=== PATIENT | male | born 1955 | race Two or more races ===

== ENCOUNTER 2024-09-08 18:40 | Inpatient (IN) | payer OTHER, MEDICARE, SELFPAY ==
--- NOTE | 2024-09-08 18:54 | EDNOTE_ITS ---
ED SOB =RME/HPI General Chief Complaint: Shortness of Breath/Dyspnea Stated Complaint: SOB Time Seen by Provider: 09/08/24 18:52 Arrival date/time: 09/08/24 18:40 Limitations: no limitations RME / HPI RME / HPI Narrative: DR. GARCIA MAIN ED EVALUATION: 69-year-old male with past medical history significant for CAD presents to the Emergency Department with complaint of wheezing that started today. The patient was seen in the emergency department yesterday for wheezing and shortness of breath diagnosed with influenza and pneumonia. The patient states that he did take his antibiotic today. EMS reports that on arrival O2 sat was 80-90% and after DuoNeb it came up to 93%. Patient states he has decreased p.o. intake has not been able to eat well secondary to the cough. No chest pain but just feels bad. Related Data Previous Rx's ?Medication ?Instructions ?Recorded albuterol sulfate 90 mcg/actuation 2 puff inhalation Q6H PRN cough 5 09/07/24 aerosol inhaler days #8.5 grams azithromycin 250 mg tablet 250 mg PO QDAY 4 days #4 tabs 09/07/24 benzonatate 100 mg capsule 100 mg PO TID PRN cough #7 caps 09/07/24 dextromethorphan 5 mg-guaifenesin 20 ml PO Q4H PRN cough #118 mL 09/07/24 50 mg/5 mL oral liquid Allergies Allergy/AdvReac Type Severity Reaction Status Date / Time codeine Allergy Severe Palpitation Verified 08/11/23 16:53 s Review of Systems Review of Systems Systems Reviewed: All systems reviewed, normal except as documented Narrative Review of Systems: GEN: No fever, no chills, no weight loss EYES: No discharge, no visual changes, no pain HEENT: No ear pain, no congestion, no sore throat PULM: + shortness of breath/ wheezing, + cough CV: No chest pain, no dyspnea on exertion, no palpitations GI: No nausea, no vomiting, no diarrhea, no pain, no constipation : No frequency, no urgency and no dysuria MUSC/SKEL: No joint pain, no back pain SKIN: No rash PSYCH: No hallucinations, no depression HEME/LYMPH: No easy bleeding or bruising tendencies NEURO: No weakness, no headache Past Medical History Past Medical History CARDIAC: Positive Cardiac Disorders and Coronary Artery Disease GASTROINTESTINAL: Positive Gastrointestinal Disorders, Pancreatitis and Gall Bladder Disease PSYCHO/SOCIAL: Positive Anxiety Surgical History SURGICAL: Positive Cardiac Surgery and Open Heart Surgery Social History SMOKING STATUS: Never smoker SUBSTANCE USE: does not use ALCOHOL: Never ED Exam Narrative Physical exam: Patient sitting the bed, slightly tachypneic and having a coughing spell spell General Limitations: Present no limitations General appearance: Present alert and obese; Absent obtunded Head Head exam: Present atraumatic Eye Eye exam: Present normal appearance ENT ENT exam: Present normal exam, normal oropharynx and mucous membranes moist Neck Neck exam: Present normal inspection, full ROM and other (No JVD) Chest Chest inspection: Present normal inspection and symmetric chest wall rise Respiratory Respiratory exam: Present normal lung sounds bilaterally and other (Decreased respiratory rate bilaterally. With no wheezing. No stridor. Tachypnea but no accessory muscle use) Cardiovascular Cardiovascular exam: Present regular rate, normal rhythm and normal heart sounds Abdominal Exam Abdominal exam: Present soft, normal bowel sounds and other (Large abdomen) Extremities Exam Extremities exam: Present normal inspection and pedal edema (Minimal pitting edema at the ankles) Neurological Exam Neurological exam: Present alert, oriented X3 and CN II-XII intact Psychiatric Psychiatric exam: Present normal affect and normal mood Skin Skin exam: Present warm, dry, intact and normal color; Absent cyanosis, diaphoresis or mottled Course Course Course Narrative: 1945: Sepsis alert initiated. Orders made at this time are congruent with ED Adult Sepsis Order List. Re-evaluation is to be completed. 1957: Fluids started. 2030: Sepsis reassessment performed consisting of lab review, vitals, physical exam including auscultation of heart, lungs, and visual evaluation of capillary refills, mucosal membranes and extremities. Quality Measures Current suspected stage: sepsis Possible source: pulmonary Blood cultures o rdered: yes Antibiotic ordered: Yes Pertinent labs: 09/08/24 19:54 Procalcitonin 0.28 ng/ml (0.0-0.49) sepsis Orders Category Date Time Status Patient Condition Routine Admission 09/08/24 22:46 Ordered Activity as Tolerated Routine Care 09/08/24 22:46 Ordered Bedside Blood Glucose ACHS Care 09/08/24 22:[address] Screening NOW Care 09/08/24 19:47 Active EKG (ED ONLY) *Do not use* NOW Care 09/08/24 18:58 Completed Notify provider NEEDED Care 09/08/24 22:46 Active Diet Carbohydrate Consistent Diet 09/08/24 Breakfast Active CA echo doppler complete Routine Exams 09/08/24 22:[address] angio chest Stat Exams 09/08/24 19:47 Completed EKG (ED Only) Stat Exams 09/08/24 18:58 Draft XR chest 1V SEPSIS PROTOCOL Stat Exams 09/08/24 18:59 Completed ABG [Arterial Blood Gas] Stat Lab 09/08/24 22:55 Completed B-Type Natriuretic Peptide Stat Lab 09/08/24 19:54 Completed Basic Metabolic Panel AM DRAW Lab 09/09/24 05:00 Ordered Basic Metabolic Panel AM DRAW Lab 09/10/24 05:00 Ordered Basic Metabolic Panel AM DRAW Lab 09/11/24 05:00 Ordered Blood Culture (Lab) Stat Lab 09/08/24 19:26 Received CBC AM DRAW Lab 09/09/24 05:00 Ordered CBC AM DRAW Lab 09/10/24 05:00 Ordered CBC AM DRAW Lab 09/11/24 05:00 Ordered CBC Stat Lab 09/08/24 19:24 Completed Comprehensive Metabolic Panel Stat Lab 09/08/24 19:54 Completed Drug Screen,Urine Stat Lab 09/09/24 02:41 Completed Magnesium Stat Lab 09/08/24 19:54 Completed Partial Thromboplastin Time Stat Lab 09/08/24 19:24 Completed Procalcitonin Stat Lab 09/08/24 19:54 Completed Prothrombin Time with INR Stat Lab 09/08/24 19:24 Completed Troponin I Stat Lab 09/08/24 19:54 Completed Urinalysis Stat Lab 09/09/24 02:41 Completed Acetaminophen Tab [Tylenol Tab] Med 09/08/24 22:46 Active 650 mg PO Q6H PRN Azithromycin Inj [Zithromax Inj] 500 mg Med 09/08/24 22:45 Pending Sodium Chloride 0.9% 250 ml [Ns] 250 ml IV QDAY Azithromycin Inj [Zithromax Inj] 500 mg Med 09/08/24 23:30 Discontinued Sodium Chloride 0.9% 250 ml [Ns] 250 ml IV X1 Dexamethasone Inj [Decadron Inj] Med 09/08/24 22:45 Discontinued 10 mg IVP X1 ONE Dextrose 50% Syr [D50w Syringe Abboject] Med 09/08/24 22:42 Active 25 ml IV Q15MIN PRN Dextrose 50% Syr [D50w Syringe Abboject] Med 09/08/24 22:42 Active 50 ml IV Q15MIN PRN Enoxaparin [Lovenox] Med 09/09/24 09:00 Active 40 mg SC QDAY Glucagon Inj Med 09/08/24 22:42 Active 1 mg IM Q15MIN PRN Insulin Regular Med 09/09/24 07:30 Active See Protocol SC ACHS Oseltamivir [Tamiflu] Med 09/08/24 22:45 Active 75 mg PO BID Piper/Tazo Inj [Zosyn Inj] 3.375 gm Med 09/08/24 22:36 Discontinued Sodium Chloride 0.9% (P) [Ns 0.9% (P)] 50 ml IV X1 Sodium Chloride 0.9% 1000 ml [Ns] 1,000 ml Med 09/08/24 18:59 Discontinued IV 999 mls/hr cefTRIAXone/D5w 1gm IV premix [Rocephin/D5w 1gm IV Med 09/08/24 22:44 Pending premix] 50 ml IV QDAY cefTRIAXone/D5w 1gm IV premix [Rocephin/D5w 1gm IV Med 09/08/24 23:00 Discontinued premix] 50 ml IV X1 Code Status Routine Oth 09/08/24 22:46 Ordered BiPAP / CPAP NEEDED RT 09/08/24 22:38 Active BiPAP / CPAP NEEDED RT 09/08/24 22:42 Active Oxygen Delivery NOW RT 09/08/24 21:12 Active Vital Signs Vital signs: Vital Signs Temperature 102.1 F H 09/08/24 18:59 Pulse Rate 98 09/08/24 18:59 Respiratory Rate 29 H 09/08/24 18:59 Blood Pressure 135/69 H 09/08/24 18:59 Pulse Oximetry (%) 92 L 09/08/24 18:59 Oxygen Delivery Method Oxy Mask 09/08/24 18:59 Oxygen Flow Rate 10 09/08/24 18:59 Procedures -ED EKG Interpretation #1: Date of EK09/08/24 Time of EK:50 Rate: 93 Interpretation: Interpreted by me Additional EKG comment: sinus rhythm, rate 93, left anterior fascicular block, flattening T wave in lead 3 and AVF, no depressions or elevations, unchanged from EKG done 09/06/2024 Shortness of Breath / Dyspnea MDM Narrative MDM Narrative:: I, Marcela Leon, am scribing for and in the presence of Dr. Garcia. Differential diagnosis includes recurrent pneumonia, failed outpatient pneumonia, pulmonary embolism, electrolyte abnormality, pleural effusion, pericardial disease. While in emergency department the patient was given oxygen, and a sepsis alert,. Patient given DuoNeb, antibiotics, blood cultures and otherwise CT angio shows incidental thoracic aneurysm at 4.8 cm however the patient is not having chest pain and doubt that is etiology of his presentation. Incidentally patient also was hyponatremic which can go with pneumonia. Patient data External records reviewed:: [facility] previous records (Reviewed last ED visit dated 09/07/24 discharged with the following: Influenza.) and EMS form Clinical information provided by:: patient and EMS Social determinants that could affect healthcare access:: none Patient has the following chronic illnesses:: CAD How is presenting disease/condition affected by chronic disease/condition?: exacerbated by Evaluation data The following diagnostics were reviewed and interpreted by me:: lab results, radiology exam(s) and EKG tracing(s) Lab and/or radiology exams considered but not ordered:: none Interpretation Summary: Procedure(s): XR chest 1V SEPSIS PROTOCOL Accession Number(s): [id number] cc: Marques Nolasco MD; Mary Garcia MD; Guanakito Baig MD~ Examination: AP chest single view Technique: AP portable semiupright chest single view Exam date and time: September 08, 2024 1931 hrs. Indications: Wheezing today. Findings: Significant bilateral pneumonia Median sternotomy wires Moderate vascular congestion Impression: Significant bilateral pneumonia Dictated By: Marques Nolasco MD [facility] Report Signed Patient: SAMAAR ALFARO Jr. [facility]. Record#: [id number] Birthdate: 1955 Age/Sex: 69 / M Location: [facility] Attending Dr: Ordering Physician: Mary Garcia MD Date of Service: 09/08/24 Procedure(s): CT angio chest Accession Number(s): [id number] cc: Marques Nolasco MD; Mary Garcia MD; Guanakito Baig MD~ Examination: CTA chest with intravenous contrast 2-D reconstructions 3-D reconstructions, vascular Date and time of exam: September 08, 2024 2133 hrs. Indications: Onset chest pain shortness of breath beginning 4 days ago CTDI: vol (mGy) 46.76 DLP: (mGycm) 664 Technique: Multiple axial sections of the thorax have been obtained. 3 mm slice thickness, from below the hemidiaphragms to above the apices of the lungs. Mediastinal and lung density settings have been obtained. 2-D sagittal and coronal reconstructions. 3-D angiographic renderings, 3-D volume renderings, 3D post processing, vascular maximum intensity projections obtained. Contrast administered is 100 cc Isovue-370. Low dose protocols were performed. One or more of the following dose reduction techniques were used; automated exposure control, adjustment of the mA and/or KV according to patient size, use of iterative reconstruction technique. Findings: AP dimension ascending thoracic aorta 4.8 cm No pulmonary artery emboli Extensive bilateral lung opacity Mild enlargement cardiac contour Gallstones No liver splenic lesion No hydronephrosis Significant osteopenia Impression: Aneurysmal dilatation ascending thoracic aorta, AP dimension 4.8 cm Negative for pulmonary artery emboli Extensive bilateral pneumonia Cholelithiasis Dictated By: Marques Nolasco MD Signed By: <Electronically signed by Marques Nolasco MD in OV> 09/08/24 8018 Medications / Prescriptions Medications or Prescriptions considered but not ordered:: none Medication administrations:: Medication Administration History Acetaminophen (Acetaminophen 325 Mg Tablet) 650 mg PO Q6H PRN PRN Reason: Fever >101.5 Stop: 10/08/24 22:45 Albuterol/Ipratropium (Albuterol/Ipratropium (Duoneb) Rt Sanjana 3 Ml Nebu) 3 ml INH Q2HR PRN PRN Reason: SHORTNESS OF BREATH OR WHEEZE Stop: 10/08/24 23:00 Benzonatate (Benzonatate 100 Mg Capsule) 100 mg PO TID PRN; Protocol PRN Reason: Cough Stop: 10/09/24 00:14 Dextrose (Dextrose 50%-Water Inj 50 Ml Syringe) 25 ml IV Q15MIN PRN PRN Reason: BG 50-70 responsive npo pt Stop: 10/08/24 22:41 Dextrose (Dextrose 50%-Water Inj 50 Ml Syringe) 50 ml IV Q15MIN PRN PRN Reason: BG <50 OR BG <70 & pt unresponsive Stop: 10/08/24 22:41 Enoxaparin Sodium (Enoxaparin Sod Inj 40 Mg/0.4 Ml Syringe) 40 mg SC QDAY EDWIN Stop: 09/23/24 08:59 Glucagon (Glucagon Inj 1 Mg Vial) 1 mg IM Q15MIN PRN PRN Reason: BG <70, and no IV access Azithromycin 500 mg/ Sodium (Chloride) 250 mls @ 250 mls/hr IV QDAY EDWIN Stop: 09/15/24 22:44 Ceftriaxone Sodium/Dextrose (Rocephin/D5w 1gm Iv Premix) 50 mls @ 100 mls/hr IV QDAY EDWIN Stop: 09/15/24 22:43 Insulin Human Regular (Insulin Hum Regular 1 Unit/0.01 Ml (Per Unit)) 0 unit SC ACHS EDWIN; Protocol Stop: 10/09/24 07:29 Oseltamivir Phosphate (Oseltamivir 75 Mg Capsule) 75 mg PO BID EDWIN Stop: 09/15/24 22:44 Last Admin: 09/09/24 02:17 Dose: 75 mg Documented By: BART Sennosides (Senna Tablet) 1 tab PO QDAY PRN; Protocol PRN Reason: CONSTIPATION Stop: 10/09/24 00:05 Discontinued Medications Dexamethasone Sodium Phosphate (Dexamethasone Sod Phos Inj 10 Mg/Ml Vial) 10 mg IVP X1 ONE; Protocol Stop: 09/08/24 22:46 Last Admin: 09/09/24 02:17 Dose: 10 mg Documented By: BART Sodium Chloride (Ns) 1,000 mls @ 999 mls/hr IV .Q1H1M ONE Stop: 12/08/24 19:59 Last Infusion: 09/08/24 22:42 Dose: Infused Documented By: Admin: 09/08/24 19:58 Dose: 999 mls/hr Documented By: BART Piperacillin Sod/Tazobactam (Sod 3.375 gm/ Sodium Chloride) 50 mls @ 100 mls/hr IV X1 ONE Stop: 09/08/24 23:05 Last Infusion: 09/09/24 03:10 Dose: Infused Documented By: Admin: 09/09/24 02:19 Dose: 100 mls/hr Documented By: BART Ceftriaxone Sodium/Dextrose (Rocephin/D5w 1gm Iv Premix) 50 mls @ 100 mls/hr IV X1 ONE Stop: 09/08/24 23:29 Last Infusion: 09/09/24 03:10 Dose: Infused Documented By: Admin: 09/09/24 02:25 Dose: 100 mls/hr Documented By: BART Azithromycin 500 mg/ Sodium (Chloride) 250 mls @ 250 mls/hr IV X1 ONE Stop: 09/09/24 00:29 Last Admin: 09/09/24 02:18 Dose: 250 mls/hr Documented By: BART Sodium Chloride (Ns) 1,638 mls @ 1,638 mls/hr 30 ml/kg infuse over 60 min (1638 ml) IV .Q1H ONE Stop: 09/09/24 00:32 Last Admin: 09/09/24 02:20 Dose: 1,638 mls/hr Documented By: BART Sodium Chloride (Sodium Chloride Rt 10% 15 Ml Nebu) 5 ml INH X1 ONE Stop: 09/09/24 00:00 see above Consultations Consultation(s) initiated? (list below): Yes Consultation #1 (Physician, Specialty, Details): Discussed case with [Dr. Eckert] from Hospitalist service regarding admission. Discussed patients ED course, exam findings, labs, and radiology results. The Hospitalist [agrees] to accept the patient for admission. Diagnosis Shortness of Breath Differential Diagnosis: congestive heart failure, community acquired pneumonia, asthma with exacerbation and pulmonary embolism Most likely diagnosis given after review of the tests above:: see below Admission Indicated Admission indicated?: indicated Admission Request Was there a request for admission?: Yes Admission Attestation Admission request attestation: Discussed case with [] from Hospitalist service regarding admission. Discussed patients ED course, exam findings, labs, and radiology results. The Hospitalist [agrees,declines] to accept the patient for admission. Disposition Plan Disposition Plan: Admit Critical Care Time Critical Care Time Critical Care Time: Yes Total Critical Care Time (min.): 45 Attestation: The high probability of sudden, clinically significant deterioration in the patient?s condition required the highest level of my preparedness to intervene urgently. The services I provided to this patient were to treat and/or prevent clinically significant deterioration. Services included the following: chart data review, reviewing nursing notes and/or old charts, documentation time, functional consultant collaboration regarding findings and treatment options, medication orders and management, direct patient care, vital sign assessments and ordering, interpreting and reviewing diagnostic studies and lab tests. Aggregate critical care time includes only time during which I was engaged in work directly related to the patient?s care, as described above, whether at bedside or elsewhere in the Emergency Department. It did not include time spent performing other reported procedures or the services of residents, students, nurses or physician assistants. Discharge Plan Plan Patient Disposition: Admit Acute Care w/in Hospital Patient condition on transfer: Stable Problem List Clinical Impression: Bilateral pneumonia, Failure of outpatient treatment, Aneurysm of thoracic aorta, Acute hyponatremia, Acute dyspnea, Hypoxia, History of H. influenzae pneumonia, Sepsis
--- NOTE | 2024-09-08 18:58 | EKG_ITS ---
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
[2024-09-08 18:59] VITALS: BP 135/69; PULSE 98; RESP 29; TEMP 38.9; O2SAT 92
--- NOTE | 2024-09-08 18:59 | XR_ITS ---
Examination: AP chest single view Technique: AP portable semiupright chest single view Exam date and time: September 08, 2024 1931 hrs. Indications: Wheezing today. Findings: Significant bilateral pneumonia Median sternotomy wires Moderate vascular congestion Impression: Significant bilateral pneumonia
[2024-09-08 19:36] LABS: Basophils % (Auto) 0 % (0-2.5); Eosinophils % (Auto) 0 % (0-10); Hematocrit 46.1 % (41.0-53.0); Immature Granulocytes % (Auto) 1 % (0-0); Immature Granulocytes Auto 0.02 Thou/mm3 (0.00-0.00); Lymphocytes # (Auto) 0.4 Thou/mm3 (1.0-4.8); Lymphocytes % (Auto) 12 % (10-50); Mean Corpuscular HGB Conc 34.7 g/dl (31.0-37.0); Mean Corpuscular Hemoglobin 31.6 pg (25.0-35.0); Mean Corpuscular Volume 91 fL (80-100); Monocytes # (Auto) 0.2 Thou/mm3 (0.0-0.8); Monocytes % (Auto) 4 % (0-12); Neutrophils # (Auto) 2.9 Thou/mm3 (1.8-7.7); Neutrophils % (Auto) 83 % (37-80); Nucleated Red Blood Cell % 0 /100 WBC (0); Platelet Count 105 Thou/mm3 (140-440); RDW Standard Deviation 45.3 fL (35.1-43.9); Red Blood Count 5.07 Miln/mm3 (4.50-5.90); White Blood Count 3.4 Thou/mm3 (3.8-10.6)
--- NOTE | 2024-09-08 19:47 | XR_ITS ---
Examination: CTA chest with intravenous contrast 2-D reconstructions 3-D reconstructions, vascular Date and time of exam: September 08, 2024 2133 hrs. Indications: Onset chest pain shortness of breath beginning 4 days ago CTDI: vol (mGy) 46.76 DLP: (mGycm) 664 Technique: Multiple axial sections of the thorax have been obtained. 3 mm slice thickness, from below the hemidiaphragms to above the apices of the lungs. Mediastinal and lung density settings have been obtained. 2-D sagittal and coronal reconstructions. 3-D angiographic renderings, 3-D volume renderings, 3D post processing, vascular maximum intensity projections obtained. Contrast administered is 100 cc Isovue-370. Low dose protocols were performed. One or more of the following dose reduction techniques were used; automated exposure control, adjustment of the mA and/or KV according to patient size, use of iterative reconstruction technique. Findings: AP dimension ascending thoracic aorta 4.8 cm No pulmonary artery emboli Extensive bilateral lung opacity Mild enlargement cardiac contour Gallstones No liver splenic lesion No hydronephrosis Significant osteopenia Impression: Aneurysmal dilatation ascending thoracic aorta, AP dimension 4.8 cm Negative for pulmonary artery emboli Extensive bilateral pneumonia Cholelithiasis
[2024-09-08 19:56] LABS: INR 1.3 (0.9-1.3); Partial Thromboplastin Time 32.4 Seconds (22.0-36.0); Prothrombin Time 14.2 Seconds (9.0-12.2)
[2024-09-08] MEDS: SODIUM CHLORIDE 0.9% 1000 ML 1,000 ML 999 ML IV (19:58)
[2024-09-08 20:02] VITALS: BP 135/77; PULSE 98; RESP 24; TEMP 39.1; O2SAT 90; BMI 46.6
[2024-09-08 20:30] LABS: B-Type Natriuretic Peptide 66 pg/mL (0-100)
[2024-09-08 20:32] LABS: Alanine Aminotransferase 93 U/L (10-49); Albumin, Serum 3.7 gm/dL (3.4-4.8); Albumin/Globulin Ratio 1.7 (1.2-2.2); Alkaline Phosphatase 65 U/L (46-116); Anion Gap 6 (7-16); Aspartate Amino Transferase 167 U/L (0-34); BUN/Creatinine Ratio 17 Ratio (12-20); Blood Urea Nitrogen 15 mg/dL (9-23); Calcium 8.4 mg/dL (8.3-10.6); Calcium (Corrected) 8.6 mg/dL (8.5-10.1); Carbon Dioxide 26.3 mMol/L (20.0-31.0); Chloride 94 mMol/L (98-107); Creatinine (Component) 0.9 mg/dL (0.6-1.3); Globulin 2.2 gm/dL (2.3-3.5); Glucose 162 mg/dL (74-106); Magnesium 1.9 mg/dL (1.6-2.6); Osmolality,Calculated 258 (275-295); Potassium 4.9 mMol/L (3.4-5.1); Sodium 126 mMol/L (136-145); Total Protein 5.9 gm/dL (5.7-8.2); Troponin I < 0.020 ng/mL (0.0-0.045); eGFR > 60 See Note
[2024-09-08 21:13] VITALS: PULSE 96; RESP 30; O2SAT 93
--- NOTE | 2024-09-08 21:50 | PC.RT ---
pt back from ct without complications, taken on transport high flow 35L 100% pt sats 92-94%
[2024-09-08 22:30] VITALS: BP 133/78; PULSE 102; RESP 28; TEMP 37.2; O2SAT 92
--- NOTE | 2024-09-08 22:39 | PC.RT ---
pt spo2 79% went to room immediately, pt did not have high flow on nose place high flow immediately at 40aL 100%, spo2 improved to 91%, RR30s, Dr. wray assissing pt at this time.
--- NOTE | 2024-09-08 22:45 | ECHO_ITS ---
Transthoracic Echo Report Ht (in): 62 Wt (lb): 255 Exam Location: Portable Status: Inpatient Director Nicu: Karely Bowling Indications: Procedure Performed: BP: 151 / 86 HR: 91 Rhythm: Sinus Technical Quality: Technically difficult study MEASUREMENTS (Male / Female) Normal Values 2D ECHO LV Diastolic Diameter PLAX 4.2 cm 4.2 - 5.9 / 3.9 - 5.3 cm LV Systolic Diameter PLAX 3.3 cm IVS Diastolic Thickness 1.1 cm 0.6 - 1.0 / 0.6 - 0.9 cm LVPW Diastolic Thickness 1.1 cm 0.6 - 1.0 / 0.6 - 0.9 cm LV Relative Wall Thickness 0.5 LVOT Diameter 2.1 cm LA Volume Index 33.6 cm?/m? 16 - 28 cm?/m? Ascending Aorta Diameter 3.7 cm M-MODE Aortic Root Diameter MM 3.7 cm LA Systolic Diameter MM 4.2 cm LA Ao Ratio MM 1.1 AV Cusp Separation MM 2.7 cm DOPPLER AV Peak Velocity 110.0 cm/s AV Peak Gradient 4.8 mmHg AV Mean Gradient 2.0 mmHg AV Velocity Time Integral 18.8 cm LVOT Peak Velocity 96.8 cm/s LVOT Peak Gradient 3.7 mmHg LVOT Velocity Time Integral 19.0 cm LVOT Cardiac Index 2580.9 cm?/min?m? AV Area Cont Eq vti 3.5 cm? AV Area Cont Eq pk 3.0 cm? MV Peak Velocity 108.0 cm/s MV Peak Gradient 4.7 mmHg MV Mean Velocity 53.1 cm/s MV Mean Gradient 1.0 mmHg MV Area PHT 4.8 cm? Mitral E Point Velocity 57.2 cm/s Mitral A Point Velocity 110.0 cm/s Mitral E to A Ratio 0.5 LV E' Lateral Velocity 9.1 cm/s Mitral E to LV E' Lateral Ratio 6.3 LV E' Septal Velocity 5.3 cm/s Mitral E to LV E' Septal Ratio 10.7 FINDINGS Left Ventricle Normal left ventricular size. Mild LVH. Low normal function. Mild hypokinesis mid anterior septal wa ll. The ejection fraction is visually estimated at 45-50 %. Right Ventricle The right ventricle is normal in size and systolic function. Left Atrium The left atrium is normal by two-dimensional, color flow and Doppler imaging with no structural abnormalities, no thrombus formation present. Right Atrium The right atrium is normal by two-dimensional imaging, color flow and Doppler imaging with no struct ural abnormalities, no thrombus formation present. Atrial Septum The interatrial septum appears normal with no evidence of a shunt. Aorta The ascending aorta is mildly dilated. Mitral Valve The mitral valve is mildly MAC. There is no significant mitral valve regurgitation. Aortic Valve The aortic valve is trileaflet and normal by two-dimensional, color flow and Doppler interrogation. There is no significant aortic valve regurgitation. Tricuspid Valve The tricuspid valve is normal by two-dimensional, color flow and Doppler interrogation. There is no significant tricuspid valve regurgitation. Pulmonic Valve The pulmonic valve is not well visualized. There is no significant pulmonic valve regurgitation. Vessels The pulmonary artery appears normal. The inferior vena cava pulmonary and hepatic veins appear mildl y dilated. Pericardium The pericardium is normal by two-dimensional imaging. There is no significant pericardial effusion. CONCLUSIONS Suboptimal images due to body habitus. Normal LV size. Low normal systolic function. Mild LVH. Mild hypokinesis mid anterior septal wall. Estimated EF 45-50% RV and RA not well visualized. Ascending aorta is milldy dilated. Mild MAC. IVC dilated. Tania Ho (Electronically Signed) Final Date: 10 September 2024 11:05
--- NOTE | 2024-09-08 22:59 | PD.RESHP ---
Documentation for date of: 09/08/24 HPI History of Present Illness Chief complaint: Shortness of breath History of present illness: 69-year-old male with past medical history of coronary artery disease and open heart surgery in 2004 for bypass surgery, gastritis/GERD, [id number] type 2 diabetes is presenting to the ED on 09/08 with worsening shortness of breath and cough. Patient states that about 1 week ago his symptoms started with some mild coughing and shortness of breath which was worse with ambulation. Patient states that he was in close proximity with some sick contacts; however, he does live alone. Patient also states that during this time he started to develop subjective fevers but did not check his temperature as he does not have a thermometer. Patient went to his family care physician who gave him oral antibiotics and some form of injection which she is not familiar with; moreover, he was told that if his symptoms do not improve to present to the ED. Patient has extensive history of cardiac disease and apparently follows with a outdoor adventure [facility] in town; however, he could not name the outdoor adventure guides but simply stated that the office is near the [facility]. Patient last visited the outdoor adventure guides about a year ago and states that at that time everything was fine. 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 Pertinent lab findings include WBC of 3.4, platelet 105 sodium 126, chloride 94, glucose 162, magnesium 1.9, AST 167, ALT 93, troponin within normal limits, BNP 66. Influenza A positive. Chest x-ray showed significant bilateral pneumonia, EKG showed sinus rhythm and left fascicular block with a pattern consistent with pulmonary disease, CTA chest showed aneurysmal dilation of the ascending thoracic aorta (4.8 cm), no pulmonary artery emboli, extensive bilateral pneumonia and possible cholelithiasis. Patient will be admitted to the hospital for failing outpatient treatment for pneumonia, and acute hypoxic respiratory failure secondary to pneumonia requiring supplemental oxygenation. Exam Vital Signs Temp Pulse Resp BP Pulse Ox O2 Del Method O2 Flow Rate 102.4 F H 96 30 H 135/77 H 93 L Oxy Mask 35 09/08/24 20:02 09/08/24 21:13 09/08/24 21:13 09/08/24 20:02 09/08/24 21:13 09/08/24 20:02 09/08/24 21:13 FiO2 100 09/08/24 21:13 Narrative Exam Physical Exam: GENERAL: Obese, appears stated age, answering questions appropriately but appears in mild/mod respiratory distress. HEENT: NC/AT. Moist mucosa. PERRLA/EOMI. CARDIO: III/ systolic ejection murmur noted on L sternal border, regular rate, no rubs/gallops auscultated PULM: Sporadic dry coughing, patient unable to take deep inspirations 2/2 to cough, reduced lung sounds bilaterally, no crackles/wheeze/rhonci GI: Abdomen soft, NT/ND, +BS. SKIN/MSK/EXT: No wounds/discoloration/rashes/edema/amputations noted. +Pedal pulses present B/L. 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 Results: Labs 09/08/24 19:24 09/08/24 19:54 Labs: Short CBC 09/08/24 Range/Units 19:24 WBC 3.4 L (3.8-10.6) Thou/mm3 Hgb 16.0 (13.5-16.0) g/dL Hct 46.1 (41.0-53.0) % Plt Count 105 L (140-440) Thou/mm3 BMP 09/08/24 19:54 Sodium 126 L Potassium 4.9 Chloride 94 L Carbon Dioxide 26.3 BUN 15 Creatinine 0.9 Glucose 162 H Calcium 8.4 Cardiac Enzymes 09/08/24 Range/Units 19:54 Troponin I < 0.020 (0.0-0.045) ng/mL Liver Function 09/08/24 Range/Units 19:54 Total Bilirubin 1.0 (0.3-1.2) mg/dL AST 167 H (0-34) U/L ALT 93 H (10-49) U/L Alkaline Phosphatase 65 (46-116) U/L Albumin 3.7 D (3.4-4.8) gm/dL Quality Measures Quality Measures sepsis Current suspected stage: sepsis Possible source: pulmonary Blood cultures ordered: yes Antibiotic ordered: Yes Advance care planning discussed with:: patient Medications Home Medications and Allergies Allergies Allergy/AdvReac Type Severity Reaction Status Date / Time codeine Allergy Severe Palpitation Verified 08/11/23 16:53 s Visit Medications Acetaminophen (Acetaminophen 325 Mg Tablet) 650 mg PO Q6H PRN PRN Reason: Fever >101.5 Stop: 10/08/24 22:45 Dextrose (Dextrose 50%-Water Inj 50 Ml Syringe) 25 ml IV Q15MIN PRN PRN Reason: BG 50-70 responsive npo pt Stop: 10/08/24 22:41 Dextrose (Dextrose 50%-Water Inj 50 Ml Syringe) 50 ml IV Q15MIN PRN PRN Reason: BG <50 OR BG <70 & pt unresponsive Stop: 10/08/24 22:41 Enoxaparin Sodium (Enoxaparin Sod Inj 40 Mg/0.4 Ml Syringe) 40 mg SC QDAY EDWIN Stop: 09/23/24 08:59 Glucagon (Glucagon Inj 1 Mg Vial) 1 mg IM Q15MIN PRN PRN Reason: BG <70, and no IV access Piperacillin Sod/Tazobactam (Sod 3.375 gm/ Sodium Chloride) 50 mls @ 100 mls/hr IV X1 ONE Stop: 09/08/24 23:05 Azithromycin 500 mg/ Sodium (Chloride) 250 mls @ 250 mls/hr IV QDAY EDWIN Stop: 09/15/24 22:44 Ceftriaxone Sodium/Dextrose (Rocephin/D5w 1gm Iv Premix) 50 mls @ 100 mls/hr IV QDAY EDWIN Stop: 09/15/24 22:43 Ceftriaxone Sodium/Dextrose (Rocephin/D5w 1gm Iv Premix) 50 mls @ 100 mls/hr IV X1 ONE Stop: 09/08/24 23:29 Azithromycin 500 mg/ Sodium (Chloride) 250 mls @ 250 mls/hr IV X1 ONE Stop: 09/09/24 00:29 Insulin Human Regular (Insulin Hum Regular 1 Unit/0.01 Ml (Per Unit)) 0 unit SC ACHS EDWIN; Protocol Stop: 10/09/24 07:29 Oseltamivir Phosphate (Oseltamivir 75 Mg Capsule) 75 mg PO BID EDWIN Stop: 09/15/24 22:44 Discontinued Medications Dexamethasone Sodium Phosphate (Dexamethasone Sod Phos Inj 10 Mg/Ml Vial) 10 mg IVP X1 ONE; Protocol Stop: 09/08/24 22:46 Sodium Chloride (Ns) 1,000 mls @ 999 mls/hr IV .Q1H1M ONE Stop: 09/08/24 19:59 Last Infusion: 09/08/24 22:42 Dose: Infused Assessment & Plan Plan 69-year-old male with past medical history of coronary artery disease and open heart surgery in 2004 for bypass surgery, gastritis/GERD, [id number] type 2 diabetes is presenting to the ED on 09/08 with worsening shortness of breath and cough will be admitted to the hospital for failing outpatient treatment for pneumonia, likely viral pneumonia in the setting of bilateral lung findings, and acute hypoxic respiratory failure secondary to pneumonia requiring supplemental oxygenation. #Acute Hypoxic Respiratory Failure 2/2 to #Extensive bilateral pneumonia #Influenza A positive Patient has symptoms for +1week with SOB and coughing Failed outpatient treatment with oral abx and steroid injection? Presenting with hypoxemia requiring supplemental oxygen (FiO2 40% and 100L) with WBC <4, Febrile (102F), RR>20, mildly Tachy 96 (SIRS + source) Organ failure noted with elevated liver enzymes from baseline CXR shows severe bilateral PNA CTA of chest shows no pulmonary artery emboli and extensive bilateral pneumonia In ED, patient recieved x1 dose of Zosyn Plan: On HFNC, wean as tolerated Started Tamiflu and IV Ceftriaxone and PO Azithromycin Follow-up on blood cultures, RSV, Cocci, urine Legionella, sputum cultures Supplemental oxygen as needed Benzonatate 100mg tid prn for cough #Neutropenia #Thrombocytopenia Likely 2/2 to acutely ill status vs. MDS vs. hematologic malignancy Plan: F/u with morning labs Monitor for need for IVF resuscitation #Electrolyte abnormalities #Hyponatremia Plan: Replete as necessary #Non-insulin dependent, type 2 diabetes mellitus Last A1c of 7.2 on 01/2024 Plan: SSI Regular insulin Bedside glucose checks F/u with morning A1c #Elevated Liver Enzymes #Morbid obesity Secondary to acutely ill status vs. MASLD vs. viral hepatitis, autoimmune hepatitis, primary hepatocellular disease Patient denies drinking alcohol; is obese with BMI of 46.6 Plan: F/u with morning labs and upon improvement in presenting diagnosis #CAD s/p bypass surgery 2004 #Aneurysmal dilatation thoracic aorta (4.8cm) #Hypertension #Hyperlipidemia Patient on aspirin and a blood pressure medication; pending med rec Follows a [facility] in [place]; doesn't know name of outdoor adventure guides Echo from 06/24 shows: Normal LV size and function. Estimated EF 50-55% Normal RV size and function Trace MR, TR, AI EKG shows sinus rhythm with several PVCs and left axis deviation and signs of pulmonary disease Plan: Repeat echo ordered Restart home medications once med rec completed Lipid panel ordered Hospital Management: Lines - PIV Diet - Carb consistent Bowel - Senna prn GI prophylaxis - not needed DVT prophylaxis - Lovenox Dispo - Treating and w/o for atypical PNA and AHRF requiring HFNC Code - Full Patient seen and examined with attending Dr. Eckert and senior resident Dr. Gama Schultz, PGY-1 Attending Provider Attestation/Addendum Pt was evaluated and plan formulated together with the housestaff team. I have reviewed the residents note above and agree with most of its content. Please refer to the residents note for additional details. Worsening pneumonia requires oxygen supplementation. Begin Tamiflu and IV antibiotic treatment promptly.
[2024-09-08 23:17] LABS: Base Excess 1 (-3-3); HCO3 26 mEq/L (20-26); O2 Saturation 95 % (91-98); PCO2 42 mmHg (32.0-48.0); PO2 75 mmHg (83-108)
[2024-09-08 23:18] LABS: Allen Test Performed/OK; Puncture Site Right Radial
[2024-09-08 23:19] LABS: Inspired Oxygen, FIO2 100 %
[2024-09-08 23:48] LABS: Procalcitonin 0.28 ng/ml (0.0-0.49)
[2024-09-09] VITALS (17 sets, daily range): BP systolic 114–139; BP diastolic 73–96; PULSE 74–100; RESP 11–33; TEMP 36.1–36.9; O2SAT 85–100
[2024-09-09] MEDS: OSELTAMIVIR 75 MG CAPSULE PO ×3 (02:17→22:06)
[2024-09-09] MEDS: DEXAMETHASONE SOD PHOS INJ 10 MG/ML VIAL IVP (02:17)
[2024-09-09] MEDS: AZITHROMYCIN INJ 500 MG in SODIUM CHLORIDE 0.9% 250 ML 250 ML 250 MG IV (02:18)
[2024-09-09] MEDS: PIPER/TAZO INJ 3.375 GM in SODIUM CHLORIDE 0.9% (P) 50 ML IV (02:19)
[2024-09-09] MEDS: SODIUM CHLORIDE 0.9% 1000 ML 1,638 ML 1638 ML IV (02:20)
[2024-09-09] MEDS: cefTRIAXone/D5w 1gm IV premix 50 ML IV ×2 (02:25→22:14)
--- NOTE | 2024-09-09 02:34 | XR_ITS ---
Examination: Abdomen sonogram, Limited Date and time of exam: September 09, 2024 0901 hours INDICATIONS: Acute hypoxic respiratory failure with elevated liver enzymes on laboratory examination today Technique: Real-time young scale transabdominal sonographic images of the upper abdomen obtained. Findings: Multiple tiny gallstones Gallbladder wall 0.3 cm no edema Common bile duct incompletely visualized 0.3 cm Pancreas obscured by bowel gas Liver 15.5 cm fatty infiltration Normal hepatopedal portal venous flow IVC obscured by bowel gas IMPRESSION: Cholelithiasis, tiny gallstones Common bile duct incompletely visualized, MRCP follow-up would best assess for tiny common bile duct stones
[2024-09-09 02:47] LABS: Collection Type, Urine Clean Catch; WBC,Urine 0 /hpf (0-5)
[2024-09-09 02:55] LABS: Bilirubin,Urine Negative (Negative); Blood,Urine 2+ (Negative); Clarity,Urine Clear (Clear/Hazy); Color,Urine Yellow (Lt Yel-Yel); Glucose, Urine Negative (Negative); Ketones,Urine 2+ (Negative); Leukocyte Esterase,Urine Negative (Negative); Nitrite,Urine Negative (Negative); Protein,Urine 2+ (Neg - Trace); RBC,Urine 5 /hpf (0-3); Specific Gravity,Urine 1.035 (1.001-1.035); Squamous Epithelial Cell,Urine 1 /hpf (0-5); Urobilinogen,Urine Negative mg/dL (0.0-1.0)
[2024-09-09 03:24] LABS: Amphetamine/Methamp Scrn,U Negative (Negative); Barbiturate Screen,Urine Negative (Negative); Benzodiazepines Screen,Urine Negative (Negative); Benzoylecgonine Screen, Ur Negative (Negative); Fentanyl Screen,Urine Negative (Negative); Opiate Screen,Urine Positive (Negative); THC Screen,Urine Negative (Negative)
--- NOTE | 2024-09-09 04:03 | PC.NURSE ---
Pt sitting on the foot of his bed. feels better and breaths easier. pt states feeling better.
--- NOTE | 2024-09-09 04:15 | PC.NURSE ---
pt Pt up to BSC and had BM
--- NOTE | 2024-09-09 04:25 | PC.NURSE ---
Assisted pt up to BSC.. call light within reach.
[2024-09-09] MEDS: SODIUM CHLORIDE RT 10% 15 ML NEBU 5 ML INH (04:50)
--- NOTE | 2024-09-09 05:06 | PC.NURSE ---
Rt was in to check on pt.
[2024-09-09 06:18] LABS: Basophils % (Auto) 0 % (0-2.5); Eosinophils % (Auto) 0 % (0-10); Hematocrit 46.7 % (41.0-53.0); Hemoglobin 15.9 g/dL (13.5-16.0); Immature Granulocytes % (Auto) 0 % (0-0); Immature Granulocytes Auto 0.02 Thou/mm3 (0.00-0.00); Lymphocytes # (Auto) 0.3 Thou/mm3 (1.0-4.8); Lymphocytes % (Auto) 7 % (10-50); Mean Corpuscular Hemoglobin 31.4 pg (25.0-35.0); Mean Corpuscular Volume 92 fL (80-100); Monocytes # (Auto) 0.1 Thou/mm3 (0.0-0.8); Monocytes % (Auto) 3 % (0-12); Neutrophils # (Auto) 4.3 Thou/mm3 (1.8-7.7); Neutrophils % (Auto) 90 % (37-80); Nucleated Red Blood Cell % 0 /100 WBC (0); Platelet Count 96 Thou/mm3 (140-440); RDW Standard Deviation 46.5 fL (35.1-43.9); Red Blood Count 5.06 Miln/mm3 (4.50-5.90); White Blood Count 4.8 Thou/mm3 (3.8-10.6)
[2024-09-09 06:27] LABS: Glucose Estimated Average 180 mg/dL (80-131); Hemoglobin A1C 7.9 % Hgb (4.8-6.0)
[2024-09-09 06:35] LABS: Anion Gap 6 (7-16); BUN/Creatinine Ratio 14 Ratio (12-20); Blood Urea Nitrogen 14 mg/dL (9-23); Calcium 8.1 mg/dL (8.3-10.6); Carbon Dioxide 25.6 mMol/L (20.0-31.0); Cardiac Risk Estimate 2.7 RATIO (4.0-6.7); Chloride 94 mMol/L (98-107); Cholesterol 128 mg/dL (132-200); Estimated Creatinine Clearance 80.1 mL/min (>60); Glucose 243 mg/dL (74-106); HDL Cholesterol 48 mg/dL (40-60); LDL Cholesterol,Calculated 62 mg/dL (0-130); Osmolality,Calculated 261 (275-295); Sodium 126 mMol/L (136-145); Triglycerides 92 mg/dL (30-150); eGFR > 60 See Note
--- NOTE | 2024-09-09 06:59 | PC.RT ---
pt has cup at bed side not able to produce sputum.
[2024-09-09] MEDS: INSULIN HUM REGULAR 1 UNIT/0.01 ML (PER UNIT) SC ×4 (08:15→22:35)
[2024-09-09 08:50] LABS: Troponin I < 0.020 ng/mL (0.0-0.045)
[2024-09-09] MEDS: ENOXAPARIN SOD INJ 40 MG/0.4 ML SYRINGE SC (09:27)
[2024-09-09] MEDS: ASPIRIN EC 81 MG TABEC PO (09:27)
[2024-09-09 10:03] LABS: B-Type Natriuretic Peptide 54 pg/mL (0-100)
[2024-09-09 11:18] LABS: COVID-19 Antigen (In-House) Negative (Negative)
[2024-09-09] MEDS: FUROSEMIDE INJ 10 MG/ML 4ML VIAL 40 MG IVP ×2 (12:06→18:20)
[2024-09-09 14:50] LABS: Cocci Serology, IgM Negative (Negative)
--- NOTE | 2024-09-09 16:38 | ESPR_ITS ---
<Statement entered by Lashae Yan MD - 09/10/24 18:46> Patient was seen and examined at bedside. Patient continued to deteriorate and his respiratory rate went up to 38 on max high flow nasal cannula for that reason we consulted the ICU team in which they recommended to start the patient on steroid, DuoNebs scheduled, repeat another dose of Lasix, and put the patient on BiPAP and will continue to monitor the patient for need to be intubated. We added for the patient vancomycin to include coverage for possible staph. Pending culture and sensitivity results and MRSA screening test. - Patient's plan and care discussed with my attending, Dr. Shaheen Yan MD Internal Medicine PGY-2 Documentation for date of: 09/09/24 Subjective Subjective Interval history: Patient states that he feels about the same as when he was seen in ED. Denies chest pain. Reports smoking and drinking when he was young in his 20s but stopped. He denies living with anyone that smokes cigarettes. Exam Vital Signs Temp Pulse Resp BP Pulse Ox O2 Del Method O2 Flow Rate 97.9 F 75 26 H 128/82 98 High Flow Nasal Cannula 40 09/09/24 12:00 09/09/24 13:28 09/09/24 13:28 09/09/24 12:06 09/09/24 13:28 09/09/24 12:00 09/09/24 13:28 FiO2 83 09/09/24 13:28 Narrative Exam General: Resting in bed, in no acute distress. HEENT: Normocephalic, atraumatic, conjunctiva clear, sclera non-icteric, EOM intact, PERRL, Heart: Regular rate and rhythm, no murmur or gallop Lungs:Rales in bibasilar posterior lungs, no wheezes Abdomen:non tender to palpation, no organomegaly or masses Extremities:+1 pitting b/l edema, peripheral pulses intact Neurologic:Moves all extremities spontaneously, A&Ox3 Psychiatric: Cooperative, normal mood and affect. Objective Labs 09/10/24 05:41 09/10/24 05:41 Labs: Laboratory Results - last 24 hr 09/08/24 09/08/24 09/08/24 19:24 19:54 22:55 WBC 3.4 L RBC 5.07 Hgb 16.0 Hct 46.1 MCV 91 MCH 31.6 MCHC 34.7 RDW Std Deviation 45.3 H Plt Count 105 L Neut % (Auto) 83 H Lymph % (Auto) 12 Pine % (Auto) 4 Eos % (Auto) 0 Baso % (Auto) 0 Neut # (Auto) 2.9 Lymph # (Auto) 0.4 L Pine # (Auto) 0.2 Eos # (Auto) 0.0 Baso # (Auto) 0.0 Immature Gran # (Auto) 0.02 H Absolute Nucleated RBC 0.00 Immature Gran % 1 H Nucleated RBC % 0 PT 14.2 H INR 1.3 APTT 32.4 Puncture Site Right Radial ABG pH 7.40 ABG pCO2 42 ABG pO2 75 L ABG HCO3 26 ABG O2 Saturation 95 ABG Base Excess 1 FiO2 100 Sodium 126 L Potassium 4.9 Chloride 94 L Carbon Dioxide 26.3 Anion Gap 6 L BUN 15 Creatinine 0.9 Estim Creat Clear Calc 89.0 eGFR > 60 BUN/Creatinine Ratio [address] Glu mg/dL Hemoglobin A1c Calculated Osmolality 258 L Calcium 8.4 Corrected Calcium 8.6 Magnesium 1.9 Total Bilirubin 1.0 AST 167 H ALT 93 H Alkaline Phosphatase 65 Troponin I < 0.020 B-Natriuretic Peptide 66 Total Protein 5.9 Albumin 3.7 D Globulin 2.2 L Albumin/Globulin Ratio 1.7 Triglycerides Cholesterol LDL Cholesterol, Calc HDL Cholesterol Cholesterol/HDL Ratio Procalcitonin 0.28 Ur Collection Type Urine Color Urine Clarity Urine pH Ur Specific [place] Urine Protein Urine Glucose (UA) Urine Ketones Urine Blood Urine Nitrite Urine Bilirubin Urine Urobilinogen (Auto) Ur Leukocyte Esterase Urine RBC Urine WBC Ur Squamous Epith Cells Urine Bacteria Urine Opiates Screen Urine Fentanyl Screen Ur Barbiturates Screen U Amphetamin/Meth Scrn U Benzodiazepines Scrn U Cocaine Metab Screen U Marijuana (THC) Screen Coccidioides IgM Ab SARS-CoV-2 Ag (Rapid) 09/09/24 09/09/24 09/09/24 02:41 04:53 09:26 WBC 4.8 D RBC 5.06 Hgb 15.9 Hct 46.7 MCV 92 MCH 31.4 MCHC 34.0 RDW Std Deviation 46.5 H Plt Count 96 L Neut % (Auto) 90 H Lymph % (Auto) 7 L Pine % (Auto) 3 Eos % (Auto) 0 Baso % (Auto) 0 Neut # (Auto) 4.3 Lymph # (Auto) 0.3 L Pine # (Auto) 0.1 Eos # (Auto) 0.0 Baso # (Auto) 0.0 Immature Gran # (Auto) 0.02 H Absolute Nucleated RBC 0.00 Immature Gran % 0 Nucleated RBC % 0 PT INR APTT Puncture Site ABG pH ABG pCO2 ABG pO2 ABG HCO3 ABG O2 Saturation ABG Base Excess FiO2 Sodium 126 L Potassium 5.0 Chloride 94 L Carbon Dioxide 25.6 Anion Gap 6 L BUN 14 Creatinine 1.0 Estim Creat Clear Calc 80.1 eGFR > 60 BUN/Creatinine Ratio 14 Glucose [address] Glu mg/dL 180 H Hemoglobin A1c 7.9 H Calculated Osmolality 261 L Calcium 8.1 L Corrected Calcium Magnesium Total Bilirubin AST ALT Alkaline Phosphatase Troponin I < 0.020 B-Natriuretic Peptide 54 Total Protein Albumin Globulin Albumin/Globulin Ratio Triglycerides 92 Cholesterol 128 L LDL Cholesterol, Calc 62 HDL Cholesterol 48 Cholesterol/HDL Ratio 2.7 L Procalcitonin Ur Collection Type Clean Catch Urine Color Yellow Urine Clarity Clear Urine pH 6.0 Ur Specific [place] 1.035 Urine Protein 2+ A Urine Glucose (UA) Negative Urine Ketones 2+ A Urine Blood 2+ A Urine Nitrite Negative Urine Bilirubin Negative Urine Urobilinogen (Auto) Negative Ur Leukocyte Esterase Negative Urine RBC 5 H Urine WBC 0 Ur Squamous Epith Cells 1 Urine Bacteria None Urine Opiates Screen Positive A Urine Fentanyl Screen Negative Ur Barbiturates Screen Negative U Amphetamin/Meth Scrn Negative U Benzodiazepines Scrn Negative U Cocaine Metab Screen Negative U Marijuana (THC) Screen Negative Coccidioides IgM Ab Negative SARS-CoV-2 Ag (Rapid) 09/09/24 10:40 WBC RBC Hgb Hct MCV MCH MCHC RDW Std Deviation Plt Count Neut % (Auto) Lymph % (Auto) Pine % (Auto) Eos % (Auto) Baso % (Auto) Neut # (Auto) Lymph # (Auto) Pine # (Auto) Eos # (Auto) Baso # (Auto) Immature Gran # (Auto) Absolute Nucleated RBC Immature Gran % Nucleated RBC % PT INR APTT Puncture Site ABG pH ABG pCO2 ABG pO2 ABG HCO3 ABG O2 Saturation ABG Base Excess FiO2 Sodium Potassium Chloride Carbon Dioxide Anion Gap BUN Creatinine Estim Creat Clear Calc eGFR BUN/Creatinine Ratio Glucose Estimated Ave Glu mg/dL Hemoglobin A1c Calculated Osmolality Calcium Corrected Calcium Magnesium Total Bilirubin AST ALT Alkaline Phosphatase Troponin I B-Natriuretic Peptide Total Protein Albumin Globulin Albumin/Globulin Ratio Triglycerides Cholesterol LDL Cholesterol, Calc HDL Cholesterol Cholesterol/HDL Ratio Procalcitonin Ur Collection Type Urine Color Urine Clarity Urine pH Ur Specific [place] Urine Protein Urine Glucose (UA) Urine Ketones Urine Blood Urine Nitrite Urine Bilirubin Urine Urobilinogen (Auto) Ur Leukocyte Esterase Urine RBC Urine WBC Ur Squamous Epith Cells Urine Bacteria Urine Opiates Screen Urine Fentanyl Screen Ur Barbiturates Screen U Amphetamin/Meth Scrn U Benzodiazepines Scrn U Cocaine Metab Screen U Marijuana (THC) Screen Coccidioides IgM Ab SARS-CoV-2 Ag (Rapid) Negative ABG Interpretation ABG results: 09/08/24 22:55 ABG pH 7.40 ABG pCO2 42 ABG pO2 75 L ABG HCO3 26 ABG O2 Saturation 95 ABG Base Excess 1 Quality Measures Quality Measures sepsis Current suspected stage: ruled out Possible source: pulmonary Blood cultures ordered: yes Antibiotic ordered: Yes Advance care planning discussed with:: patient Assessment & Plan Assessment Current Active Medications: Generic Name Dose Route Start Last Admin Trade Name Freq PRN Reason Stop Dose Admin Acetaminophen 650 mg 09/08/24 22:46 Acetaminophen 325 Mg Tablet PO 10/08/24 22:45 Q6H PRN Fever >101.5 Albuterol/Ipratropium 3 ml 09/08/24 23:01 Albuterol/Ipratropium (Duoneb) Rt Sanjana 3 Ml Nebu INH 10/08/24 23:00 Q2HR PRN SHORTNESS OF BREATH OR WHEEZE Aspirin 81 mg 09/09/24 09:00 09/09/24 09:27 Aspirin Ec 81 Mg Tabec PO 10/09/24 08:59 81 mg QDAY EDWIN Administration Azithromycin 500 mg 09/09/24 21:00 Azithromycin 250 Mg Tablet PO 09/16/24 20:59 QPM EDWIN Benzonatate 100 mg 09/09/24 00:01 Benzonatate 100 Mg Capsule PO 10/09/24 00:14 TID PRN Cough Protocol Dextrose 25 ml 09/08/24 22:42 Dextrose 50%-Water Inj 50 Ml Syringe IV 10/08/24 22:41 Q15MIN PRN BG 50-70 responsive npo pt Dextrose 50 ml 09/08/24 22:42 Dextrose 50%-Water Inj 50 Ml Syringe IV 10/08/24 22:41 Q15MIN PRN BG <50 OR BG <70 & pt unresponsive Enoxaparin Sodium 40 mg 09/09/24 09:00 09/09/24 09:27 Enoxaparin Sod Inj 40 Mg/0.4 Ml Syringe SC 09/23/24 08:59 40 mg QDAY EDWIN Administration Glucagon 1 mg 09/08/24 22:42 Glucagon Inj 1 Mg Vial IM Q15MIN PRN BG <70, and no IV access Ceftriaxone Sodium/Dextrose 50 mls @ 100 mls/hr 09/09/24 21:00 Rocephin/D5w 1gm Iv Premix IV 09/16/24 20:59 QDAY@2100 EDWIN Insulin Human Regular 0 unit 09/09/24 07:30 09/09/24 11:45 Insulin Hum Regular 1 Unit/0.01 Ml (Per Unit) SC 10/09/24 07:29 3 unit ACHS EDWIN Administration Protocol Oseltamivir Phosphate 75 mg 09/08/24 22:45 09/09/24 09:27 Oseltamivir 75 Mg Capsule PO 09/15/24 22:44 75 mg BID EDWIN Administration Sennosides 1 tab 09/09/24 00:06 Senna Tablet PO 10/09/24 00:05 QDAY PRN CONSTIPATION Protocol Plan 69-year-old male with past medical history of coronary artery disease and open heart surgery in 2004 for bypass surgery, gastritis/GERD, [id number]-ynyrcoymz type 2 diabetes is presenting to the ED on 09/08 with worsening shortness of breath and cough will be admitted to the hospital for failing outpatient treatment for pneumonia, likely viral pneumonia in the setting of bilateral lung findings, and acute hypoxic respiratory failure secondary to pneumonia requiring supplemental oxygenation. #Acute Hypoxic Respiratory Failure 2/2 to #Extensive bilateral pneumonia #Influenza A positive #Fluid overload Patient has symptoms for +1week with SOB and coughing Failed outpatient treatment with oral abx and steroid injection? Presenting with hypoxemia requiring supplemental oxygen (FiO2 40% and 100L) with WBC <4, Febrile (102F), RR>20, mildly Tachy 96 (SIRS + source) Organ failure noted with elevated liver enzymes from baseline CXR shows severe bilateral PNA CTA of chest shows no pulmonary artery emboli and extensive bilateral pneumonia In ED, patient recieved x1 dose of Zosyn Plan: On HFNC, wean as tolerated Started Tamiflu and IV Ceftriaxone and PO Azithromycin Follow-up on blood cultures, RSV, Cocci, urine Legionella, sputum cultures Supplemental oxygen as needed Benzonatate 100mg tid prn for cough Furosemide 40mg IV x1 Duoneb PRN q2Hr #Neutropenia-resolved #Thrombocytopenia Likely 2/2 to acutely ill status vs. MDS vs. hematologic malignancy Plan: peripheral smear med rec #Electrolyte abnormalities #Hyponatremia Plan: Replete as necessary #Non-insulin dependent, type 2 diabetes mellitus Last A1c of 7.2 on 01/2024->7.9 Plan: SSI Regular insulin Bedside glucose checks #Elevated Liver Enzymes #Morbid obesity Secondary to acutely ill status vs. MASLD vs. viral hepatitis, autoimmune hepatitis, primary hepatocellular disease Patient denies drinking alcohol; is obese with BMI of 46.6 Plan: Monitor CMP #CAD s/p bypass surgery 2004 #Aneurysmal dilatation thoracic aorta (4.8cm) #Hypertension #Hyperlipidemia Patient on aspirin and a blood pressure medication; pending med rec Follows a maternal child nurse in [place]; doesn't know name of maternal child nurse Echo from 06/24 shows: Normal LV size and function. Estimated EF 50-55% Normal RV size and function Trace MR, TR, AI EKG shows sinus rhythm with several PVCs and left axis deviation and signs of pulmonary disease Plan: Repeat echo ordered Restart home medications once med rec completed Lipid panel ordered Hospital Management: Lines - PIV Diet - Carb consistent Bowel - Senna prn GI prophylaxis - not needed DVT prophylaxis - Lovenox Dispo - Treating and w/o for atypical PNA and AHRF requiring HFNC Code - Full The patient's plan was discussed with attending Dr. Jamison and senior resident Dr. Frarah Sanchez DO PGY1 Internal Medicine Attending Provider Attestation/Addendum I, Sunita Jamison DO, attest that I was physically present for the ivey portions of the service and evaluated the patient with the resident and I reviewed and discussed the case with the resident and agree with the resident's findings and plans of care as documented above Patient seen and evaluated this AM. Patient found to be flu positive and concern for possible superimposed bacterial pneumonia. Patient currently on HFNC. He reports feeling congested, but denies any productive sputum. Patient has had progressively worsening symptoms for the past week despite taking antibiotics outpatient. Extensive b/l pneumonia noted on CT. patient denies any active tobacco use. Patient has diminished breath sounds on exam in b/l lung nix. He denies any chest pain otherwise. Will cotninue with breathing treatments, steroids and abx. Abx coverage broadened to include MRSA, atypical and gram negatives.
--- NOTE | 2024-09-09 18:01 | XR_ITS ---
Examination: AP chest single view Technique: AP portable sitting chest single view Exam date and time: September 09, 2024 1816 hrs. Comparison September 06, 2024 Indications: Onset SOB today. Findings: Extensive bilateral pneumonia The film is rotated LPO Median sternotomy wires Elevation left hemidiaphragm mild to moderate Impression: Severe bilateral pneumonia
[2024-09-09 18:16] LABS: Base Excess 3 (-3-3); HCO3 28 mEq/L (20-26); Inspired Oxygen, FIO2 100 %; O2 Saturation 90 % (91-98); PCO2 44 mmHg (32.0-48.0); pH, Arterial 7.41 (7.35-7.45)
[2024-09-09 18:18] LABS: Allen Test Performed/OK; PO2 59 mmHg (83-108); Puncture Site Left Radial
[2024-09-09] MEDS: ALBUTEROL/IPRATROPIUM (Duoneb) RT SOL 3 ML NEBU 5 ML INH (18:30)
--- NOTE | 2024-09-09 18:52 | PC.CC ---
Pt Conor Joel is a 69 yr old male admitted to hospitalist services for acute hypoxic respiratory failure. [employer] CC met with pt at bedside to complete initial assessment. At time of encounter pt is noted to be alert and oriented to person, place and situation. Pt expressed understanding admission order. Pt able to confirm his demographic information. Pt is from home [address] Per pt he lives alone. Pt identifies his brother Wilfred Joel [phone] as surrogate DM. On the home pt reports being independent with ambulation and in completion of his ADLs. In ED pt on high flow O2. Per pt at home he does not require supplemental O2. Pt reports he is diabetic on oral medication for management. Pt is not on dialysis. Pt is followed by Dr. Baig for [facility]. At time of D/c pt states he will return home with family providing transport. Pt has declined information on Advance Directive. Pt reports feeling safe in his home. Pt has access to all working utilities. Pt has food items in the home.
[2024-09-09] MEDS: MethylPREDNISolone SOD SUCC 62.5 MG/ML 2ML VIAL 125 MG IVP (18:57)
--- NOTE | 2024-09-09 19:46 | PC.NURSE ---
called pharmacist for vancomycin iv- sent and on the way per pharmacist.
[2024-09-09] MEDS: AZITHROMYCIN 250 MG TABLET 500 MG PO (22:07)
--- NOTE | 2024-09-09 22:25 | PC.NURSE ---
urine specimen for legionella sent to lab.
[2024-09-09] MEDS: Vancomycin Inj 2,000 MG in SODIUM CHLORIDE 0.9% 500 ML 500 ML 150 MG IV (22:42)
[2024-09-09 23:45] LABS: Respiratory Syncytial Virus Ag Negative (Negative)
[2024-09-10] VITALS (18 sets, daily range): BP systolic 118–161; BP diastolic 77–97; PULSE 76–95; RESP 14–33; TEMP 36.2–36.5; O2SAT 90–98; BMI 46.6
[2024-09-10] MEDS: ALBUTEROL/IPRATROPIUM (Duoneb) RT SOL 3 ML NEBU INH ×6 (02:20→22:10)
[2024-09-10 04:38] LABS: Base Excess 3 (-3-3); HCO3 29 mEq/L (20-26); Inspired Oxygen, FIO2 100 %; O2 Saturation 93 % (91-98); PCO2 48 mmHg (32.0-48.0); PO2 68 mmHg (83-108); pH, Arterial 7.38 (7.35-7.45)
[2024-09-10 04:42] LABS: Allen Test Performed/OK; Puncture Site Left Radial
[2024-09-10 06:16] LABS: Basophils % (Auto) 0 % (0-2.5); Eosinophils % (Auto) 0 % (0-10); Hematocrit 44.4 % (41.0-53.0); Hemoglobin 15.5 g/dL (13.5-16.0); Immature Granulocytes % (Auto) 1 % (0-0); Immature Granulocytes Auto 0.03 Thou/mm3 (0.00-0.00); Lymphocytes # (Auto) 0.3 Thou/mm3 (1.0-4.8); Lymphocytes % (Auto) 5 % (10-50); Mean Corpuscular HGB Conc 34.9 g/dl (31.0-37.0); Mean Corpuscular Hemoglobin 31.7 pg (25.0-35.0); Mean Corpuscular Volume 91 fL (80-100); Monocytes # (Auto) 0.3 Thou/mm3 (0.0-0.8); Monocytes % (Auto) 4 % (0-12); Neutrophils % (Auto) 91 % (37-80); Nucleated Red Blood Cell % 0 /100 WBC (0); Platelet Count 103 Thou/mm3 (140-440); RDW Standard Deviation 44.5 fL (35.1-43.9); Red Blood Count 4.89 Miln/mm3 (4.50-5.90); White Blood Count 6.6 Thou/mm3 (3.8-10.6)
[2024-09-10 06:51] LABS: Alanine Aminotransferase 111 U/L (10-49); Albumin, Serum 3.5 gm/dL (3.4-4.8); Albumin/Globulin Ratio 1.5 (1.2-2.2); Alkaline Phosphatase 74 U/L (46-116); Anion Gap 7 (7-16); Aspartate Amino Transferase 162 U/L (0-34); BUN/Creatinine Ratio 20 Ratio (12-20); Bilirubin,Total 0.7 mg/dL (0.3-1.2); Blood Urea Nitrogen 20 mg/dL (9-23); Calcium 8.4 mg/dL (8.3-10.6); Calcium (Corrected) 8.8 mg/dL (8.5-10.1); Carbon Dioxide 29.3 mMol/L (20.0-31.0); Chloride 95 mMol/L (98-107); Estimated Creatinine Clearance 80.1 mL/min (>60); Globulin 2.3 gm/dL (2.3-3.5); Glucose 295 mg/dL (74-106); Osmolality,Calculated 276 (275-295); Potassium 4.4 mMol/L (3.4-5.1); Sodium 131 mMol/L (136-145); Total Protein 5.8 gm/dL (5.7-8.2); eGFR > 60 See Note
[2024-09-10] MEDS: INSULIN HUM REGULAR 1 UNIT/0.01 ML (PER UNIT) SC (07:52)
[2024-09-10 08:13] LABS: Path Review Blood Smear Sent to Pathologist
[2024-09-10] MEDS: ENOXAPARIN SOD INJ 40 MG/0.4 ML SYRINGE SC (09:52)
[2024-09-10] MEDS: ASPIRIN EC 81 MG TABEC PO (09:52)
[2024-09-10] MEDS: OSELTAMIVIR 75 MG CAPSULE PO ×2 (09:52→20:52)
--- NOTE | 2024-09-10 10:13 | XR_ITS ---
Examination: AP chest single view Technique one AP portable upright chest single view Exam date and time: September 10, 2024 11:01 AM Comparison September 09, 2024 INDICATIONS: Difficulty breathing this week, significant pneumonia chest imaging this week. FINDINGS: There remains significant bilateral pneumonia Mild prominence left ventricle Mild vascular congestion IMPRESSION: There remains significant bilateral pneumonia
[2024-09-10] MEDS: FUROSEMIDE INJ 10 MG/ML 4ML VIAL 80 MG IVP ×2 (10:20→17:00)
[2024-09-10] MEDS: VANCOMYCIN/WATER 1250 MG IVPB 250 ML 120 MG IV ×2 (10:21→22:50)
[2024-09-10 11:26] LABS: Cocci Serology, IgG Negative (Negative)
[2024-09-10] MEDS: INSULIN LISPRO (AdmeLOG) 1 UNIT/0.01 ML UNIT SC ×3 (12:05→20:52)
[2024-09-10] MEDS: INSULIN GLARGINE (Lantus) 5 UNIT/0.05 ML (PER 5 UNITS) 16 UNIT SC (12:05)
[2024-09-10 12:22] LABS: Base Excess 5 (-3-3); HCO3 30 mEq/L (20-26); Inspired Oxygen, FIO2 100 %; O2 Saturation 84 % (91-98); PCO2 46 mmHg (32.0-48.0); pH, Arterial 7.43 (7.35-7.45)
[2024-09-10 12:25] LABS: PO2 49 mmHg (83-108)
[2024-09-10 12:26] LABS: Allen Test Performed/OK; Puncture Site Right Radial
--- NOTE | 2024-09-10 12:43 | PC.NURSE ---
at 1228 Pt. was removed from bipap and put on hi-flow at 40L 100%. Pt ate one cup of jello and drank one glass of water but then quickly desaturated to 78%. Pt. was then put back on bipap at 1230 and was saturating at 94-96% MD notified.
--- NOTE | 2024-09-10 13:58 | ESPR_ITS ---
<Statement entered by Lashae Yan MD - 09/10/24 18:31> Patient was seen and examined at bedside. Patient at this time reported that his condition mildly worsening. His balance is -1800 for the past 24 hours. His respiratory rate is fluctuated between 27-39 on BiPAP 14/6, FiO2 of 100. We ordered for him ABG which showed mild improvement since the previous 1. However the repeat that showed worsening of his saturation to 85 and pO2 of 49. We consulted the ICU team and was recommended to continue with the same treatment and they will follow-up on him if he will need intubation. They recommended also to continue with the Lasix 80 mg today and DuoNebs treatment scheduled. They also recommended to cover the patient for Pseudomonas infection for that reason we will change ceftriaxone to cefepime. His AST and ALT still elevated and we will continue to monitor. Blood sugar rates 293 most likely worsened by the steroid. WBC still 6.6. - Patient's plan and care discussed with my attending, Dr. Loretta Yan MD Internal Medicine PGY-2 Documentation for date of: 09/10/24 Subjective Subjective Interval history: No acute events overnight. Patient reports feeling better in the morning at first but then worsening slightly. He denies chest pain. He denies appetite. He states that he uses CPAP overnight. Brother was at bedside and states that after his CABG he was placed in a coma/intubated to take fluid off his lungs. He said that he did well afterwards. Patient was placed on HFNC 40L 100% Fi02 to eat and drink water. He desaturated into the high 70s O2. Patient was quickly placed back on BiPap. Exam Vital Signs Temp Pulse Resp BP Pulse Ox O2 Del Method O2 Flow Rate 97.1 F 84 30 H 151/86 H 94 L High Flow Nasal Cannula 40 09/10/24 07:54 09/10/24 10:20 09/10/24 10:12 09/10/24 10:20 09/10/24 10:12 09/10/24 07:54 09/10/24 07:54 FiO2 100 09/10/24 10:12 Narrative Exam General: Resting in bed, in mild respiratory distress. HEENT: Normocephalic, atraumatic, conjunctiva clear, sclera non-icteric, EOM intact, PERRL, Heart: Regular rate and rhythm, no murmur or gallop Lungs:Rales in bibasilar posterior lungs, no wheezes Abdomen:non tender to palpation, no organomegaly or masses Extremities:trace pitting b/l edema, peripheral pulses intact Neurologic:Moves all extremities spontaneously, A&Ox3 Psychiatric: Cooperative, normal mood and affect. Objective Labs 09/13/24 05:02 09/13/24 05:02 Labs: Laboratory Results - last 24 hr 09/09/24 09/09/24 09/09/24 04:53 18:09 22:29 WBC RBC Hgb Hct MCV MCH MCHC RDW Std Deviation Plt Count Neut % (Auto) Lymph % (Auto) [place] % (Auto) Eos % (Auto) Baso % (Auto) Neut # (Auto) Lymph # (Auto) [place] # (Auto) Eos # (Auto) Baso # (Auto) Immature Gran # (Auto) Absolute Nucleated RBC Immature Gran % Nucleated RBC % Smear Path Review Puncture Site Left Radial ABG pH 7.41 ABG pCO2 44 ABG pO2 59 L* ABG HCO3 28 H ABG O2 Saturation 90 L ABG Base Excess 3 FiO2 100 Sodium Potassium Chloride Carbon Dioxide Anion Gap BUN Creatinine Estim Creat Clear Calc eGFR BUN/Creatinine Ratio Glucose Calculated Osmolality Calcium Corrected Calcium Total Bilirubin AST ALT Alkaline Phosphatase Total Protein Albumin Globulin Albumin/Globulin Ratio Coccidioides IgG Ab Negative Coccidioides IgM Ab Negative RSV Rapid Negative 09/10/24 09/10/24 09/10/24 04:18 05:41 12:16 WBC 6.6 RBC 4.89 Hgb 15.5 Hct 44.4 MCV 91 MCH 31.7 MCHC 34.9 RDW Std Deviation 44.5 H Plt Count 103 L Neut % (Auto) 91 H Lymph % (Auto) 5 L [place] % (Auto) 4 Eos % (Auto) 0 Baso % (Auto) 0 Neut # (Auto) 6.0 Lymph # (Auto) 0.3 L [place] # (Auto) 0.3 Eos # (Auto) 0.0 Baso # (Auto) 0.0 Immature Gran # (Auto) 0.03 H Absolute Nucleated RBC 0.00 Immature Gran % 1 H Nucleated RBC % 0 Smear Path Review Sent to Pathologist Puncture Site Left Radial Right Radial ABG pH 7.38 7.43 ABG pCO2 48 46 ABG pO2 68 L 49 L* ABG HCO3 29 H 30 H ABG O2 Saturation 93 84 L ABG Base Excess 3 5 H FiO2 100 100 Sodium 131 L Potassium 4.4 D Chloride 95 L Carbon Dioxide 29.3 Anion Gap 7 BUN 20 Creatinine 1.0 Estim Creat Clear Calc 80.1 eGFR > 60 BUN/Creatinine Ratio 20 Glucose 295 H D Calculated Osmolality 276 Calcium 8.4 Corrected Calcium 8.8 Total Bilirubin 0.7 AST 162 H ALT 111 H Alkaline Phosphatase 74 Total Protein 5.8 Albumin 3.5 Globulin 2.3 Albumin/Globulin Ratio 1.5 Coccidioides IgG Ab Coccidioides IgM Ab RSV Rapid ABG Interpretation ABG results: 09/08/24 09/09/24 09/10/24 22:55 18:09 04:18 ABG pH 7.40 7.41 7.38 ABG pCO2 42 44 48 ABG pO2 75 L 59 L* 68 L ABG HCO3 26 28 H 29 H ABG O2 Saturation 95 90 L 93 ABG Base Excess 1 3 3 09/10/24 12:16 ABG pH 7.43 ABG pCO2 46 ABG pO2 49 L* ABG HCO3 30 H ABG O2 Saturation 84 L ABG Base Excess 5 H Quality Measures Quality Measures sepsis Current suspected stage: ruled out Possible source: pulmonary Blood cultures ordered: yes Antibiotic ordered: Yes Advance care planning discussed with:: patient Assessment & Plan Assessment Current Active Medications: Generic Name Dose Route Start Last Admin Trade Name Freq PRN Reason Stop Dose Admin Acetaminophen 650 mg 09/08/24 22:46 Acetaminophen 325 Mg Tablet PO 10/08/24 22:45 Q6H PRN Fever >101.5 Albuterol/Ipratropium 3 ml 09/08/24 23:01 Albuterol/Ipratropium (Duoneb) Rt Sanjana 3 Ml Nebu INH 10/08/24 23:00 Q2HR PRN SHORTNESS OF BREATH OR WHEEZE Albuterol/Ipratropium 3 ml 09/10/24 03:00 09/10/24 10:12 Albuterol/Ipratropium (Duoneb) Rt Sanjana 3 Ml Nebu INH 10/10/24 02:59 3 ml Q4HRRT EDWIN Administration Aspirin 81 mg 09/09/24 09:00 09/10/24 09:52 Aspirin Ec 81 Mg Tabec PO 10/09/24 08:59 81 mg QDAY EDWIN Administration Azithromycin 500 mg 09/09/24 21:00 09/09/24 22:07 Azithromycin 250 Mg Tablet PO 09/16/24 20:59 500 mg QPM EDWIN Administration Benzonatate 100 mg 09/09/24 00:01 Benzonatate 100 Mg Capsule PO 10/09/24 00:14 TID PRN Cough Protocol Dextrose 25 ml 09/08/24 22:42 Dextrose 50%-Water Inj 50 Ml Syringe IV 10/08/24 22:41 Q15MIN PRN BG 50-70 responsive npo pt Dextrose 50 ml 09/08/24 22:42 Dextrose 50%-Water Inj 50 Ml Syringe IV 10/08/24 22:41 Q15MIN PRN BG <50 OR BG <70 & pt unresponsive Enoxaparin Sodium 40 mg 09/09/24 09:00 09/10/24 09:52 Enoxaparin Sod Inj 40 Mg/0.4 Ml Syringe SC 09/23/24 08:59 40 mg QDAY EDWIN Administration Glucagon 1 mg 09/08/24 22:42 Glucagon Inj 1 Mg Vial IM Q15MIN PRN BG <70, and no IV access Ceftriaxone Sodium/Dextrose 50 mls @ 100 mls/hr 09/09/24 21:00 09/09/24 22:14 Rocephin/D5w 1gm Iv Premix IV 09/16/24 20:59 100 mls/hr QDAY@2100 EDWIN Administration Vancomycin HCl 250 mls @ 120 mls/hr 09/10/24 10:00 09/10/24 10:21 Vancomycin/Water 1250 Mg Ivpb IV 09/17/24 09:59 120 mls/hr Q12H EDWIN Administration Insulin Glargine 16 unit 09/10/24 11:45 09/10/24 12:05 Insulin Glargine (Lantus) 5 Unit/0.05 Ml (Per 5 Units) SC 10/10/24 11:44 16 unit QDAY EDWIN Administration Insulin Human Lispro 0 unit 09/10/24 11:30 09/10/24 12:05 Insulin Lispro (Admelog) 1 Unit/0.01 Ml Unit SC 10/10/24 11:29 8 unit ACHS EDWIN Administration Protocol Methylprednisolone Sodium Succinate 60 mg 09/10/24 14:00 Methylprednisolone Sod Succ 40 Mg Vial IV 09/17/24 13:59 Q8HR [facility] Oseltamivir Phosphate 75 mg 09/08/24 22:45 09/10/24 09:52 Oseltamivir 75 Mg Capsule PO 09/15/24 22:44 75 mg BID EDWIN Administration Pharmacy Consult 1 each 09/09/24 18:30 09/10/24 10:21 Vancomycin Pharmacy To Dose 1 Each Each IV 10/09/24 18:29 Not Given QDAY EDWIN Sennosides 1 tab 09/09/24 00:06 Senna Tablet PO 10/09/24 00:05 QDAY PRN CONSTIPATION Protocol MARYJO index: 2.51-Risk of HFNC failure is high, intubation should be considered(calculated when patient was on HFNC) [place] Criteria: 1.Timing within one week 2.Chest XR shows b/l opacities 3. Respiratory failure not fully explained by cardiac failure/fluid overload Risk Factors: Sepsis and Pneumonia Oxygenation: Severe: PaO2/FiO2 <100mmHg with PEEP >5cm H20(PaO2 59 Fi02 100%= 59 Plan 69-year-old male with past medical history of coronary artery disease and open heart surgery in 2004 for bypass surgery, gastritis/GERD, [id number] type 2 diabetes is presenting to the ED on 09/08 with worsening shortness of breath and cough will be admitted to the hospital for failing outpatient treatment for pneumonia, likely viral pneumonia in the setting of bilateral lung findings, and acute hypoxic respiratory failure secondary to pneumonia requiring supplemental oxygenation. #Acute Hypoxic Respiratory Failure 2/2 to #Extensive bilateral pneumonia #Influenza A positive #Fluid overload #Severe ARDS Patient has symptoms for +1week with SOB and coughing Failed outpatient treatment with oral abx and steroid injection? Presenting with hypoxemia requiring supplemental oxygen (FiO2 40% and 100L) with WBC <4, Febrile (102F), RR>20, mildly Tachy 96 (SIRS + source) CTA of chest shows no pulmonary artery emboli and extensive bilateral pneumonia RSV(-), Cocci IgM(-) ICU consulted: Decreased Fi02 from 100% to 75%, recommended Pseudomonal coverage, continue BiPaP, monitor for now, Duoneb q4hr [facility], no ICU upgrade or intubation Plan: On BiPap, wean as tolerated, consider Intubation Started Tamiflu(09/09- IV Ceftriaxone(09/09-) D/C'd PO Azithromycin(09/09- IV Vancomycin(12/9- Cefepime(12/10- for pseudomonal coverage given hx of DMII Follow-up on blood cultures, urine Legionella, sputum cultures Benzonatate 100mg tid prn for cough Furosemide 80mg IV QD Solumedrol 60mg IV TID Duoneb EDWIN q4Hr ICU consult, appreciate recommendations #Neutropenia-resolved #Thrombocytopenia Likely 2/2 to acutely ill status vs. MDS vs. hematologic malignancy Plan: peripheral smear med rec #Electrolyte abnormalities #Hyponatremia-improving Plan: Replete as necessary #Non-insulin dependent, type 2 diabetes mellitus Last A1c of 7.2 on 01/2024->7.9 Glucose in the 300s, on high dose steroids, will start basal dose Plan: SSI Lispro insulin Bedside glucose checks Glargine 16units daily #Elevated Liver Enzymes #Morbid obesity Secondary to acutely ill status vs. MASLD vs. 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 Estimated EF 50-55% Normal RV size and function Trace MR, TR, AI EKG shows sinus rhythm with several PVCs and left axis deviation and signs of pulmonary disease Plan: Echo:Mild hypokinesis of mid anterior apical wall; EF 45-50% Restart home medications once med rec completed Lipid panel ordered Hospital Management: Lines - PIV Diet - Carb consistent Bowel - Senna prn GI prophylaxis - not needed DVT prophylaxis - Lovenox Dispo - Treating and w/o for atypical PNA and AHRF requiring BiPaP Code - Full The patient's plan was discussed with attending Dr. Burgos and senior resident Dr. Farrah Sanchez, DO PGY1 Internal Medicine Attending Provider Attestation/Addendum 69-year-old male with hypertension, hyperlipidemia, type 2 diabetes mellitus with subsequent coronary artery disease status post bypass in 2004 who presented with worsening shortness of breath on 09/08/2024 found to have acute hypoxic respiratory failure secondary to extensive multifocal pneumonia and influenza A subsequently admitted to [facility]. Plan to continue IV antibiotic therapy and Tamiflu. Currently, patient is on BiPAP with FiO2 of 85% and pressure of 15/10 and continue to monitor closely as patient is high risk for intubation. I reviewed above note and agree with findings and plans. I have also personally examined the patient with medicine team and went over assessment and plan with medical team including landscape maintenance internship and resident physician.
--- NOTE | 2024-09-10 14:29 | PD.RESCONSUL ---
HPI Data of Consult Consult date: 09/10/24 Requesting Physician: Anthony Burgos MD Admitting Provider: Crescencio Eckert MD Attending Provider: Anthony Burgos MD Primary Care Provider: Guanakito Baig MD Consult Narrative Reason for consult: Respiratory distress History of present illness: 69-year-old male with past medical history of coronary artery disease and open heart surgery in 2004 for bypass surgery, gastritis/GERD, [id number] type 2 diabetes is presenting to the ED on 09/08 with worsening shortness of breath and cough. Patient states that about 1 week ago his symptoms started with some mild coughing and shortness of breath which was worse with ambulation. Patient also states that during this time he started to develop subjective fevers but did not check his temperature. Patient went to his family care physician who gave him oral antibiotics and some form of injection, he was told that if his symptoms do not improve to present to the ED. Patient has extensive history of cardiac disease, last visited the engineering agent about a year ago and states that at that time everything was fine. Symptoms continued to progress despite outpatient antibiotics, prompting ED visit. Patient was admitted to the floors, found to be positive for influenza. Chest imaging indicated severe pneumonia. Patient placed on 40 L/min O2 at 100% FiO2 with minimal improvement in saturations. Patient given breathing treatment, placed on BiPAP, and given Lasix with moderate improvement in symptoms. Patient reported using BiPAP at home for sleep apnea. The following day, patient reported mild subjective improvement in symptoms. Patient desaturated when changed to HFNC. ICU was consulted for continued respiratory distress and desaturation when off BiPAP. Patient was examined at bedside. Patient on BiPAP, saturating over 90%, not using accessory muscles. Lung sounds had good air movement with mild wheezing throughout. Trace BLE edema. BiPAP settings adjusted with increased inspiratory pressure. Patient reported more comfortable after settings adjusted. Patient does not require upgrade to ICU at this time. cc:: cc: Anthony Burgos MD Review of Systems Review of Systems Systems Reviewed: All systems reviewed, normal except as documented Exam Vital Signs Temp Pulse Resp BP Pulse Ox O2 Del Method O2 Flow Rate 97.1 F 84 30 H 151/86 H 94 L High Flow Nasal Cannula 40 09/10/24 07:54 09/10/24 10:20 09/10/24 10:12 09/10/24 10:20 09/10/24 10:12 09/10/24 07:54 09/10/24 07:54 FiO2 100 09/10/24 10:12 Narrative Exam PE: Gen: Well-developed and well-nourished. Obese. Ill-apearing. HEENT: NCAT, PERRLA, EOMI, MMM, anicteric conjunctivae. Acanthosis nigricans. CVS: normal S1 and S2. RRR. No M/R/G. Resp: Good lung sounds, slightly diminished due to body habitus. Wheezing throughout. Abd: soft, non-tender, non-distended. MSK: Good ROM in BUE & BLE. No rash. Trace BLE edema. Neuro: CN II-XII grossly intact. Strength 5/5 in BUE & BLE. Alert and oriented x3. Psych: appropriate mood and affect. Results Labs 09/10/24 05:41 09/10/24 05:41 Labs: Short CBC 09/10/24 Range/Units 05:41 WBC 6.6 (3.8-10.6) Thou/mm3 Hgb 15.5 (13.5-16.0) g/dL Hct 44.4 (41.0-53.0) % Plt Count 103 L (140-440) Thou/mm3 BMP 09/10/24 05:41 Sodium 131 L Potassium 4.4 D Chloride 95 L Carbon Dioxide 29.3 BUN 20 Creatinine 1.0 Glucose 295 H D Calcium 8.4 Liver Function 09/10/24 Range/Units 05:41 Total Bilirubin 0.7 (0.3-1.2) mg/dL AST 162 H (0-34) U/L ALT 111 H (10-49) U/L Alkaline Phosphatase 74 (46-116) U/L Albumin 3.5 (3.4-4.8) gm/dL ABG Interpretation ABG results: 09/08/24 09/09/24 09/10/24 22:55 18:09 04:18 ABG pH 7.40 7.41 7.38 ABG pCO2 42 44 48 ABG pO2 75 L 59 L* 68 L ABG HCO3 26 28 H 29 H ABG O2 Saturation 95 90 L 93 ABG Base Excess 1 3 3 09/10/24 12:16 ABG pH 7.43 ABG pCO2 46 ABG pO2 49 L* ABG HCO3 30 H ABG O2 Saturation 84 L ABG Base Excess 5 H Quality Measures Quality Measures sepsis Current suspected stage: sepsis Possible source: pulmonary Blood cultures ordered: yes Antibiotic ordered: Yes Advance care planning discussed with:: patient and sibling Medications Home Medications and Allergies Home Medications ?Medication ?Instructions ?Recorded ?Confirmed ?Type diclofenac sodium 1 % topical gel 2 g topical QID PRN pain 09/10/24 09/10/24 History enalapril maleate 2.5 mg tablet 2.5 mg PO QDAY 09/10/24 09/10/24 History hydrocodone 7.5 mg-acetaminophen 1 tab PO Q8H PRN Breakthrough Pain 09/10/24 09/10/24 History 325 mg tablet levofloxacin 500 mg tablet 500 mg PO QDAY 09/10/24 09/10/24 History metformin 500 mg tablet 500 mg PO QDAY 09/10/24 09/10/24 History Allergies Allergy/AdvReac Type Severity Reaction Status Date / Time codeine Allergy Severe Palpitation Verified 08/11/23 16:53 s Visit Medications Acetaminophen (Acetaminophen 325 Mg Tablet) 650 mg PO Q6H PRN PRN Reason: Fever >101.5 Stop: 10/08/24 22:45 Albuterol/Ipratropium (Albuterol/Ipratropium (Duoneb) Rt Sanjana 3 Ml Nebu) 3 ml INH Q2HR PRN PRN Reason: SHORTNESS OF BREATH OR WHEEZE Stop: 10/08/24 23:00 Albuterol/Ipratropium (Albuterol/Ipratropium (Duoneb) Rt Sanjana 3 Ml Nebu) 3 ml INH Q4HRRT [facility] Stop: 10/10/24 02:59 Last Admin: 09/10/24 10:12 Dose: 3 ml Aspirin (Aspirin Ec 81 Mg Tabec) 81 mg PO QDAY [facility] Stop: 10/09/24 08:59 Last Admin: 09/10/24 09:52 Dose: 81 mg Azithromycin (Azithromycin 250 Mg Tablet) 500 mg PO QPM [facility] Stop: 09/16/24 20:59 Last Admin: 09/09/24 22:07 Dose: 500 mg Benzonatate (Benzonatate 100 Mg Capsule) 100 mg PO TID PRN; Protocol PRN Reason: Cough Stop: 10/09/24 00:14 Dextrose (Dextrose 50%-Water Inj 50 Ml Syringe) 25 ml IV Q15MIN PRN PRN Reason: BG 50-70 responsive npo pt Stop: 10/08/24 22:41 Dextrose (Dextrose 50%-Water Inj 50 Ml Syringe) 50 ml IV Q15MIN PRN PRN Reason: BG <50 OR BG <70 & pt unresponsive Stop: 10/08/24 22:41 Enoxaparin Sodium (Enoxaparin Sod Inj 40 Mg/0.4 Ml Syringe) 40 mg SC QDAY [facility] Stop: 09/23/24 08:59 Last Admin: 09/10/24 09:52 Dose: 40 mg Glucagon (Glucagon Inj 1 Mg Vial) 1 mg IM Q15MIN PRN PRN Reason: BG <70, and no IV access Ceftriaxone Sodium/Dextrose (Rocephin/D5w 1gm Iv Premix) 50 mls @ 100 mls/hr IV QDAY@2100 [facility] Stop: 09/16/24 20:59 Last Admin: 09/09/24 22:14 Dose: 100 mls/hr Vancomycin HCl (Vancomycin/Water 1250 Mg Ivpb) 250 mls @ 120 mls/hr IV Q12H [facility] Stop: 09/17/24 09:59 Last Admin: 09/10/24 10:21 Dose: 120 mls/hr Insulin Glargine (Insulin Glargine (Lantus) 5 Unit/0.05 Ml (Per 5 Units)) 16 unit SC QDAY [facility] Stop: 10/10/24 11:44 Last Admin: 09/10/24 12:05 Dose: 16 unit Insulin Human Lispro (Insulin Lispro (Admelog) 1 Unit/0.01 Ml Unit) 0 unit SC [facility]; Protocol Stop: 10/10/24 11:29 Last Admin: 09/10/24 12:05 Dose: 8 unit Methylprednisolone Sodium Succinate (Methylprednisolone Sod Succ 40 Mg Vial) 60 mg IV Q8HR [facility] Stop: 09/17/24 13:59 Last Admin: 09/10/24 14:16 Dose: 60 mg Oseltamivir Phosphate (Oseltamivir 75 Mg Capsule) 75 mg PO BID [facility] Stop: 09/15/24 22:44 Last Admin: 09/10/24 09:52 Dose: 75 mg Pharmacy Consult (Vancomycin Pharmacy To Dose 1 Each Each) 1 each IV QDAY [facility] Stop: 10/09/24 18:29 Last Admin: 09/10/24 10:21 Dose: Not Given Sennosides (Senna Tablet) 1 tab PO QDAY PRN; Protocol PRN Reason: CONSTIPATION Stop: 10/09/24 00:05 Discontinued Medications Albuterol/Ipratropium (Albuterol/Ipratropium (Duoneb) Rt Sanjana 3 Ml Nebu) 3 ml INH Q4HRRT [facility] Stop: 10/09/24 20:59 Albuterol/Ipratropium (Albuterol/Ipratropium (Duoneb) Rt Sanjana 3 Ml Nebu) 5 ml INH X1 ONE Stop: 09/09/24 18:02 Last Admin: 09/09/24 18:30 Dose: 5 ml Dexamethasone Sodium Phosphate (Dexamethasone Sod Phos Inj 10 Mg/Ml Vial) 10 mg IVP X1 ONE; Protocol Stop: 09/08/24 22:46 Last Admin: 09/09/24 02:17 Dose: 10 mg Furosemide (Furosemide Inj 10 Mg/Ml 4ml Vial) 40 mg IVP X1 ONE Stop: 09/09/24 11:40 Last Admin: 09/09/24 12:06 Dose: 40 mg Furosemide (Furosemide Inj 10 Mg/Ml 4ml Vial) 40 mg IVP X1 ONE Stop: 09/09/24 18:15 Last Admin: 09/09/24 18:20 Dose: 40 mg Furosemide (Furosemide Inj 10 Mg/Ml 4ml Vial) 80 mg IVP QDAY [facility] Stop: 10/10/24 10:14 Last Admin: 09/10/24 10:20 Dose: 80 mg Furosemide (Furosemide Inj 10 Mg/Ml 4ml Vial) 80 mg IVP X1 ONE Stop: 09/10/24 12:00 Sodium Chloride (Ns) 1,000 mls @ 999 mls/hr IV .Q1H1M ONE Stop: 09/08/24 19:59 Last Infusion: 09/08/24 22:42 Dose: Infused Piperacillin Sod/Tazobactam (Sod 3.375 gm/ Sodium Chloride) 50 mls @ 100 mls/hr IV X1 ONE Stop: 09/08/24 23:05 Last Infusion: 09/09/24 03:10 Dose: Infused Azithromycin 500 mg/ Sodium (Chloride) 250 mls @ 250 mls/hr IV QDAY@2100 [facility] Stop: 09/16/24 20:59 Ceftriaxone Sodium/Dextrose (Rocephin/D5w 1gm Iv Premix) 50 mls @ 100 mls/hr IV X1 ONE Stop: 09/08/24 23:29 Last Infusion: 09/09/24 03:10 Dose: Infused Azithromycin 500 mg/ Sodium (Chloride) 250 mls @ 250 mls/hr IV X1 ONE Stop: 09/09/24 00:29 Last Infusion: 09/09/24 04:54 Dose: Infused Sodium Chloride (Ns) 1,638 mls @ 1,638 mls/hr 30 ml/kg infuse over 60 min (1638 ml) IV .Q1H ONE Stop: 09/09/24 00:32 Last Infusion: 09/09/24 04:54 Dose: Infused Vancomycin HCl 2,000 mg/ (Sodium Chloride) 500 mls @ 150 mls/hr IV X1 ONE Stop: 09/09/24 22:19 Last Admin: 09/09/24 22:42 Dose: 10 mg/min, 150 mls/hr Insulin Human Regular (Insulin Hum Regular 1 Unit/0.01 Ml (Per Unit)) 0 unit SC [facility]; Protocol Stop: 10/09/24 07:29 Last Admin: 09/10/24 07:52 Dose: 4 unit Methylprednisolone Sodium Succinate (Methylprednisolone Sod Succ 62.5 Mg/Ml 2ml Vial) 125 mg IVP X1 ONE Stop: 09/09/24 18:36 Last Admin: 09/09/24 18:57 Dose: 125 mg Sodium Chloride (Sodium Chloride Rt 10% 15 Ml Nebu) 5 ml INH X1 ONE Stop: 09/09/24 00:00 Last Admin: 09/09/24 04:50 Dose: 5 ml Assessment & Plan Plan 69-year-old male with past medical history of coronary artery disease and open heart surgery in 2004 for bypass surgery, gastritis/GERD, [id number] type 2 diabetes is presenting to the ED on 09/08 with worsening shortness of breath and cough, ICU consulted for respiratory distress. Neuro: #No active issues Cardio: #CAD s/p CABG #Aneurysmal dilatation thoracic aorta (4.8cm) Patient has history of CAD with CABG and thoracic aorta aneurysm. Med recs pending. -Resume home meds following med rec Pulm: #AHRF Multifactorial: Influenza pneumonia plus pulmonary edema Patient presented with shortness of breath and nonproductive cough for one week, influenza positive. Patient saturating well on BiPAP. Producing good urinary output. CTA ruled out pulmonary emboli. Patient not in acute respiratory distress at time of exam. -On BiPap, wean as tolerated, consider Intubation -Started Tamiflu(09/09-) -PO Azithromycin(09/09-) -IV Vancomycin(09/09-) -Cefepime(09/10-) for pseudomonal coverage given hx of DMII -Follow-up on blood cultures, urine Legionella, sputum cultures -Benzonatate 100mg tid prn for cough -Furosemide 80mg IV QD -Solumedrol 60mg IV TID -Duoneb EDWIN q4Hr GI: #Transaminitis DDx: Acute illness vs. MASH Patient has acutely elevated liver enzymes. No RUQ tenderness. Obesity. -Monitor Renal: #Hyponatremia Mild hyponatremia, asymptomatic. Monitor Endo: #T2DM -ISS -Lantus 16 daily Heme: #Thrombocytopenia Platelets >100K, does not require transfusions. -Monitor ID: #Severe bilateral viral pneumonia -Treatment as in Pulm. Skin/MSK: #No active issues Plan of care discussed with attending Dr. Cornejo. Anthony Griffin MD PGY-1
[2024-09-10] MEDS: CEFEPIME INJ 2 GM in SODIUM CHLORIDE 0.9% (P) 50 ML IV ×2 (16:04→21:59)
[2024-09-10] MEDS: LIDOCAINE 5% 1 PATCH TOP (17:00)
[2024-09-10] MEDS: HYDROmorphone INJ 2 MG/ML VIAL 0.25 MG IVP (17:00)
[2024-09-10] MEDS: AZITHROMYCIN 250 MG TABLET 500 MG PO (20:52)
[2024-09-11] VITALS (11 sets, daily range): BP systolic 128–143; BP diastolic 78–85; PULSE 70–96; RESP 14–43; TEMP 36.1–36.6; O2SAT 93–100; BMI 46.6
[2024-09-11] MEDS: ALBUTEROL/IPRATROPIUM (Duoneb) RT SOL 3 ML NEBU INH ×5 (02:13→21:34)
[2024-09-11 04:51] LABS: Base Excess 7 (-3-3); HCO3 32 mEq/L (20-26); Inspired Oxygen, FIO2 100 %; O2 Saturation 83 % (91-98); PCO2 48 mmHg (32.0-48.0); pH, Arterial 7.43 (7.35-7.45)
[2024-09-11 04:54] LABS: Allen Test Performed/OK; PO2 48 mmHg (83-108); Puncture Site Site Not Noted
[2024-09-11 05:43] LABS: Basophils % (Auto) 0 % (0-2.5); Eosinophils % (Auto) 0 % (0-10); Hematocrit 45.6 % (41.0-53.0); Hemoglobin 15.6 g/dL (13.5-16.0); Immature Granulocytes % (Auto) 1 % (0-0); Immature Granulocytes Auto 0.05 Thou/mm3 (0.00-0.00); Lymphocytes # (Auto) 0.3 Thou/mm3 (1.0-4.8); Lymphocytes % (Auto) 3 % (10-50); Mean Corpuscular HGB Conc 34.2 g/dl (31.0-37.0); Mean Corpuscular Hemoglobin 31.1 pg (25.0-35.0); Mean Corpuscular Volume 91 fL (80-100); Monocytes # (Auto) 0.4 Thou/mm3 (0.0-0.8); Monocytes % (Auto) 5 % (0-12); Neutrophils % (Auto) 91 % (37-80); Nucleated Red Blood Cell % 0 /100 WBC (0); Platelet Count 139 Thou/mm3 (140-440); RDW Standard Deviation 44.8 fL (35.1-43.9); Red Blood Count 5.02 Miln/mm3 (4.50-5.90); White Blood Count 8.8 Thou/mm3 (3.8-10.6)
[2024-09-11] MEDS: HYDROmorphone INJ 2 MG/ML VIAL 0.25 MG IVP ×2 (05:49→11:45)
[2024-09-11] MEDS: CEFEPIME INJ 2 GM in SODIUM CHLORIDE 0.9% (P) 50 ML IV ×3 (05:50→22:10)
[2024-09-11 06:21] LABS: Alanine Aminotransferase 113 U/L (10-49); Albumin, Serum 3.5 gm/dL (3.4-4.8); Albumin/Globulin Ratio 1.4 (1.2-2.2); Alkaline Phosphatase 78 U/L (46-116); Anion Gap 6 (7-16); Aspartate Amino Transferase 102 U/L (0-34); BUN/Creatinine Ratio 27 Ratio (12-20); Bilirubin,Total 0.9 mg/dL (0.3-1.2); Blood Urea Nitrogen 27 mg/dL (9-23); Calcium 8.8 mg/dL (8.3-10.6); Calcium (Corrected) 9.2 mg/dL (8.5-10.1); Chloride 95 mMol/L (98-107); Estimated Creatinine Clearance 80.1 mL/min (>60); Globulin 2.5 gm/dL (2.3-3.5); Glucose 301 mg/dL (74-106); Osmolality,Calculated 282 (275-295); Sodium 133 mMol/L (136-145); eGFR > 60 See Note
[2024-09-11] MEDS: INSULIN LISPRO (AdmeLOG) 1 UNIT/0.01 ML UNIT SC ×4 (07:52→20:30)
--- NOTE | 2024-09-11 08:55 | PC.SS ---
Follow up note: Pt is on Bipap. On IV diuresus. Pt does not utilizes O2 at home.
[2024-09-11] MEDS: ENOXAPARIN SOD INJ 40 MG/0.4 ML SYRINGE SC (09:12)
[2024-09-11] MEDS: OSELTAMIVIR 75 MG CAPSULE PO ×2 (09:12→20:29)
[2024-09-11] MEDS: INSULIN GLARGINE (Lantus) 5 UNIT/0.05 ML (PER 5 UNITS) 25 UNIT SC (09:12)
[2024-09-11] MEDS: ASPIRIN EC 81 MG TABEC PO (09:12)
[2024-09-11 10:05] LABS: Vancomycin,Trough 12.8 mcg/mL (5.0-10.0)
[2024-09-11] MEDS: DOXYCYCLINE INJ 100 MG in SODIUM CHLORIDE 0.9% (P) 100 ML IV ×2 (11:45→20:30)
[2024-09-11] MEDS: INSULIN LISPRO (AdmeLOG) 1 UNIT/0.01 ML UNIT 4 UNIT SC ×3 (11:46→20:31)
--- NOTE | 2024-09-11 13:39 | ESPR_ITS ---
Documentation for date of: 09/11/24 Subjective Subjective Interval history: Patient was reporting back pain and received .25mg dilaudid overnight. Patient reports chapped lips, sore throat, and feeling very thirsty. He denies chest pain. He states that he feels about the same as yesterday. 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 He has yet to be treated for it. Exam Vital Signs Temp Pulse Resp BP Pulse Ox O2 Del Method O2 Flow Rate 97.6 F 92 19 133/85 H 99 BiPAP 40 09/11/24 12:00 09/11/24 12:00 09/11/24 12:00 09/11/24 12:00 09/11/24 12:00 09/11/24 12:00 09/11/24 12:00 FiO2 100 09/11/24 12:00 Narrative Exam General: Resting in bed, in mild respiratory distress. HEENT: Normocephalic, atraumatic, conjunctiva clear, sclera non-icteric, EOM intact, PERRL, Heart: Regular rate and rhythm, no murmur or gallop Lungs:Clear lung sounds, no wheezing, no accessory muscle use Abdomen:non tender to palpation, no organomegaly or masses Extremities:trace pitting b/l edema, peripheral pulses intact Neurologic:Moves all extremities spontaneously, A&Ox3 Back:pressure ulcer stage 2 of L posterior thigh Psychiatric: Cooperative, normal mood and affect. Objective Labs 09/13/24 05:02 09/13/24 05:02 Labs: Laboratory Results - last 24 hr 09/11/24 09/11/24 09/11/24 04:34 04:53 09:19 WBC 8.8 RBC 5.02 Hgb 15.6 Hct 45.6 MCV 91 MCH 31.1 MCHC 34.2 RDW Std Deviation 44.8 H Plt Count 139 L D Neut % (Auto) 91 H Lymph % (Auto) 3 L [place] % (Auto) 5 Eos % (Auto) 0 Baso % (Auto) 0 Neut # (Auto) 8.0 H Lymph # (Auto) 0.3 L [place] # (Auto) 0.4 Eos # (Auto) 0.0 Baso # (Auto) 0.0 Immature Gran # (Auto) 0.05 H Absolute Nucleated RBC 0.00 Immature Gran % 1 H Nucleated RBC % 0 Puncture Site Site Not Noted ABG pH 7.43 ABG pCO2 48 ABG pO2 48 L* ABG HCO3 32 H ABG O2 Saturation 83 L ABG Base Excess 7 H FiO2 100 Sodium 133 L Potassium 4.0 Chloride 95 L Carbon Dioxide 32.0 H Anion Gap 6 L BUN 27 H Creatinine 1.0 Estim Creat Clear Calc 80.1 eGFR > 60 BUN/Creatinine Ratio 27 H Glucose 301 H Calculated Osmolality 282 Calcium 8.8 Corrected Calcium 9.2 Total Bilirubin 0.9 AST 102 H ALT 113 H Alkaline Phosphatase 78 Total Protein 6.0 Albumin 3.5 Globulin 2.5 Albumin/Globulin Ratio 1.4 Vancomycin Trough 12.8 H ABG Interpretation ABG results: 09/08/24 09/09/24 09/10/24 22:55 18:09 04:18 ABG pH 7.40 7.41 7.38 ABG pCO2 42 44 48 ABG pO2 75 L 59 L* 68 L ABG HCO3 26 28 H 29 H ABG O2 Saturation 95 90 L 93 ABG Base Excess 1 3 3 09/10/24 09/11/24 12:16 04:34 ABG pH 7.43 7.43 ABG pCO2 46 48 ABG pO2 49 L* 48 L* ABG HCO3 30 H 32 H ABG O2 Saturation 84 L 83 L ABG Base Excess 5 H 7 H Quality Measures Quality Measures sepsis Current suspected stage: ruled out Possible source: pulmonary Blood cultures ordered: yes Antibiotic ordered: Yes Advance care planning discussed with:: patient Assessment & Plan Assessment Current Active Medications: Generic Name Dose Route Start Last Admin Trade Name Freq PRN Reason Stop Dose Admin Acetaminophen 650 mg 09/08/24 22:46 Acetaminophen 325 Mg Tablet PO 10/08/24 22:45 Q6H PRN Fever >101.5 Albuterol/Ipratropium 3 ml 09/08/24 23:01 Albuterol/Ipratropium (Duoneb) Rt Sanjana 3 Ml Nebu INH 10/08/24 23:00 Q2HR PRN SHORTNESS OF BREATH OR WHEEZE Albuterol/Ipratropium 3 ml 09/10/24 03:00 09/11/24 11:07 Albuterol/Ipratropium (Duoneb) Rt Sanjana 3 Ml Nebu INH 10/10/24 02:59 3 ml Q4HRRT EDWIN Administration Aspirin 81 mg 09/09/24 09:00 09/11/24 09:12 Aspirin Ec 81 Mg Tabec PO 10/09/24 08:59 81 mg QDAY EDWIN Administration Azithromycin 500 mg 09/09/24 21:00 09/10/24 20:52 Azithromycin 250 Mg Tablet PO 09/16/24 20:59 500 mg QPM EDWIN Administration Benzonatate 100 mg 09/09/24 00:01 Benzonatate 100 Mg Capsule PO 10/09/24 00:14 TID PRN Cough Protocol Dextrose 25 ml 09/08/24 22:42 Dextrose 50%-Water Inj 50 Ml Syringe IV 10/08/24 22:41 Q15MIN PRN BG 50-70 responsive npo pt Dextrose 50 ml 09/08/24 22:42 Dextrose 50%-Water Inj 50 Ml Syringe IV 10/08/24 22:41 Q15MIN PRN BG <50 OR BG <70 & pt unresponsive Enoxaparin Sodium 40 mg 09/09/24 09:00 09/11/24 09:12 Enoxaparin Sod Inj 40 Mg/0.4 Ml Syringe SC 09/23/24 08:59 40 mg QDAY EDWIN Administration Glucagon 1 mg 09/08/24 22:42 Glucagon Inj 1 Mg Vial IM Q15MIN PRN BG <70, and no IV access Cefepime HCl 2 gm/ Sodium 50 mls @ 100 mls/hr 09/10/24 15:10 09/11/24 05:50 Chloride IV 09/17/24 15:09 100 mls/hr Q8HR EDWIN Administration Doxycycline Hyclate 100 mg/ 100 mls @ 100 mls/hr 09/11/24 10:45 09/11/24 11:45 Sodium Chloride IV 09/18/24 10:44 100 mls/hr BID EDWIN Administration Insulin Glargine 25 unit 09/11/24 09:00 09/11/24 09:12 Insulin Glargine (Lantus) 5 Unit/0.05 Ml (Per 5 Units) SC 10/11/24 08:59 25 unit QDAY EDWIN Administration Insulin Human Lispro 0 unit 09/10/24 11:30 09/11/24 11:46 Insulin Lispro (Admelog) 1 Unit/0.01 Ml Unit SC 10/10/24 11:29 8 unit ACHS EDWIN Administration Protocol Insulin Human Lispro 4 unit 09/11/24 11:30 09/11/24 11:46 Insulin Lispro (Admelog) 1 Unit/0.01 Ml Unit SC 10/11/24 11:29 4 unit ACHS EDWIN Administration Methylprednisolone Sodium Succinate 60 mg 09/10/24 14:00 09/11/24 05:48 Methylprednisolone Sod Succ 40 Mg Vial IV 09/17/24 13:59 60 mg Q8HR EDWIN Administration Oseltamivir Phosphate 75 mg 09/08/24 22:45 09/11/24 09:12 Oseltamivir 75 Mg Capsule PO 09/13/24 09:01 75 mg BID EDWIN Administration Sennosides 1 tab 09/09/24 00:06 Senna Tablet PO 10/09/24 00:05 QDAY PRN CONSTIPATION Protocol Plan 69-year-old male with past medical history of coronary artery disease and open heart surgery in 2004 for bypass surgery, gastritis/GERD, [id number] type 2 diabetes is presenting to the ED on 09/08 with worsening shortness of breath and cough will be admitted to the hospital for failing outpatient treatment for pneumonia, likely viral pneumonia in the setting of bilateral lung findings, and acute hypoxic respiratory failure secondary to pneumonia requiring supplemental oxygenation. #Acute Hypoxic Respiratory Failure 2/2 to #Extensive bilateral pneumonia #Influenza A positive #Fluid overload #Severe ARDS Patient has symptoms for +1week with SOB and coughing Failed outpatient treatment with oral abx and steroid injection? Presenting with hypoxemia requiring supplemental oxygen (FiO2 40% and 100L) with WBC <4, Febrile (102F), RR>20, mildly Tachy 96 (SIRS + source) CTA of chest shows no pulmonary artery emboli and extensive bilateral pneumonia RSV(-), Cocci IgM(-) ICU consulted: Decreased Fi02 from 100% to 75%, recommended Pseudomonal coverage, continue BiPaP, monitor for now, Duoneb q4hr EDWIN, no ICU upgrade or intubation Plan: On BiPap, wean as tolerated, consider Intubation Started Tamiflu(09/09- IV Ceftriaxone() D/C'd PO Azithromycin(09/09- to cover atypicals pend legionella IV Vancomycin() concern for LEWIS and MRSA nares neg. IV Doxycycline 100mg BID(09/11- will continue for MRSA coverage even though MRSA Nares has NPV of 95% Cefepime(09/10- for pseudomonal coverage given hx of DMII Benzonatate 100mg tid prn for cough Will hold off on Lasix today, dry on exam Solumedrol 60mg IV TID Duoneb EDWIN q4Hr ICU consult, appreciate recommendations #Neutropenia-resolved #Thrombocytopenia Likely 2/2 to acutely ill status vs. MDS vs. hematologic malignancy peripheral smear nl -Monitor #Electrolyte abnormalities #Hyponatremia-improving Plan: Replete as necessary #Non-insulin dependent, type 2 diabetes mellitus Last A1c of 7.2 on 01/2024->7.9 Glucose in the 300s, on high dose steroids, will start basal dose Plan: SSI Lispro insulin Bedside glucose checks Glargine 25 units daily Lispro 4 units ACHS #Elevated Liver Enzymes #Morbid obesity Secondary to acutely ill status vs. MASLD vs. viral hepatitis, autoimmune hepatitis, primary hepatocellular disease Patient denies drinking alcohol; is obese with BMI of 46.6 Plan: Monitor CMP #CAD s/p bypass surgery 2004 #Aneurysmal dilatation thoracic aorta (4.8cm) #Hypertension #Hyperlipidemia Follows a farm specialist in [place]; doesn't know name of farm specialist Echo from 06/24 shows: Normal LV size and function. Estimated EF 50-55% Normal RV size and function Trace MR, TR, AI EKG shows sinus rhythm with several PVCs and left axis deviation and signs of pulmonary disease Echo:Mild hypokinesis of mid anterior apical wall; EF 45-50% Enalapril 2.5mg PO daily home med-> will hold for concern for acute clinical deterioration, BPs below 150s Hospital Management: Lines - PIV Diet - Carb consistent Bowel - Senna prn GI prophylaxis - not needed DVT prophylaxis - Lovenox Dispo - Treating and w/o for atypical PNA and AHRF requiring BiPaP Code - Full The patient's plan was discussed with attending Dr. Burgos and senior resident Dr. Farrah Sanhcez, PGY1 Internal Medicine Attending Provider Attestation/Addendum 69-year-old male with hypertension, hyperlipidemia, type 2 diabetes mellitus with subsequent coronary artery disease status post bypass in 2004 who presented with worsening shortness of breath on 09/08/2024 found to have acute hypoxic respiratory failure secondary to extensive multifocal pneumonia and influenza A subsequently admitted to [facility]. Plan to continue IV antibiotic therapy and Tamiflu. Currently, patient is on BiPAP with FiO2 of 85% and pressure of 15/10 and continue to monitor closely as patient is high risk for intubation. I reviewed above note and agree with findings and plans. I have also personally examined the patient with medicine team and went over assessment and plan with medical team including social media intern and resident physician.
[2024-09-11] MEDS: PANTOPRAZOLE INJ 40 MG VIAL IV (13:52)
[2024-09-11] MEDS: LIDOCAINE 5% 1 PATCH TOP (16:08)
[2024-09-11] MEDS: AZITHROMYCIN 250 MG TABLET 500 MG PO (20:29)
[2024-09-11] MEDS: DICLOFENAC 1% TOP GEL 100 GM TUBE TOP (23:06)
[2024-09-12] VITALS (13 sets, daily range): BP systolic 107–147; BP diastolic 67–85; PULSE 76–107; RESP 14–35; TEMP 36–36.4; O2SAT 91–100; BMI 46.3; BMI 46.6
[2024-09-12] MEDS: ALBUTEROL/IPRATROPIUM (Duoneb) RT SOL 3 ML NEBU INH ×7 (00:14→22:58)
[2024-09-12 04:21] LABS: Allen Test Performed/OK; Base Excess 6 (-3-3); HCO3 31 mEq/L (20-26); Inspired Oxygen, FIO2 100 %; O2 Saturation 88 % (91-98); PCO2 45 mmHg (32.0-48.0); Puncture Site Right Radial; pH, Arterial 7.45 (7.35-7.45)
[2024-09-12 04:23] LABS: PO2 55 mmHg (83-108)
--- NOTE | 2024-09-12 04:26 | PC.RT ---
DR. Gonzalez made aware of abg results no changes at this time per DR. she will be comming to assess pt.
[2024-09-12 05:30] LABS: Basophils % (Auto) 0 % (0-2.5); Eosinophils % (Auto) 0 % (0-10); Hematocrit 46.8 % (41.0-53.0); Hemoglobin 16.3 g/dL (13.5-16.0); Immature Granulocytes % (Auto) 1 % (0-0); Immature Granulocytes Auto 0.09 Thou/mm3 (0.00-0.00); Lymphocytes # (Auto) 0.4 Thou/mm3 (1.0-4.8); Lymphocytes % (Auto) 3 % (10-50); Mean Corpuscular HGB Conc 34.8 g/dl (31.0-37.0); Mean Corpuscular Hemoglobin 31.3 pg (25.0-35.0); Mean Corpuscular Volume 90 fL (80-100); Monocytes # (Auto) 0.9 Thou/mm3 (0.0-0.8); Monocytes % (Auto) 6 % (0-12); Neutrophils # (Auto) 12.4 Thou/mm3 (1.8-7.7); Neutrophils % (Auto) 90 % (37-80); Nucleated Red Blood Cell % 0 /100 WBC (0); Platelet Count 115 Thou/mm3 (140-440); RDW Standard Deviation 43.8 fL (35.1-43.9); Red Blood Count 5.21 Miln/mm3 (4.50-5.90); White Blood Count 13.8 Thou/mm3 (3.8-10.6)
[2024-09-12] MEDS: CEFEPIME INJ 2 GM in SODIUM CHLORIDE 0.9% (P) 50 ML IV ×3 (05:36→22:59)
[2024-09-12 06:35] LABS: Alanine Aminotransferase 114 U/L (10-49); Albumin, Serum 3.8 gm/dL (3.4-4.8); Albumin/Globulin Ratio 1.5 (1.2-2.2); Alkaline Phosphatase 83 U/L (46-116); Anion Gap 9 (7-16); Aspartate Amino Transferase 85 U/L (0-34); BUN/Creatinine Ratio 31 Ratio (12-20); Blood Urea Nitrogen 37 mg/dL (9-23); Calcium 8.9 mg/dL (8.3-10.6); Calcium (Corrected) 9.1 mg/dL (8.5-10.1); Chloride 97 mMol/L (98-107); Creatinine (Component) 1.2 mg/dL (0.6-1.3); Estimated Creatinine Clearance 66.5 mL/min (>60); Globulin 2.5 gm/dL (2.3-3.5); Glucose 255 mg/dL (74-106); Osmolality,Calculated 284 (275-295); Potassium 4.2 mMol/L (3.4-5.1); Sodium 133 mMol/L (136-145); Total Protein 6.3 gm/dL (5.7-8.2); eGFR > 60 See Note
--- NOTE | 2024-09-12 08:03 | XR_ITS ---
Examination: AP chest single view Technique one AP portable upright chest single view Exam date and time: September 12, 2024 0821 hours Comparison September 10, 2024 INDICATIONS: SOB today. FINDINGS: Extensive bilateral lung opacity Mild enlargement cardiac contour Median sternotomy wires Moderate osteopenia IMPRESSION: Bilateral pneumonia again noted Suspicious for mild associated heart failure
[2024-09-12] MEDS: INSULIN LISPRO (AdmeLOG) 1 UNIT/0.01 ML UNIT 4 UNIT SC ×4 (08:37→21:46)
[2024-09-12] MEDS: DOXYCYCLINE INJ 100 MG in SODIUM CHLORIDE 0.9% (P) 100 ML IV ×2 (08:38→21:44)
[2024-09-12] MEDS: ASPIRIN EC 81 MG TABEC PO (08:38)
[2024-09-12] MEDS: OSELTAMIVIR 75 MG CAPSULE PO ×2 (08:38→21:45)
[2024-09-12] MEDS: INSULIN LISPRO (AdmeLOG) 1 UNIT/0.01 ML UNIT SC ×4 (08:38→21:45)
[2024-09-12] MEDS: INSULIN GLARGINE (Lantus) 5 UNIT/0.05 ML (PER 5 UNITS) 40 UNIT SC (08:39)
[2024-09-12] MEDS: PANTOPRAZOLE INJ 40 MG VIAL IV (08:39)
[2024-09-12] MEDS: ENOXAPARIN SOD INJ 40 MG/0.4 ML SYRINGE SC (08:53)
--- NOTE | 2024-09-12 11:42 | PC.SS ---
[employer] notified by wound nurse that patient has wound on buttocks region. Wound nurse informed that d/c plan is home.
[2024-09-12 12:58] LABS: Magnesium 2.8 mg/dL (1.6-2.6); Phosphorous 3.1 mg/dL (2.4-5.1)
--- NOTE | 2024-09-12 13:38 | ESPR_ITS ---
Documentation for date of: 09/12/24 Subjective Subjective Interval history: No acute events overnight. Patient reported feeling better today. He reports some back pain otherwise still tolerating BiPAP well. He states that he got better sleep tonight and previous nights. He reports feeling very thirsty and hungry. Exam Vital Signs Temp Pulse Resp BP Pulse Ox O2 Del Method O2 Flow Rate 96.9 F 90 21 H 144/72 H 93 L BiPAP 40 09/12/24 12:00 09/12/24 12:00 09/12/24 12:00 09/12/24 12:00 09/12/24 12:00 09/12/24 12:00 09/12/24 12:00 FiO2 100 09/12/24 12:00 Narrative Exam General: Resting in bed on BiPAP, no acute distress HEENT: Normocephalic, atraumatic, conjunctiva clear, sclera non-icteric, EOM intact, PERRL, Heart: Regular rate and rhythm, no murmur or gallop Lungs:Clear lung sounds, no wheezing, no accessory muscle use Abdomen:non tender to palpation, no organomegaly or masses Extremities:trace pitting b/l edema, peripheral pulses intact Neurologic:Moves all extremities spontaneously, A&Ox3 Back:pressure ulcer stage 2 of L posterior thigh Psychiatric: Cooperative, normal mood and affect. Objective Labs 09/13/24 05:02 09/13/24 05:02 Labs: Laboratory Results - last 24 hr 09/12/24 09/12/24 09/12/24 04:00 04:05 12:18 WBC 13.8 H D RBC 5.21 Hgb 16.3 H Hct 46.8 MCV 90 MCH 31.3 MCHC 34.8 RDW Std Deviation 43.8 Plt Count 115 L Neut % (Auto) 90 H Lymph % (Auto) 3 L [place] % (Auto) 6 Eos % (Auto) 0 Baso % (Auto) 0 Neut # (Auto) 12.4 H Lymph # (Auto) 0.4 L [place] # (Auto) 0.9 H Eos # (Auto) 0.0 Baso # (Auto) 0.0 Immature Gran # (Auto) 0.09 H Absolute Nucleated RBC 0.00 Immature Gran % 1 H Nucleated RBC % 0 Puncture Site Right Radial ABG pH 7.45 ABG pCO2 45 ABG pO2 55 L* ABG HCO3 31 H ABG O2 Saturation 88 L ABG Base Excess 6 H FiO2 100 Sodium 133 L Potassium 4.2 Chloride 97 L Carbon Dioxide 27.0 Anion Gap 9 BUN 37 H Creatinine 1.2 Estim Creat Clear Calc 66.5 eGFR > 60 BUN/Creatinine Ratio 31 H Glucose 255 H Calculated Osmolality 284 Calcium 8.9 Corrected Calcium 9.1 Phosphorus 3.1 Magnesium 2.8 H Total Bilirubin 1.0 AST 85 H ALT 114 H Alkaline Phosphatase 83 Total Protein 6.3 Albumin 3.8 Globulin 2.5 Albumin/Globulin Ratio 1.5 ABG Interpretation ABG results: 09/08/24 09/09/24 09/10/24 22:55 18:09 04:18 ABG pH 7.40 7.41 7.38 ABG pCO2 42 44 48 ABG pO2 75 L 59 L* 68 L ABG HCO3 26 28 H 29 H ABG O2 Saturation 95 90 L 93 ABG Base Excess 1 3 3 09/10/24 09/11/24 09/12/24 12:16 04:34 04:00 ABG pH 7.43 7.43 7.45 ABG pCO2 46 48 45 ABG pO2 49 L* 48 L* 55 L* ABG HCO3 30 H 32 H 31 H ABG O2 Saturation 84 L 83 L 88 L ABG Base Excess 5 H 7 H 6 H Quality Measures Quality Measures sepsis Current suspected stage: ruled out Possible source: pulmonary Blood cultures ordered: yes Antibiotic ordered: Yes Advance care planning discussed with:: patient Assessment & Plan Assessment Current Active Medications: Generic Name Dose Route Start Last Admin Trade Name Freq PRN Reason Stop Dose Admin Acetaminophen 650 mg 09/08/24 22:46 Acetaminophen 325 Mg Tablet PO 10/08/24 22:45 Q6H PRN Fever >101.5 Albuterol/Ipratropium 3 ml 09/08/24 23:01 Albuterol/Ipratropium (Duoneb) Rt Sanjana 3 Ml Nebu INH 10/08/24 23:00 Q2HR PRN SHORTNESS OF BREATH OR WHEEZE Albuterol/Ipratropium 3 ml 09/10/24 03:00 09/12/24 11:14 Albuterol/Ipratropium (Duoneb) Rt Sanjana 3 Ml Nebu INH 10/10/24 02:59 3 ml Q4HRRT EDWIN Administration Aspirin 81 mg 09/09/24 09:00 09/12/24 08:38 Aspirin Ec 81 Mg Tabec PO 10/09/24 08:59 81 mg QDAY EDWIN Administration Azithromycin 500 mg 09/09/24 21:00 09/11/24 20:29 Azithromycin 250 Mg Tablet PO 09/16/24 20:59 500 mg QPM EDWIN Administration Benzonatate 100 mg 09/09/24 00:01 Benzonatate 100 Mg Capsule PO 10/09/24 00:14 TID PRN Cough Protocol Dextrose 25 ml 09/08/24 22:42 Dextrose 50%-Water Inj 50 Ml Syringe IV 10/08/24 22:41 Q15MIN PRN BG 50-70 responsive npo pt Dextrose 50 ml 09/08/24 22:42 Dextrose 50%-Water Inj 50 Ml Syringe IV 10/08/24 22:41 Q15MIN PRN BG <50 OR BG <70 & pt unresponsive Diclofenac Sodium 2 gm 09/11/24 15:05 09/11/24 23:06 Diclofenac 1% Top Gel 100 Gm Tube TOP 10/11/24 17:59 2 gm Q6HR PRN Administration LOCALIZED PAIN Enoxaparin Sodium 40 mg 09/09/24 09:00 09/12/24 08:53 Enoxaparin Sod Inj 40 Mg/0.4 Ml Syringe SC 09/23/24 08:59 40 mg QDAY EDWIN Administration Glucagon 1 mg 09/08/24 22:42 Glucagon Inj 1 Mg Vial IM Q15MIN PRN BG <70, and no IV access Hydromorphone HCl 0.25 mg 09/11/24 15:56 Hydromorphone Inj 2 Mg/Ml Vial IVP 09/16/24 15:55 Q4HR PRN PAIN Cefepime HCl 2 gm/ Sodium 50 mls @ 100 mls/hr 09/10/24 15:10 09/12/24 05:36 Chloride IV 09/17/24 15:09 100 mls/hr Q8HR EDWIN Administration Doxycycline Hyclate 100 mg/ 100 mls @ 100 mls/hr 09/11/24 10:45 09/12/24 08:38 Sodium Chloride IV 09/18/24 10:44 100 mls/hr BID EDWIN Administration Insulin Glargine 40 unit 09/12/24 09:00 09/12/24 08:39 Insulin Glargine (Lantus) 5 Unit/0.05 Ml (Per 5 Units) SC 10/12/24 08:59 40 unit QDAY EDWIN Administration Insulin Human Lispro 0 unit 09/10/24 11:30 09/12/24 11:50 Insulin Lispro (Admelog) 1 Unit/0.01 Ml Unit SC 10/10/24 11:29 6 unit ACHS EDWIN Administration Protocol Insulin Human Lispro 4 unit 09/11/24 11:30 09/12/24 11:49 Insulin Lispro (Admelog) 1 Unit/0.01 Ml Unit SC 10/11/24 11:29 4 unit ACHS EDWIN Administration Methylprednisolone Sodium Succinate 60 mg 09/12/24 21:00 Methylprednisolone Sod Succ 40 Mg Vial IV 09/19/24 20:59 BID EDWIN Oseltamivir Phosphate 75 mg 09/08/24 22:45 09/12/24 08:38 Oseltamivir 75 Mg Capsule PO 09/13/24 09:01 75 mg BID EDWIN Administration Pantoprazole Sodium 40 mg 09/11/24 13:45 09/12/24 08:39 Pantoprazole Inj 40 Mg Vial IV 10/11/24 13:44 40 mg QDAY EDWIN Administration Sennosides 1 tab 09/09/24 00:06 Senna Tablet PO 10/09/24 00:05 QDAY PRN CONSTIPATION Protocol Plan 69-year-old male with past medical history of coronary artery disease and open heart surgery in 2004 for bypass surgery, gastritis/GERD, [id number] type 2 diabetes is presenting to the ED on 09/08 with worsening shortness of breath and cough will be admitted to the hospital for failing outpatient treatment for pneumonia, likely viral pneumonia in the setting of bilateral lung findings, and acute hypoxic respiratory failure secondary to pneumonia requiring supplemental oxygenation. #Acute Hypoxic Respiratory Failure 2/2 to #Extensive bilateral pneumonia #Influenza A positive #Fluid overload #Severe ARDS Patient has symptoms for +1week with SOB and coughing Failed outpatient treatment with oral abx and steroid injection? Presenting with hypoxemia requiring supplemental oxygen (FiO2 40% and 100L) with WBC <4, Febrile (102F), RR>20, mildly Tachy 96 (SIRS + source) CTA of chest shows no pulmonary artery emboli and extensive bilateral pneumonia RSV(-), Cocci IgM(-) ICU consulted: Decreased Fi02 from 100% to 75%, recommended Pseudomonal coverage, continue BiPaP, monitor for now, Duoneb q4hr EDWIN, no ICU upgrade or intubation Plan: On BiPap, wean as tolerated, consider Intubation Started Tamiflu(09/09- IV Ceftriaxone() D/C'd PO Azithromycin(09/09- to cover atypicals pend legionella IV Vancomycin() concern for LEWIS and MRSA nares neg. IV Doxycycline 100mg BID(09/11- will continue for MRSA coverage even though MRSA Nares has NPV of 95% Cefepime(09/10- for pseudomonal coverage given hx of DMII Benzonatate 100mg tid prn for cough Will hold off on Lasix today, dry on exam Solumedrol 60mg IV BID Duoneb EDWIN q4Hr ICU consult, appreciate recommendations #LEWIS #Prerenal Azotemia Cr 0.9->1.2, aggressive diuresis with low PO intake Held Lasix since 09/10. Plan: Encourage PO intake on HFNC Judicious diuresis Hold IVF due to concern for acute clinical deterioration, high O2 needs on BiPAP Avoid nephrotoxic drugs #Neutropenia-resolved #Thrombocytopenia Likely 2/2 to acutely ill status vs. MDS vs. hematologic malignancy peripheral smear nl -Monitor #Electrolyte abnormalities #Hyponatremia-improving Plan: Replete as necessary #Non-insulin dependent, type 2 diabetes mellitus Last A1c of 7.2 on 01/2024->7.9 Glucose in the 300s, on high dose steroids, will start basal dose Plan: SSI Lispro insulin Bedside glucose checks Glargine 40 units daily Lispro 4 units ACHS Will slowly taper off steroids as lungs improve #Elevated Liver Enzymes #Morbid obesity Secondary to acutely ill status vs. MASLD vs. viral hepatitis, autoimmune hepatitis, primary hepatocellular disease Patient denies drinking alcohol; is obese with BMI of 46.6 Plan: Monitor CMP #CAD s/p bypass surgery 2004 #Aneurysmal dilatation thoracic aorta (4.8cm) #Hypertension #Hyperlipidemia Follows a hand or machine paster in [place]; doesn't know name of hand or machine paster Echo from 06/24 shows: Normal LV size and function. Estimated EF 50-55% Normal RV size and function Trace MR, TR, AI EKG shows sinus rhythm with several PVCs and left axis deviation and signs of pulmonary disease Echo:Mild hypokinesis of mid anterior apical wall; EF 45-50% Enalapril 2.5mg PO daily home med-> will hold for concern for acute clinical deterioration, BPs below 150s Hospital Management: Lines - PIV Diet - Carb consistent Bowel - Senna prn GI prophylaxis - not needed DVT prophylaxis - Lovenox Dispo - Treating and w/o for atypical PNA and AHRF requiring BiPaP Code - Full The patient's plan was discussed with attending Dr. Burgos and senior resident Dr. Farrah Sanchez, DO PGY1 Internal Medicine Attending Provider Attestation/Addendum 69-year-old male with hypertension, hyperlipidemia, type 2 diabetes mellitus with subsequent coronary artery disease status post bypass in 2004 who presented with worsening shortness of breath on 09/08/2024 found to have acute hypoxic respiratory failure secondary to extensive multifocal pneumonia and influenza A subsequently admitted to [facility]. Plan to continue IV antibiotic therapy and Tamiflu. Currently, patient is on BiPAP with FiO2 of 85% and pressure of 15/10 and continue to monitor closely as patient is high risk for intubation. I reviewed above note and agree with findings and plans. I have also personally examined the patient with medicine team and went over assessment and plan with medical team including r d internship and resident physician.
[2024-09-12] MEDS: AZITHROMYCIN 250 MG TABLET 500 MG PO (21:45)
[2024-09-12] MEDS: BALSAM PERU/CASTOR OIL (Venelex) 60 GM TUBE TOP (22:09)
[2024-09-13] VITALS (26 sets, daily range): BP systolic 72–178; BP diastolic 54–136; PULSE 71–115; RESP 14–38; TEMP 36–36.5; O2SAT 67–100; BMI 46.7
[2024-09-13] MEDS: ALBUTEROL/IPRATROPIUM (Duoneb) RT SOL 3 ML NEBU INH ×6 (02:48→22:38)
--- NOTE | 2024-09-13 04:19 | PC.RT ---
RT in room to perform AM ABG, pt refused at this time 0415 09/13/24
[2024-09-13] MEDS: ALPRazoLAM 0.25 MG TABLET 0.5 MG PO (04:46)
[2024-09-13] MEDS: CEFEPIME INJ 2 GM in SODIUM CHLORIDE 0.9% (P) 50 ML IV ×3 (05:45→22:33)
[2024-09-13 05:57] LABS: Basophils % (Auto) 0 % (0-2.5); Eosinophils % (Auto) 0 % (0-10); Hematocrit 44.2 % (41.0-53.0); Hemoglobin 15.4 g/dL (13.5-16.0); Immature Granulocytes % (Auto) 1 % (0-0); Lymphocytes # (Auto) 0.3 Thou/mm3 (1.0-4.8); Lymphocytes % (Auto) 2 % (10-50); Mean Corpuscular HGB Conc 34.8 g/dl (31.0-37.0); Mean Corpuscular Hemoglobin 31.8 pg (25.0-35.0); Mean Corpuscular Volume 91 fL (80-100); Monocytes # (Auto) 0.7 Thou/mm3 (0.0-0.8); Monocytes % (Auto) 4 % (0-12); Neutrophils % (Auto) 93 % (37-80); Nucleated Red Blood Cell % 0 /100 WBC (0); Platelet Count 131 Thou/mm3 (140-440); Red Blood Count 4.84 Miln/mm3 (4.50-5.90); White Blood Count 16.1 Thou/mm3 (3.8-10.6)
[2024-09-13 06:16] LABS: Anion Gap 3 (7-16); BUN/Creatinine Ratio 30 Ratio (12-20); Blood Urea Nitrogen 33 mg/dL (9-23); Calcium 8.9 mg/dL (8.3-10.6); Carbon Dioxide 30.6 mMol/L (20.0-31.0); Chloride 98 mMol/L (98-107); Creatinine (Component) 1.1 mg/dL (0.6-1.3); Estimated Creatinine Clearance 71.4 mL/min (>60); Glucose 204 mg/dL (74-106); Osmolality,Calculated 277 (275-295); Potassium 4.6 mMol/L (3.4-5.1); Sodium 132 mMol/L (136-145); eGFR > 60 See Note
[2024-09-13] MEDS: INSULIN LISPRO (AdmeLOG) 1 UNIT/0.01 ML UNIT 4 UNIT SC ×2 (08:31→11:58)
[2024-09-13] MEDS: INSULIN LISPRO (AdmeLOG) 1 UNIT/0.01 ML UNIT SC ×2 (08:31→11:59)
[2024-09-13] MEDS: INSULIN GLARGINE (Lantus) 5 UNIT/0.05 ML (PER 5 UNITS) 40 UNIT SC (08:32)
[2024-09-13] MEDS: ASPIRIN EC 81 MG TABEC PO (08:32)
[2024-09-13] MEDS: OSELTAMIVIR 75 MG CAPSULE PO (08:32)
[2024-09-13] MEDS: ENOXAPARIN SOD INJ 40 MG/0.4 ML SYRINGE SC (08:33)
[2024-09-13] MEDS: BALSAM PERU/CASTOR OIL (Venelex) 60 GM TUBE TOP ×2 (08:33→20:41)
[2024-09-13] MEDS: DOXYCYCLINE INJ 100 MG in SODIUM CHLORIDE 0.9% (P) 100 ML IV ×2 (08:33→20:41)
[2024-09-13] MEDS: PANTOPRAZOLE INJ 40 MG VIAL IV (08:34)
--- NOTE | 2024-09-13 09:06 | PD.HHPROG ---
Documentation for date of: 09/13/24 Subjective - Hospitalist Subjective Interval history: Patient complains of dry mouth however states that his shortness of breath is improving. Continues to be on BiPAP with FiO2 100% and pressure of 15/10. Review of Systems Constitutional Comments: Unable to obtain in detail given that patient is on BiPAP however denies any fevers, chest pain, weakness or abdominal pain. Exam Vital Signs Temp Pulse Resp BP Pulse Ox O2 Del Method O2 Flow Rate 97.0 F 80 19 116/59 L 94 L BiPAP 40 09/13/24 08:00 09/13/24 08:00 09/13/24 08:00 09/13/24 08:00 09/13/24 08:00 09/13/24 08:00 09/13/24 00:00 FiO2 85 09/13/24 06:32 Narrative Physical Exam: General: Alert and oriented to name, date of and place HEENT: Normocephalic, atraumatic Cardiac: Regular rate and rhythm, no murmurs Lungs: Diminished breath sounds with no crackles or wheezing. Abdomen: Nondistended, nontender positive bowel sounds. No guarding or rebound tenderness. Neurology: Cranial nerves II to XII intact and patient able to move all 4 extremities. Skin: No rash or edema. Objective - Hospitalist Labs Diagram: 09/13/24 05:02 09/13/24 05:02 Labs: Laboratory Results - last 24 hr 09/12/24 09/13/24 12:18 05:02 WBC 16.1 H RBC 4.84 Hgb 15.4 Hct 44.2 MCV 91 MCH 31.8 MCHC 34.8 RDW Std Deviation 45.0 H Plt Count 131 L Neut % (Auto) 93 H Lymph % (Auto) 2 L [place] % (Auto) 4 Eos % (Auto) 0 Baso % (Auto) 0 Neut # (Auto) 15.0 H Lymph # (Auto) 0.3 L [place] # (Auto) 0.7 Eos # (Auto) 0.0 Baso # (Auto) 0.0 Immature Gran # (Auto) 0.10 H Absolute Nucleated RBC 0.00 Immature Gran % 1 H Nucleated RBC % 0 Sodium 132 L Potassium 4.6 Chloride 98 Carbon Dioxide 30.6 Anion Gap 3 L BUN 33 H Creatinine 1.1 Estim Creat Clear Calc 71.4 eGFR > 60 BUN/Creatinine Ratio 30 H Glucose 204 H D Calculated Osmolality 277 Calcium 8.9 Phosphorus 3.1 Magnesium 2.8 H ABG Interpretation ABG results: 09/08/24 09/09/24 09/10/24 22:55 18:09 04:18 ABG pH 7.40 7.41 7.38 ABG pCO2 42 44 48 ABG pO2 75 L 59 L* 68 L ABG HCO3 26 28 H 29 H ABG O2 Saturation 95 90 L 93 ABG Base Excess 1 3 3 09/10/24 09/11/24 09/12/24 12:16 04:34 04:00 ABG pH 7.43 7.43 7.45 ABG pCO2 46 48 45 ABG pO2 49 L* 48 L* 55 L* ABG HCO3 30 H 32 H 31 H ABG O2 Saturation 84 L 83 L 88 L ABG Base Excess 5 H 7 H 6 H Assessment & Plan Patient Synopsis 69-year-old male with hypertension, hyperlipidemia, type 2 diabetes mellitus with subsequent coronary artery disease status post bypass in 2004 who presented with worsening shortness of breath on 09/08/2024 found to have acute hypoxic respiratory failure secondary to extensive multifocal pneumonia and influenza A subsequently admitted to [facility]. Plan to continue IV antibiotic therapy and Tamiflu. 1. Acute hypoxic respiratory failure 2. Extensive bilateral multifocal pneumonia 3. Influenza A ? Patient underwent CTA with findings of extensive bilateral pneumonia however no PE ? Currently, patient is on BiPAP with FiO2 of 85% and pressure of 15/10 ? Continue IV antibiotic therapy and Tamiflu. Also plan to continue steroid therapy ? Continue to monitor closely as patient is at risk for respiratory compromise and possible intubation ? Continue to monitor closely on telemetry and appreciate critical care input 4. Type 2 diabetes mellitus ? Hemoglobin A1c of 7.9 ? Continue sliding scale insulin and lispro 4 units at bedtime 5. CAD s/p CABG ? Continue aspirin and continue holding off on Lipitor given transaminitis 6. Transaminitis ? Slightly improving ? Will continue to monitor 7. Hyperlipidemia ? Lipitor held because of transaminitis 8. Hypertension ? Held hypertensive agents as patient blood pressure is borderline 9. Thoracic aortic aneurysm ? CT noted aneurysmal dilatation of thoracic aorta 4.8 cm ? Outpatient workup Healthcare Maintenance: DVT prophylaxis: Lovenox 40 mg daily GI prophylaxis: Protonix 40 mg daily Diet: Cardiac diet Lines: PIV CODE STATUS: Full code Reason for hospitalization: Hypoxic respiratory failure secondary to extensive bilateral multifocal pneumonia and influenza A on BiPAP Time Spent with Patient Time: Total time spent is greater than 50% in coordination of care (as documented) at patient's floor/unit and/or counseling patient: Time with patient: Greater than 35 minutes Reason for Continued Stay Reason for continued stay: acute resp. failure Quality Measures Quality Measures sepsis Current suspected stage: ruled out Possible source: pulmonary Blood cultures ordered: yes Antibiotic ordered: Yes Advance care planning discussed with:: patient
--- NOTE | 2024-09-13 10:28 | PC.SS ---
Follow up note: Pt is on Bipap, unable to tolerate high flow O2.
[2024-09-13 13:13] LABS: Base Excess 6 (-3-3); HCO3 31 mEq/L (20-26); O2 Saturation 87 % (91-98); PCO2 45 mmHg (32.0-48.0); pH, Arterial 7.45 (7.35-7.45)
[2024-09-13 13:17] LABS: Inspired Oxygen, FIO2 100 %; PO2 53 mmHg (83-108)
[2024-09-13 13:18] LABS: Allen Test Performed/OK; Puncture Site Left Radial
--- NOTE | 2024-09-13 15:11 | PC.NURSE ---
Received patient from Tele after a RR at 1406. Took over care at that time
[2024-09-13] MEDS: DEXMEDETOMIDINE 200 MCG IVPB 200 MCG/50 ML BOTTLE 5.756 MCG IV (15:25)
[2024-09-13] MEDS: ETOMIDATE INJ 2 MG/ML VIAL 10 ML 40 MG IVP (16:43)
[2024-09-13] MEDS: SUCCINYLCHOLINE INJ 20 MG/ML VIAL 10 ML 200 MG IV (16:44)
--- NOTE | 2024-09-13 16:45 | XR_ITS ---
Examination: AP chest single view Technique: AP portable semiupright chest single view Exam date and time: September 13, 2024 1723 hrs. Indications: Hypoxic respiratory failure postintubation Findings: Bilateral pneumonia again noted Probable associated heart failure with enlarged cardiac contour and prominent vascular congestion Tracheal tube tip 4 cm above katalina The orogastric tube is in the stomach tip below the level of the film Impression: Significant bilateral pneumonia Mild associated heart failure Endotracheal tube tip 4 cm above katalina
--- NOTE | 2024-09-13 16:49 | ESCONSULT_ITS ---
Addendum Consultation Addendum Date of report being addended: 09/13/24 Narrative: Patient was admitted on 09/08/2024 for acute hypoxic respiratory failure secondary to extensive pneumonia and influenza A, admitted to [facility]. Today was transferred to ICU and on BiPAP with no improvement in symptoms. Subsequently I was called to ICU room 255 to intubate. ED Procedures Intubation Time out performed: Yes sedative: Etomidate Mg Given: 40 paralytic: Succinylcholine Mg Given: 200 Laryngoscope: Clara ET Tube Size: 8 ET Tube Uncuffed: No Tube Secured Depth (cm): 25 Tube Secured Location: other (gum) Tube Placement Confirmation: visualized tube passing through cords, equal breath sounds bilaterally, no breath sounds over epigastrium and confirmation by ca pnometry Patient Tolerated Procedure: well and no complications Intubation Complications: none
[2024-09-13] MEDS: PROPOFOL 1,000 MG IVPB 1,000 MG/100 ML VIAL 3.454 MG IV (17:00)
[2024-09-13] MEDS: fentaNYL 2,500 MCG/250 ML BAG 2,500 MCG/250 ML BAG IV (17:00)
[2024-09-13] MEDS: MIDAZOLAM INJ 1 MG/ML VIAL 2 ML 4 MG IV (17:08)
[2024-09-13] MEDS: ROCURONIUM INJ 10 MG/ML VIAL 10 ML 100 MG IVP (17:09)
[2024-09-13] MEDS: MIDAZOLAM/NS 100 MG IVPB 100 MG/100 ML BAG IV (17:12)
[2024-09-13 17:58] LABS: Allen Test Performed/OK; Base Excess 4 (-3-3); HCO3 34 mEq/L (20-26); Inspired Oxygen, FIO2 21 %; O2 Saturation 96 % (91-98); PCO2 76 mmHg (32.0-48.0); PO2 100 mmHg (83-108); Puncture Site Right Radial; pH, Arterial 7.26 (7.35-7.45)
--- NOTE | 2024-09-13 19:03 | XR_ITS ---
Examination: AP chest single view Technique one AP portable semiupright chest single view Exam date and time: 04/13/2024 1912 hrs. Comparison September 13, 2024 1723 hrs. Indications: Post central line placement Findings: Interval right internal jugular central line tip right atrium No pneumothorax Bilateral pneumonia again noted with probable associated heart failure Mild osteopenia The orogastric tube is in the stomach, the tip is below the level film Impression: Interval right internal jugular central line, tip right atrium, no pneumothorax
--- NOTE | 2024-09-13 19:31 | ESCONSULT_ITS ---
Documented by User: Marcela Vega 09/13/24 19:35 Addendum Consultation Addendum Date of report being addended: 09/13/24 Narrative: Patient was admitted on 09/08/2024 for acute hypoxic respiratory failure secondary to extensive pneumonia and influenza A, admitted to [facility]. Today was transferred to ICU and on BiPAP with no improvement in symptoms. Subsequently I was called to ICU room 255 to do a central line procedure. ED Procedures Central Line Placement Right IJ: Time Out Performed: Yes Patient Placed on Monitor/Pulse Ox: Yes Prep: mask, gown and gloves Central Line Prep: Povidone-Iodine 1%, Chlorhexidine scrub and sterile drapes applied Local Anesthetic: lidocaine 2% Amount of anesthesia used (mL): 5 Ultrasound Used for Placement: Yes Central Line Lumen Inserted: triple Post Procedure: sutured in place, good blood return, all ports aspirated, flushed, capped and sterile dressing applied Post Procedure X-Ray: tip of catheter in good position and no pneumothorax seen Patient Tolerated Procedure: well and no complications Complications: none Documented by User: Merly Montalvo MD 09/13/24 20:52 Addendum Consultation Addendum Narrative: Called to ICU to do a central line procedure. Indication for procedure patient hypotensive requiring pressors and central blood pressure monitoring. Patient was admitted on 09/08/2024 for acute hypoxic respiratory failure secondary to extensive pneumonia and influenza A, admitted to [facility]. Today was transferred to ICU placed on BiPAP then subsequently intubated. Currently on Levophed via peripheral line.
[2024-09-13] MEDS: PROPOFOL 1,000 MG IVPB 1,000 MG/100 ML VIAL 27.629 MG IV (20:22)
[2024-09-13] MEDS: Norepinephrine/D5W 8mg/250ml 8 MG/250 ML BAG 10.793 MG IV (21:00)
[2024-09-13] MEDS: CISATRACURIUM INJ 200 MG in SODIUM CHLORIDE 0.9% 500 ML 500 ML 17.959 MG IV (22:17)
[2024-09-13 22:24] LABS: Base Excess 4 (-3-3); HCO3 31 mEq/L (20-26); O2 Saturation 96 % (91-98); PCO2 57 mmHg (32.0-48.0); PO2 84 mmHg (83-108); pH, Arterial 7.35 (7.35-7.45)
[2024-09-13 22:28] LABS: Allen Test Performed/OK; Puncture Site Right Radial
[2024-09-13 22:29] LABS: Inspired Oxygen, FIO2 100 %
[2024-09-14] VITALS (31 sets, daily range): BP systolic 95–130; BP diastolic 61–77; PULSE 82–113; RESP 30–36; TEMP 36.2–37.2; O2SAT 91–98
[2024-09-14] MEDS: INSULIN LISPRO (AdmeLOG) 1 UNIT/0.01 ML UNIT SC ×4 (00:45→17:23)
[2024-09-14] MEDS: PROPOFOL 1,000 MG IVPB 1,000 MG/100 ML VIAL 20.722 MG IV ×2 (01:47→07:00)
[2024-09-14] MEDS: ALBUTEROL/IPRATROPIUM (Duoneb) RT SOL 3 ML NEBU INH ×5 (02:52→18:13)
[2024-09-14 04:25] LABS: Base Excess 0 (-3-3); HCO3 34 mEq/L (20-26); Inspired Oxygen, FIO2 100 %; O2 Saturation 98 % (91-98); PCO2 106 mmHg (32.0-48.0); PO2 122 mmHg (83-108)
[2024-09-14 04:27] LABS: Allen Test Performed/OK; Puncture Site Right Radial
[2024-09-14 04:28] LABS: pH, Arterial 7.11 (7.35-7.45)
--- NOTE | 2024-09-14 04:42 | PC.RT ---
ABG results reported to Dr. Cornejo. RR increased to 34 per MD.
[2024-09-14] MEDS: CEFEPIME INJ 2 GM in SODIUM CHLORIDE 0.9% (P) 50 ML IV ×3 (06:07→21:30)
[2024-09-14 06:09] LABS: Base Excess 0 (-3-3); HCO3 35 mEq/L (20-26); Inspired Oxygen, FIO2 100 %; O2 Saturation 94 % (91-98); PCO2 115 mmHg (32.0-48.0); PO2 90 mmHg (83-108)
[2024-09-14] MEDS: INSULIN LISPRO (AdmeLOG) 1 UNIT/0.01 ML UNIT 4 UNIT SC (06:09)
[2024-09-14 06:10] LABS: Allen Test Performed/OK; Puncture Site Right Radial
[2024-09-14 06:13] LABS: pH, Arterial 7.09 (7.35-7.45)
--- NOTE | 2024-09-14 06:19 | XR_ITS ---
Examination: AP chest single view Technique one AP portable semiupright chest single view Exam date and time: September 14, 2024 0631 hrs. Comparison September 12, 2024 Indications: Hypoxic respiratory failure Findings: Mild prominence left ventricle Bilateral perihilar basilar pneumonia again noted Endotracheal tube tip 3.1 cm above katalina The orogastric tube is in the stomach, the tip is below the level of the film Moderate vascular congestion Right internal jugular central line tip SVC satisfactory position Impression: Significant bilateral pneumonia again noted Mild associated heart failure
[2024-09-14 06:42] LABS: Basophils % (Auto) 0 % (0-2.5); Eosinophils # (Auto) 0.1 Thou/mm3 (0.0-0.5); Eosinophils % (Auto) 0 % (0-10); Hematocrit 48.9 % (41.0-53.0); Hemoglobin 15.6 g/dL (13.5-16.0); Immature Granulocytes % (Auto) 1 % (0-0); Lymphocytes # (Auto) 0.3 Thou/mm3 (1.0-4.8); Lymphocytes % (Auto) 1 % (10-50); Mean Corpuscular HGB Conc 31.9 g/dl (31.0-37.0); Mean Corpuscular Hemoglobin 31.8 pg (25.0-35.0); Mean Corpuscular Volume 100 fL (80-100); Monocytes # (Auto) 0.8 Thou/mm3 (0.0-0.8); Monocytes % (Auto) 4 % (0-12); Neutrophils # (Auto) 20.1 Thou/mm3 (1.8-7.7); Neutrophils % (Auto) 93 % (37-80); Nucleated Red Blood Cell % 0 /100 WBC (0); Platelet Count 142 Thou/mm3 (140-440); RDW Standard Deviation 51.4 fL (35.1-43.9); Red Blood Count 4.91 Miln/mm3 (4.50-5.90); White Blood Count 21.5 Thou/mm3 (3.8-10.6)
[2024-09-14 07:16] LABS: Anion Gap 4 (7-16); BUN/Creatinine Ratio 25 Ratio (12-20); Blood Urea Nitrogen 42 mg/dL (9-23); Calcium 8.7 mg/dL (8.3-10.6); Carbon Dioxide 31.6 mMol/L (20.0-31.0); Chloride 98 mMol/L (98-107); Creatinine (Component) 1.7 mg/dL (0.6-1.3); Estimated Creatinine Clearance 45.2 mL/min (>60); Glucose 287 mg/dL (74-106); Osmolality,Calculated 288 (275-295); Sodium 134 mMol/L (136-145); eGFR 44 See Note
[2024-09-14 08:30] LABS: Allen Test Performed/OK; Base Excess 0 (-3-3); HCO3 32 mEq/L (20-26); Inspired Oxygen, FIO2 65 %; O2 Saturation 97 % (91-98); PCO2 91 mmHg (32.0-48.0); PO2 100 mmHg (83-108); Puncture Site Left Radial
[2024-09-14 08:32] LABS: pH, Arterial 7.15 (7.35-7.45)
[2024-09-14] MEDS: PANTOPRAZOLE INJ 40 MG VIAL IV (08:49)
[2024-09-14] MEDS: CALCIUM GLUCONATE 10% INJ 1 GM/10 ML VIAL IV (08:49)
[2024-09-14] MEDS: INSULIN HUM REGULAR 1 UNIT/0.01 ML (PER UNIT) 10 UNIT IV (08:50)
[2024-09-14] MEDS: INSULIN GLARGINE (Lantus) 5 UNIT/0.05 ML (PER 5 UNITS) 40 UNIT SC (08:54)
[2024-09-14] MEDS: DEXTROSE 50%-WATER INJ 50 ML SYRINGE IV (08:54)
[2024-09-14] MEDS: ENOXAPARIN SOD INJ 40 MG/0.4 ML SYRINGE SC ×2 (08:54→21:29)
[2024-09-14] MEDS: BALSAM PERU/CASTOR OIL (Venelex) 60 GM TUBE TOP ×2 (09:02→21:27)
[2024-09-14] MEDS: DOXYCYCLINE INJ 100 MG in SODIUM CHLORIDE 0.9% (P) 100 ML IV ×2 (09:52→21:27)
[2024-09-14] MEDS: ASPIRIN 81 MG CHEW GT (09:52)
--- NOTE | 2024-09-14 10:27 | ESPR_ITS ---
Documentation for date of: 09/14/24 Subjective Subjective Interval history: This is a 69yo M who has been in the hospital for several days with severe influenza pneumonia. Yesterday evening he began to tire out and was taken to the ICU and intubated. He required manually bagging after intubation for sats in the 70s. Vent changes were made and he was given a paralytic. He was started on deep sedation and then started on NMB. On the vent PEEP was increased to 15 and FiO2 was 100% with sats >90%. He was unable to be proned overnight and therefore his problems first thing this morning. After proning was able to go down on his FiO2 from 100% to 60%. Overnight he was afebrile with a good urinary output. Critical Care Note Critical care time (min.): 95 Exam Vital Signs Temp Pulse Resp BP Pulse Ox O2 Del Method O2 Flow Rate 97.1 F 89 34 H 98/63 93 L Mechanical Ventilation 40 09/14/24 08:00 09/14/24 09:00 09/14/24 06:16 09/14/24 09:00 09/14/24 09:00 09/13/24 17:33 09/13/24 00:00 FiO2 50 09/14/24 08:35 Narrative Exam Gen- intubated, sedated, obese HEENT- NC/AT, mucosa hydrated, sclera anicteric, ETT/OGT in place, Chest- LCTAB ant and post, HRRR, Abd- obese, s/nt/bs+ Ext- min edema LE, pulses palp, no clubbing, no mottling, on NMB Vent AC VC Drips fent prop versed Physical Exam Completion Physical Exam Complete?: Yes Objective - [employer] Labs 09/14/24 05:33 09/14/24 12:20 Labs: Laboratory Results - last 24 hr 09/13/24 09/13/24 09/13/24 13:06 17:37 22:17 WBC RBC Hgb Hct MCV MCH MCHC RDW Std Deviation Plt Count Neut % (Auto) Lymph % (Auto) [place] % (Auto) Eos % (Auto) Baso % (Auto) Neut # (Auto) Lymph # (Auto) [place] # (Auto) Eos # (Auto) Baso # (Auto) Immature Gran # (Auto) Absolute Nucleated RBC Immature Gran % Nucleated RBC % Puncture Site Left Radial Right Radial Right Radial ABG pH 7.45 7.26 L D 7.35 ABG pCO2 45 76 H* D 57 H D ABG pO2 53 L* 100 D 84 ABG HCO3 31 H 34 H 31 H ABG O2 Saturation 87 L 96 96 ABG Base Excess 6 H 4 H 4 H FiO2 100 21 100 Sodium Potassium Chloride Carbon Dioxide Anion Gap BUN Creatinine Estim Creat Clear Calc eGFR BUN/Creatinine Ratio Glucose Calculated Osmolality Calcium 09/14/24 09/14/24 09/14/24 04:10 05:33 06:03 WBC 21.5 H D RBC 4.91 Hgb 15.6 Hct 48.9 MCV 100 MCH 31.8 MCHC 31.9 RDW Std Deviation 51.4 H Plt Count 142 Neut % (Auto) 93 H Lymph % (Auto) 1 L [place] % (Auto) 4 Eos % (Auto) 0 Baso % (Auto) 0 Neut # (Auto) 20.1 H Lymph # (Auto) 0.3 L [place] # (Auto) 0.8 Eos # (Auto) 0.1 Baso # (Auto) 0.0 Immature Gran # (Auto) 0.30 H Absolute Nucleated RBC 0.00 Immature Gran % 1 H Nucleated RBC % 0 Puncture Site Right Radial Right Radial ABG pH 7.11 L* D 7.09 L* ABG pCO2 106 H* D 115 H* ABG pO2 122 H D 90 D ABG HCO3 34 H 35 H ABG O2 Saturation 98 94 ABG Base Excess 0 0 FiO2 100 100 Sodium 134 L Potassium 6.0 H D Chloride 98 Carbon Dioxide 31.6 H Anion Gap 4 L BUN 42 H Creatinine 1.7 H D Estim Creat Clear Calc 45.2 L eGFR 44 L BUN/Creatinine Ratio 25 H Glucose 287 H D Calculated Osmolality 288 Calcium 8.7 09/14/24 06:23 WBC RBC Hgb Hct MCV MCH MCHC RDW Std Deviation Plt Count Neut % (Auto) Lymph % (Auto) [place] % (Auto) Eos % (Auto) Baso % (Auto) Neut # (Auto) Lymph # (Auto) [place] # (Auto) Eos # (Auto) Baso # (Auto) Immature Gran # (Auto) Absolute Nucleated RBC Immature Gran % Nucleated RBC % Puncture Site Left Radial ABG pH 7.15 L* ABG pCO2 91 H* D ABG pO2 100 ABG HCO3 32 H ABG O2 Saturation 97 ABG Base Excess 0 FiO2 65 Sodium Potassium Chloride Carbon Dioxide Anion Gap BUN Creatinine Estim Creat Clear Calc eGFR BUN/Creatinine Ratio Glucose Calculated Osmolality Calcium Assessment & Plan Additional Assessment Additional Assessment: In summary this is a 9-year-old male admitted to the ICU with acute hypoxic respiratory failure a/p [employer] Sedated CV HFrEF-echo on the eighth shows an EF of 45 to 50% -This is apparently new diagnosis and require further workup once she is more stable -Will add beta-minal and DIANA inhibitor as able Resp Acute hypoxic respiratory failure-currently intubated and on mechanical ventilation, follow-up on chest x-ray and ABG, will wean as able Influenza pneumonia-has received Tamiflu and is on supportive therapy. Cultures did not show any superimposed bacterial pneumonia at this point in time -Currently on steroids -On antibiotics for total of 7 days ARDS-low tidal volume ventilation -Maintain plateau pressures less than 30 -Permissive hypercapnia -Maintain sats above 88% -High peep low FiO2 table for oxygen titration Renal Acute kidney injury-likely due to hypotension episode overnight, monitor I's and O's and avoid nephrotoxins Hyponatremia-mild monitor Hyperkalemia-given GI cocktail and will recheck potassium this afternoon GI GI prophylaxis- PPI Nutrition- NPO for now Endo DM-glucose uncontrolled therefore will increase insulin Heme Leukocytosis- reactive v related to steroids DVT proph- lovenox 40mg q12 ID Influenza on Tamiflu Case discussed with ICU team Labs, imaging and records reviewed Approximately 95 critical care minutes required for evaluation, exam, review, intervention, discussion formulation of plan of care for this critically ill patient who is examined and discussed multiple times throughout the day and night both in person and on the phone with acute hypoxic respiratory failure and severe respiratory acidosis at high risk for further and ongoing decompensation Provider Notation Provider Notation: Although this document has been carefully reviewed, there may still be some phonetic and other typographical errors. These errors are purely grammatical due to imperfections in the software program and should not be construed in any way to compromise the substance of the patient's medical care during this visit. Thank you for the opportunity and privilege in assisting you with this patient's care and management.
--- NOTE | 2024-09-14 10:56 | ESPR_ITS ---
Documentation for date of: 09/14/24 Subjective Subjective Interval history: 69-year-old male with past medical history of coronary artery disease and open heart surgery in 2004 for bypass surgery, gastritis/GERD, [id number]-[id number] type 2 diabetes is presenting to the ED on 09/08 with worsening shortness of breath and cough. Patient states that about 1 week ago his symptoms started with some mild coughing and shortness of breath which was worse with ambulation. Patient also states that during this time he started to develop subjective fevers but did not check his temperature. Patient went to his family care physician who gave him oral antibiotics and some form of injection, he was told that if his symptoms do not improve to present to the ED. Patient has extensive history of cardiac disease, last visited the director of cath lab about a year ago and states that at that time everything was fine. Symptoms continued to progress despite outpatient antibiotics, prompting ED visit. Patient was admitted to the floors, found to be positive for influenza. Chest imaging indicated severe pneumonia. Patient placed on 40 L/min O2 at 100% FiO2 with minimal improvement in saturations. Patient given breathing treatment, placed on BiPAP, and given Lasix with moderate improvement in symptoms. Patient reported using BiPAP at home for sleep apnea. The following day, patient reported mild subjective improvement in symptoms. Patient desaturated when changed to HFNC. ICU was consulted for continued respiratory distress and desaturation when off BiPAP. Patient continued to be treated on the floors using BiPAP, Duonebs, and steroids, however developed worsening hypoxia in setting of ARDS. Patient eventually was brought to ICU and proned without significant improvement, required paralytics and intubation. After sedation, patient developed hypotension requiring pressors, which was quickly weaned off. 09/14/2024: Patient seen and examined at bedside. Patient remains sedated, intubated, paralyzed due to severe ARDS. Afebrile overnight. Patient proned, will remain for 16 hours. Blood pressure stable without pressors. ABG after proning showed improvement. Patient remains notably hyperglycemic, adjusted daily insulin. Exam Vital Signs Temp Pulse Resp BP Pulse Ox O2 Del Method O2 Flow Rate 97.1 F 82 36 H 104/75 94 L Mechanical Ventilation 40 09/14/24 08:00 09/14/24 10:25 09/14/24 10:25 09/14/24 10:25 09/14/24 10:25 09/13/24 17:33 09/13/24 00:00 FiO2 45 09/14/24 10:25 Narrative Exam PE: Gen: Well-developed and well-nourished. Obese. Sedated, paralyzed, and intubated. HEENT: NCAT, PERRLA, EOMI, MMM, anicteric conjunctivae. Acanthosis nigricans. CVS: normal S1 and S2. RRR. No M/R/G. Resp: Good lung sounds, slightly diminished due to body habitus. No wheezing or crackles auscultated. Abd: soft, non-tender, non-distended. MSK: Good ROM in BUE & BLE. No rash. Trace BLE edema. Stage II pressure ulcer sacrum and just below left buttock. Neuro: Unable to obtain. Objective Labs 09/14/24 05:33 09/14/24 05:33 Labs: Laboratory Results - last 24 hr 09/13/24 09/13/24 09/13/24 13:06 17:37 22:17 WBC RBC Hgb Hct MCV MCH MCHC RDW Std Deviation Plt Count Neut % (Auto) Lymph % (Auto) [place] % (Auto) Eos % (Auto) Baso % (Auto) Neut # (Auto) Lymph # (Auto) [place] # (Auto) Eos # (Auto) Baso # (Auto) Immature Gran # (Auto) Absolute Nucleated RBC Immature Gran % Nucleated RBC % Puncture Site Left Radial Right Radial Right Radial ABG pH 7.45 7.26 L D 7.35 ABG pCO2 45 76 H* D 57 H D ABG pO2 53 L* 100 D 84 ABG HCO3 31 H 34 H 31 H ABG O2 Saturation 87 L 96 96 ABG Base Excess 6 H 4 H 4 H FiO2 100 21 100 Sodium Potassium Chloride Carbon Dioxide Anion Gap BUN Creatinine Estim Creat Clear Calc eGFR BUN/Creatinine Ratio Glucose Calculated Osmolality Calcium 09/14/24 09/14/24 09/14/24 04:10 05:33 06:03 WBC 21.5 H D RBC 4.91 Hgb 15.6 Hct 48.9 MCV 100 MCH 31.8 MCHC 31.9 RDW Std Deviation 51.4 H Plt Count 142 Neut % (Auto) 93 H Lymph % (Auto) 1 L [place] % (Auto) 4 Eos % (Auto) 0 Baso % (Auto) 0 Neut # (Auto) 20.1 H Lymph # (Auto) 0.3 L [place] # (Auto) 0.8 Eos # (Auto) 0.1 Baso # (Auto) 0.0 Immature Gran # (Auto) 0.30 H Absolute Nucleated RBC 0.00 Immature Gran % 1 H Nucleated RBC % 0 Puncture Site Right Radial Right Radial ABG pH 7.11 L* D 7.09 L* ABG pCO2 106 H* D 115 H* ABG pO2 122 H D 90 D ABG HCO3 34 H 35 H ABG O2 Saturation 98 94 ABG Base Excess 0 0 FiO2 100 100 Sodium 134 L Potassium 6.0 H D Chloride 98 Carbon Dioxide 31.6 H Anion Gap 4 L BUN 42 H Creatinine 1.7 H D Estim Creat Clear Calc 45.2 L eGFR 44 L BUN/Creatinine Ratio 25 H Glucose 287 H D Calculated Osmolality 288 Calcium 8.7 09/14/24 06:23 WBC RBC Hgb Hct MCV MCH MCHC RDW Std Deviation Plt Count Neut % (Auto) Lymph % (Auto) [place] % (Auto) Eos % (Auto) Baso % (Auto) Neut # (Auto) Lymph # (Auto) [place] # (Auto) Eos # (Auto) Baso # (Auto) Immature Gran # (Auto) Absolute Nucleated RBC Immature Gran % Nucleated RBC % Puncture Site Left Radial ABG pH 7.15 L* ABG pCO2 91 H* D ABG pO2 100 ABG HCO3 32 H ABG O2 Saturation 97 ABG Base Excess 0 FiO2 65 Sodium Potassium Chloride Carbon Dioxide Anion Gap BUN Creatinine Estim Creat Clear Calc eGFR BUN/Creatinine Ratio Glucose Calculated Osmolality Calcium ABG Interpretation ABG results: 09/08/24 09/09/24 09/10/24 22:55 18:09 04:18 ABG pH 7.40 7.41 7.38 ABG pCO2 42 44 48 ABG pO2 75 L 59 L* 68 L ABG HCO3 26 28 H 29 H ABG O2 Saturation 95 90 L 93 ABG Base Excess 1 3 3 09/10/24 09/11/24 09/12/24 12:16 04:34 04:00 ABG pH 7.43 7.43 7.45 ABG pCO2 46 48 45 ABG pO2 49 L* 48 L* 55 L* ABG HCO3 30 H 32 H 31 H ABG O2 Saturation 84 L 83 L 88 L ABG Base Excess 5 H 7 H 6 H 09/13/24 09/13/24 09/13/24 13:06 17:37 22:17 ABG pH 7.45 7.26 L D 7.35 ABG pCO2 45 76 H* D 57 H D ABG pO2 53 L* 100 D 84 ABG HCO3 31 H 34 H 31 H ABG O2 Saturation 87 L 96 96 ABG Base Excess 6 H 4 H 4 H 09/14/24 09/14/24 09/14/24 04:10 06:03 06:23 ABG pH 7.11 L* D 7.09 L* 7.15 L* ABG pCO2 106 H* D 115 H* 91 H* D ABG pO2 122 H D 90 D 100 ABG HCO3 34 H 35 H 32 H ABG O2 Saturation 98 94 97 ABG Base Excess 0 0 0 Quality Measures Quality Measures sepsis Current suspected stage: sepsis Possible source: pulmonary Blood cultures ordered: yes Antibiotic ordered: Yes Advance care planning discussed with:: sibling Assessment & Plan Assessment Current Active Medications: Generic Name Dose Route Start Last Admin Trade Name Freq PRN Reason Stop Dose Admin Acetaminophen 650 mg 09/08/24 22:46 Acetaminophen 325 Mg Tablet PO 10/08/24 22:45 Q6H PRN Fever >101.5 Albuterol/Ipratropium 3 ml 09/08/24 23:01 Albuterol/Ipratropium (Duoneb) Rt Sanjana 3 Ml Nebu INH 10/08/24 23:00 Q2HR PRN SHORTNESS OF BREATH OR WHEEZE Albuterol/Ipratropium 3 ml 09/10/24 03:00 09/14/24 10:24 Albuterol/Ipratropium (Duoneb) Rt Sanjana 3 Ml Nebu INH 10/10/24 02:59 3 ml Q4HRRT EDWIN Administration Aspirin 81 mg 09/14/24 09:15 09/14/24 09:52 Aspirin 81 Mg Chew GT 10/14/24 09:14 81 mg QDAY EDWIN Administration Azithromycin 500 mg 09/09/24 21:00 09/13/24 20:37 Azithromycin 250 Mg Tablet PO 09/16/24 20:59 Not Given QPM EDWIN Balsam [place] Oil 0 gm 09/12/24 21:00 09/14/24 09:02 Balsam [place] Oil (Venelex) 60 Gm Tube TOP 10/12/24 20:59 1 applicatio BID EDWIN Administration Benzonatate 100 mg 09/09/24 00:01 Benzonatate 100 Mg Capsule PO 10/09/24 00:14 TID PRN Cough Protocol Dextrose 25 ml 09/08/24 22:42 Dextrose 50%-Water Inj 50 Ml Syringe IV 10/08/24 22:41 Q15MIN PRN BG 50-70 responsive npo pt Dextrose 50 ml 09/08/24 22:42 Dextrose 50%-Water Inj 50 Ml Syringe IV 10/08/24 22:41 Q15MIN PRN BG <50 OR BG <70 & pt unresponsive Diclofenac Sodium 2 gm 09/11/24 15:05 09/11/24 23:06 Diclofenac 1% Top Gel 100 Gm Tube TOP 10/11/24 17:59 2 gm Q6HR PRN Administration LOCALIZED PAIN Enoxaparin Sodium 40 mg 09/14/24 21:00 Enoxaparin Sod Inj 40 Mg/0.4 Ml Syringe SC 09/28/24 20:59 Q12HR EDWIN Glucagon 1 mg 09/08/24 22:42 Glucagon Inj 1 Mg Vial IM Q15MIN PRN BG <70, and no IV access Cefepime HCl 2 gm/ Sodium 50 mls @ 100 mls/hr 09/10/24 15:10 09/14/24 06:07 Chloride IV 09/17/24 15:09 100 mls/hr Q8HR EDWIN Administration Doxycycline Hyclate 100 mg/ 100 mls @ 100 mls/hr 09/11/24 10:45 09/14/24 09:52 Sodium Chloride IV 09/18/24 10:44 100 mls/hr BID EDWIN Administration Dexmedetomidine/Sodium Chloride 200 mcg in 50 mls @ 5.756 mls/hr 09/13/24 14:54 09/13/24 16:45 Precedex Ivpb IV 10/13/24 14:53 0 mcg/kg/hr .Q8H42M PRN 0 mls/hr Per PROTOCOL Titration Protocol 0.2 MCG/KG/HR Cisatracurium Besylate 200 mg/ 520 mls @ 17.959 mls/hr 09/13/24 19:05 09/14/24 09:30 Sodium Chloride IV 10/13/24 19:04 1.25 mcg/kg/min .Q24H PRN 22.449 mls/hr Per Protocol Titration Protocol 1 MCG/KG/MIN Norepinephrine/Dextrose 8 mg in 250 mls @ 10.793 mls/hr 09/13/24 19:12 09/13/24 22:00 Levophed In D5w 8mg/250ml IV 10/13/24 19:11 0 mcg/kg/min .[id number] PRN 0 mls/hr PER PROTOCOL Titration Protocol 0.05 MCG/KG/MIN Propofol 1,000 mg in 100 mls @ 3.454 mls/hr 09/13/24 22:11 09/14/24 07:00 Diprivan Ivpb IV 10/13/24 16:46 30 mcg/kg/min .Q24H PRN 20.722 mls/hr PER PROTOCOL Administration Protocol 5 MCG/KG/MIN Fentanyl Citrate 2,500 mcg in 250 mls @ 2.5 mls/hr 09/13/24 22:12 Sublimaze Inj 2,500 Mcg/250 Ml Bag IV 09/18/24 16:45 .Q24H PRN PER PROTOCOL Protocol 25 MCG/HR Midazolam HCl 100 mg in 100 mls @ 1 mls/hr 09/13/24 22:12 Versed Pf Inj In Ns Premix IV 09/18/24 17:06 .Q24H PRN PER PROTOCOL Protocol 1 MG/HR Insulin Glargine 46 unit 09/15/24 09:00 Insulin Glargine (Lantus) 5 Unit/0.05 Ml (Per 5 Units) SC 10/15/24 08:59 QDAY [facility] Insulin Human Lispro 0 unit 09/14/24 00:00 09/14/24 06:09 Insulin Lispro (Admelog) 1 Unit/0.01 Ml Unit SC 10/14/24 00:00 6 unit Q6HR EDWIN Administration Protocol Insulin Human Lispro 6 unit 09/14/24 12:00 Insulin Lispro (Admelog) 1 Unit/0.01 Ml Unit SC 10/14/24 11:59 Q6HR [facility] Methylprednisolone Sodium Succinate 60 mg 09/12/24 21:00 09/14/24 08:49 Methylprednisolone Sod Succ 40 Mg Vial IV 09/19/24 20:59 60 mg BID EDWIN Administration Pantoprazole Sodium 40 mg 09/11/24 13:45 09/14/24 08:49 Pantoprazole Inj 40 Mg Vial IV 10/11/24 13:44 40 mg QDAY EDWIN Administration Sennosides 1 tab 09/09/24 00:06 Senna Tablet PO 10/09/24 00:05 QDAY PRN CONSTIPATION Protocol Plan 69-year-old male with past medical history of coronary artery disease and open heart surgery in 2004 for bypass surgery, gastritis/GERD, [id number] type 2 diabetes is presenting to the ED on 09/08 with worsening shortness of breath and cough, admitted to ICU for acute hypoxic respiratory failure with ARDS. Neuro: #Sedated/intubated/paralyzed -Maintain sedation and paralytics, treat underlying ARDS Cardio: #CHF Patient does not have formally diagnosed history of CHF, but echo shows decreased systolic function with LVH, ejection fraction 45-50%. Patient has vascular congestion on chest x-rays. Patient was receiving Lasix, has net fluid loss 1.8 L during course of hospital admission. Currently appears euvolemic on exam, trace pedal edema, no crackles on lung auscultation. -Strict I's and O's -Maintain euvolemia -Lasix if needed #HTN Patient history hypertension. Patient BP has been low to normal in ICU. -Hold antihypertensive medication, may resume when BP normalized #CAD s/p CABG #Aneurysmal dilatation thoracic aorta (4.8cm) Patient has history of CAD with CABG and thoracic aorta aneurysm. Med recs pending. -Resume home aspirin -Home statin held in setting of transaminitis Pulm: #AHRF #ARDS Multifactorial: Influenza pneumonia plus pulmonary edema, possible bacterial superinfection Patient presented with shortness of breath and nonproductive cough for one week, influenza positive. Patient saturating well on BiPAP. Producing good urinary output. CTA ruled out pulmonary emboli. Patient not in acute respiratory distress at time of exam. Patient developed worsening hypoxic respiratory failure, requiring intubation, sedation, paralysis for ARDS Blood culture and MRSA screen negative ABG improved after proning: pH 7.15, pCO2 91, pO2 100 Chest x-ray shows bilateral pneumonia and vascular congestion -Ventilated titrate FiO2 to maintain sats greater than 88% -Tamiflu(09/09-09/19) -PO Azithromycin(09/09-) -Doxycycline (09/11-) -Cefepime(09/10-) for pseudomonal coverage given hx of DMII -Antibiotics for 7 days -Solumedrol 60mg IV BID -Duoneb EDWIN q4Hr GI: #Transaminitis DDx: Acute illness vs. MASH Patient has acutely elevated liver enzymes. No RUQ tenderness. Obesity. -Hold statins -Monitor Renal: #Hyponatremia Mild hyponatremia, asymptomatic. Monitor Endo: #T2DM -ISS -Lantus 46 units -Lispro 6 units every 6 hours Heme: #Leukocytosis Multifactorial: Infection plus steroids -Monitor #Thrombocytopenia Platelets >100K, does not require transfusions. -Monitor ID: #Severe bilateral viral pneumonia -Treatment as in Pulm. Skin/MSK: #Pressure ulcers Patient has stage II pressure ulcer to sacrum, and just below the left buttock -Bandages ICU Health maintenance: Mechanical ventilation: Yes Sedation: Yes Diet: None DVT ppx: Lovenox GI ppx: Protonix [place]: Yes IV lines: Yes Central line: Right IJ Arterial line: No Code status: Full code Plan of care discussed with attending Dr. Cornejo. Anthony Griffin MD PGY-1
[2024-09-14] MEDS: PROPOFOL 1,000 MG IVPB 1,000 MG/100 ML VIAL 31.083 MG IV ×4 (11:30→22:40)
[2024-09-14] MEDS: fentaNYL 2,500 MCG/250 ML BAG 2,500 MCG/250 ML BAG 12.5 MCG IV (11:30)
[2024-09-14] MEDS: INSULIN LISPRO (AdmeLOG) 1 UNIT/0.01 ML UNIT 6 UNIT SC ×2 (12:47→17:24)
[2024-09-14 12:58] LABS: Albumin, Serum 3.1 gm/dL (3.4-4.8); Anion Gap 6 (7-16); BUN/Creatinine Ratio 22 Ratio (12-20); Blood Urea Nitrogen 42 mg/dL (9-23); Calcium 8.5 mg/dL (8.3-10.6); Calcium (Corrected) 9.2 mg/dL (8.5-10.1); Carbon Dioxide 27.7 mMol/L (20.0-31.0); Chloride 100 mMol/L (98-107); Creatinine (Component) 1.9 mg/dL (0.6-1.3); Estimated Creatinine Clearance 40.4 mL/min (>60); Glucose 287 mg/dL (74-106); Osmolality,Calculated 288 (275-295); Phosphorous 7.5 mg/dL (2.4-5.1); Potassium 5.7 mMol/L (3.4-5.1); Sodium 134 mMol/L (136-145); eGFR 38 See Note
--- NOTE | 2024-09-14 14:36 | PC.DIETICIAN ---
Vital 1.2 at 20 ml/hr via OG/NG tube by pump. Advance 10 ml every 8 hrs to goal rate of 55 ml/hr x 24 hrs. If no IV fluids, water flushes of 25 ml/hr (or per MD). Provides: 1584 kcal, 99 g prot, 1070 ml free water, 1320 ml total volume.
[2024-09-14] MEDS: FUROSEMIDE INJ 10 MG/ML 4ML VIAL 80 MG IVP (16:27)
[2024-09-14] MEDS: SOD POLYSTYRENE SULFON SUSP 15 GM/60 ML BTL 30 GM NG (16:31)
[2024-09-14] MEDS: SEVELAMER CARBONATE 800 MG TABLET NG (16:31)
[2024-09-14 18:05] LABS: Albumin, Serum 3.1 gm/dL (3.4-4.8); Anion Gap 6 (7-16); BUN/Creatinine Ratio 20 Ratio (12-20); Blood Urea Nitrogen 47 mg/dL (9-23); Calcium 8.4 mg/dL (8.3-10.6); Calcium (Corrected) 9.1 mg/dL (8.5-10.1); Carbon Dioxide 28.1 mMol/L (20.0-31.0); Chloride 101 mMol/L (98-107); Creatinine (Component) 2.3 mg/dL (0.6-1.3); Estimated Creatinine Clearance 33.4 mL/min (>60); Glucose 271 mg/dL (74-106); Osmolality,Calculated 292 (275-295); Phosphorous 7.5 mg/dL (2.4-5.1); Potassium 5.8 mMol/L (3.4-5.1); Sodium 135 mMol/L (136-145); eGFR 30 See Note
[2024-09-14] MEDS: MIDAZOLAM/NS 100 MG IVPB 100 MG/100 ML BAG IV (19:30)
[2024-09-14] MEDS: AZITHROMYCIN 250 MG TABLET 500 MG PO (21:26)
[2024-09-15] VITALS (48 sets, daily range): BP systolic 73–129; BP diastolic 39–79; PULSE 74–103; RESP 36; TEMP 36.2–37.1; O2SAT 87–96
[2024-09-15] MEDS: ALBUTEROL/IPRATROPIUM (Duoneb) RT SOL 3 ML NEBU INH ×6 (00:13→22:03)
[2024-09-15] MEDS: INSULIN LISPRO (AdmeLOG) 1 UNIT/0.01 ML UNIT SC ×5 (00:44→23:20)
[2024-09-15] MEDS: INSULIN LISPRO (AdmeLOG) 1 UNIT/0.01 ML UNIT 6 UNIT SC ×5 (00:45→23:21)
[2024-09-15] MEDS: PROPOFOL 1,000 MG IVPB 1,000 MG/100 ML VIAL 31.083 MG IV ×7 (01:45→22:02)
[2024-09-15] MEDS: Norepinephrine/D5W 8mg/250ml 8 MG/250 ML BAG 10.793 MG IV (04:00)
[2024-09-15 04:55] LABS: Base Excess -1 (-3-3); HCO3 29 mEq/L (20-26); O2 Saturation 92 % (91-98); PCO2 69 mmHg (32.0-48.0); PO2 67 mmHg (83-108); pH, Arterial 7.22 (7.35-7.45)
[2024-09-15 04:56] LABS: Allen Test Performed/OK; Inspired Oxygen, FIO2 100 %; Puncture Site Right Radial
[2024-09-15] MEDS: CEFEPIME INJ 2 GM in SODIUM CHLORIDE 0.9% (P) 50 ML IV ×2 (05:29→14:07)
[2024-09-15 06:12] LABS: Basophils % (Auto) 0 % (0-2.5); Eosinophils % (Auto) 0 % (0-10); Hematocrit 47.1 % (41.0-53.0); Hemoglobin 15.2 g/dL (13.5-16.0); Immature Granulocytes % (Auto) 3 % (0-0); Immature Granulocytes Auto 0.51 Thou/mm3 (0.00-0.00); Lymphocytes # (Auto) 0.2 Thou/mm3 (1.0-4.8); Lymphocytes % (Auto) 1 % (10-50); Mean Corpuscular HGB Conc 32.3 g/dl (31.0-37.0); Mean Corpuscular Hemoglobin 31.5 pg (25.0-35.0); Mean Corpuscular Volume 98 fL (80-100); Monocytes # (Auto) 0.6 Thou/mm3 (0.0-0.8); Monocytes % (Auto) 4 % (0-12); Neutrophils # (Auto) 15.9 Thou/mm3 (1.8-7.7); Neutrophils % (Auto) 92 % (37-80); Nucleated Red Blood Cell % 0 /100 WBC (0); Platelet Count 112 Thou/mm3 (140-440); RDW Standard Deviation 50.2 fL (35.1-43.9); Red Blood Count 4.83 Miln/mm3 (4.50-5.90); White Blood Count 17.3 Thou/mm3 (3.8-10.6)
[2024-09-15 06:34] LABS: Alanine Aminotransferase 84 U/L (10-49); Albumin/Globulin Ratio 1.2 (1.2-2.2); Alkaline Phosphatase 71 U/L (46-116); Anion Gap 10 (7-16); Aspartate Amino Transferase 60 U/L (0-34); BUN/Creatinine Ratio 17 Ratio (12-20); Bilirubin,Total 0.7 mg/dL (0.3-1.2); Blood Urea Nitrogen 55 mg/dL (9-23); Calcium 8.4 mg/dL (8.3-10.6); Calcium (Corrected) 9.2 mg/dL (8.5-10.1); Carbon Dioxide 27.1 mMol/L (20.0-31.0); Chloride 100 mMol/L (98-107); Creatinine (Component) 3.2 mg/dL (0.6-1.3); Estimated Creatinine Clearance 24.5 mL/min (>60); Globulin 2.5 gm/dL (2.3-3.5); Glucose 222 mg/dL (74-106); Magnesium 3.2 mg/dL (1.6-2.6); Osmolality,Calculated 295 (275-295); Phosphorous 7.2 mg/dL (2.4-5.1); Potassium 5.6 mMol/L (3.4-5.1); Sodium 137 mMol/L (136-145); Total Protein 5.5 gm/dL (5.7-8.2); eGFR 20 See Note
[2024-09-15] MEDS: CISATRACURIUM INJ 200 MG in SODIUM CHLORIDE 0.9% 500 ML 500 ML 22.449 MG IV (08:00)
[2024-09-15] MEDS: fentaNYL 2,500 MCG/250 ML BAG 2,500 MCG/250 ML BAG 12.5 MCG IV (08:04)
[2024-09-15] MEDS: PANTOPRAZOLE INJ 40 MG VIAL IV (08:10)
[2024-09-15] MEDS: DOXYCYCLINE INJ 100 MG in SODIUM CHLORIDE 0.9% (P) 100 ML IV ×2 (08:10→20:29)
[2024-09-15] MEDS: INSULIN GLARGINE (Lantus) 5 UNIT/0.05 ML (PER 5 UNITS) 46 UNIT SC (08:11)
[2024-09-15] MEDS: ENOXAPARIN SOD INJ 40 MG/0.4 ML SYRINGE SC (08:11)
[2024-09-15] MEDS: ASPIRIN 81 MG CHEW GT (08:11)
[2024-09-15] MEDS: BALSAM PERU/CASTOR OIL (Venelex) 60 GM TUBE TOP ×2 (08:12→20:27)
[2024-09-15 09:12] LABS: Base Excess -3 (-3-3); HCO3 27 mEq/L (20-26); O2 Saturation 89 % (91-98); PCO2 72 mmHg (32.0-48.0); PO2 62 mmHg (83-108)
[2024-09-15 09:17] LABS: Allen Test Performed/OK; Inspired Oxygen, FIO2 70 %; Puncture Site Right Radial; pH, Arterial 7.19 (7.35-7.45)
[2024-09-15] MEDS: BUMETANIDE INJ 0.25 MG/ML VIAL 4 ML 1 MG IVP (11:56)
[2024-09-15] MEDS: SOD POLYSTYRENE SULFON SUSP 15 GM/60 ML BTL 30 GM NG (11:56)
--- NOTE | 2024-09-15 12:13 | PD.NEPHCONS ---
History of Present Illness Data of Consult Consult date: 09/15/24 Requesting Physician: Anthony Burgos MD Primary Care Provider: Guanakito Baig MD Consult Narrative Reason for consult: LEWIS History of present illness: Patient currently seen in ICU. On ventilator. Chart review done. Per resident note-Mr. Joel is a 69-year-old morbidly obese gentleman with past medical history significant for coronary artery disease s/p CABG in 2004, diabetes type 2, GERD, hypertension, dyslipidemia presented to the emergency department shortness of breath and coughing along with fevers and noted to have flu/bilateral extensive pneumonia. Initially was admitted to floor and subsequently due to hypoxic respiratory failure was transferred to ICU and intubated. In ICU- developed worsening hypoxia in setting of ARDS. Patient currently in prone ventilation, requiring paralytics and sedation. 09/15/2024: Patient currently seen in ICU. In prone ventilation. Labs reviewed. Urine output very poor despite diuretics. Creatinine getting worse. Spoke to Dr. Cornejo-if no improvement in renal function he might need renal replacement therapy in the next 1 to 2 days. cc:: cc: Anthony Burgos MD Review of Systems Review of Systems ROS Unobtainable: unobtainable due to medical condition and due to endotracheal tube Past Medical History Past Medical History NEUROLOGIC: Negative Seizures CARDIAC: Positive Cardiac Disorders and Coronary Artery Disease; Negative Congestive Heart Failure RESPIRATORY: Negative Chronic Obstructive Pulmonary Disease (COPD) or Asthma GASTROINTESTINAL: Positive Gastrointestinal Disorders, Pancreatitis and Gall Bladder Disease GENITOURINARY: Negative Renal Disease ENDOCRINE: Negative Diabetes Mellitus Type 1 or Diabetes Mellitus Type 2 HEMATOLOGIC: Negative Sickle Cell Disease PSYCHO/SOCIAL: Positive Anxiety OTHER HISTORY: Negative Blood Transfusions, Blood Transfusion Reaction or Anesthesia Reactions Surgical History SURGICAL: Positive Cardiac Surgery and Open Heart Surgery Social History SMOKING STATUS: Former smoker SUBSTANCE USE: does not use Meds Home Medications and Allergies Home Medications ?Medication ?Instructions ?Recorded ?Confirmed ?Type diclofenac sodium 1 % topical gel 2 g topical QID PRN pain 09/10/24 09/10/24 History enalapril maleate 2.5 mg tablet 2.5 mg PO QDAY 09/10/24 09/10/24 History hydrocodone 7.5 mg-acetaminophen 1 tab PO Q8H PRN Breakthrough Pain 09/10/24 09/10/24 History 325 mg tablet levofloxacin 500 mg tablet 500 mg PO QDAY 09/10/24 09/10/24 History metformin 500 mg tablet 500 mg PO QDAY 09/10/24 09/10/24 History Allergies Allergy/AdvReac Type Severity Reaction Status Date / Time codeine Allergy Severe Palpitation Verified 08/11/23 16:53 s Exam Vital Signs Temp Pulse Resp BP Pulse Ox O2 Del Method O2 Flow Rate 36.6 C 101 H 36 H 112/73 94 L Mechanical Ventilation 40 09/15/24 12:00 09/15/24 15:00 09/15/24 14:53 09/15/24 15:00 09/15/24 15:00 09/15/24 12:00 09/13/24 00:00 FiO2 100 09/15/24 14:53 Narrative Exam GENERAL APPEARANCE: Patient currently seen in ICU. On prone ventilation. CARDIOVASCULAR: Heart regular, no murmurs LUNGS/CHEST: Bilateral rhonchi ABDOMEN: Soft, nontender, nondistended. No masses. Normal bowel sounds. EXTREMITIES: 1+ edema in the lower extremities SKIN: Skin exam normal without any rashes MUSCULOSKELETAL: in bed NEUROLOGICAL : Intubated, sedated, paralyzed Results Labs 09/16/24 05:00 09/16/24 05:00 Labs: Short CBC 09/15/24 Range/Units 05:26 WBC 17.3 H (3.8-10.6) Thou/mm3 Hgb 15.2 (13.5-16.0) g/dL Hct 47.1 (41.0-53.0) % Plt Count 112 L D (140-440) Thou/mm3 BMP 09/14/24 09/15/24 17:19 05:26 Sodium 135 L 137 Potassium 5.8 H 5.6 H Chloride 101 100 Carbon Dioxide 28.1 27.1 BUN 47 H 55 H Creatinine 2.3 H 3.2 H D Glucose 271 H 222 H Calcium 8.4 8.4 Liver Function 09/14/24 09/15/24 Range/Units 17:19 05:26 Total Bilirubin 0.7 (0.3-1.2) mg/dL AST 60 H (0-34) U/L ALT 84 H (10-49) U/L Alkaline Phosphatase 71 (46-116) U/L Albumin 3.1 L 3.0 L (3.4-4.8) gm/dL ABG Interpretation ABG results: 09/08/24 09/09/24 09/10/24 22:55 18:09 04:18 ABG pH 7.40 7.41 7.38 ABG pCO2 42 44 48 ABG pO2 75 L 59 L* 68 L ABG HCO3 26 28 H 29 H ABG O2 Saturation 95 90 L 93 ABG Base Excess 1 3 3 09/10/24 09/11/24 09/12/24 12:16 04:34 04:00 ABG pH 7.43 7.43 7.45 ABG pCO2 46 48 45 ABG pO2 49 L* 48 L* 55 L* ABG HCO3 30 H 32 H 31 H ABG O2 Saturation 84 L 83 L 88 L ABG Base Excess 5 H 7 H 6 H 09/13/24 09/13/24 09/13/24 13:06 17:37 22:17 ABG pH 7.45 7.26 L D 7.35 ABG pCO2 45 76 H* D 57 H D ABG pO2 53 L* 100 D 84 ABG HCO3 31 H 34 H 31 H ABG O2 Saturation 87 L 96 96 ABG Base Excess 6 H 4 H 4 H 09/14/24 09/14/24 09/14/24 04:10 06:03 06:23 ABG pH 7.11 L* D 7.09 L* 7.15 L* ABG pCO2 106 H* D 115 H* 91 H* D ABG pO2 122 H D 90 D 100 ABG HCO3 34 H 35 H 32 H ABG O2 Saturation 98 94 97 ABG Base Excess 0 0 0 09/15/24 09/15/24 09/15/24 04:44 08:45 15:00 ABG pH 7.22 L 7.19 L* 7.18 L* ABG pCO2 69 H D 72 H* 72 H* ABG pO2 67 L D 62 L 102 D ABG HCO3 29 H 27 H 27 H ABG O2 Saturation 92 89 L 98 ABG Base Excess -1 -3 -3 Assessment & Plan Assessment and plan (1) LEWIS (acute kidney injury): Status: Acute (2) Sepsis: Status: Acute (3) Acute hypoxic respiratory failure: Status: Acute (4) Bilateral pneumonia: Status: Acute (5) Electrolyte imbalance: Status: Acute Additional Assessment & Plan Additional Plan: #LEWIS #Hyperkalemia Most likely ATN in the setting of of shock and prolonged hypotension. 09/15/24: Patient was put in the prone position due to acute hypoxic respiratory failure and ARDS. Daily urine output 0.4 L. Bumex 1 mg once and Bumex 2 mg once was given, patient continues to have poor urine output. Patient received kayexalate 30 g once. If no improvement in renal function we will plan for dialysis in the next 12 to 24 hours ?Monitor daily CMP ? Avoid nephrotoxic agents ? Maintain MAP above 65 ? Renally dose medications #Congestive heart failure//hypoxic respiratory failure-on ventilator. #CAD s/p CABG #ARDS-on ventilator #Transaminitis #[id number], sliding scale #Leukocytosis Plan of care discussed with ICU team. Thank you Dr. Cornejo for allowing me to participate in the care of Mr. Joel
--- NOTE | 2024-09-15 14:04 | PD.INTPROG ---
Documentation for date of: 09/15/24 Subjective Subjective Interval history: This is a 69yo M who has been in the hospital for several days with severe influenza pneumonia. Yesterday evening he began to tire out and was taken to the ICU and intubated. He required manually bagging after intubation for sats in the 70s. Vent changes were made and he was given a paralytic. He was started on deep sedation and then started on NMB. On the vent PEEP was increased to 15 and FiO2 was 100% with sats >90%. He was unable to be proned overnight and therefore his problems first thing this morning. After proning was able to go down on his FiO2 from 100% to 60%. Overnight he was afebrile with a good urinary output. 09/15-patient was un proned overnight and at that time his FiO2 requirements have been 45%. Once he was in the supine position his FiO2 needs went back up to 100%. He has had a decrease in his urinary output and is currently at approximately 10 cc an hour. He is afebrile. He continues on deep sedation and neuromuscular blockade Critical Care Note Critical care time (min.): 60 Exam Vital Signs Temp Pulse Resp BP Pulse Ox O2 Del Method O2 Flow Rate 98.7 F 95 36 H 113/64 94 L Mechanical Ventilation 40 09/15/24 08:00 09/15/24 11:56 09/15/24 10:00 09/15/24 11:56 09/15/24 11:15 09/15/24 08:00 09/13/24 00:00 FiO2 100 09/15/24 10:00 Narrative Exam General-intubated, sedated, on neuromuscular blockade, obese HEENT-normocephalic, atraumatic, sclera icteric, pupils reactive, oral mucosa is hydrated, ET tube and OG tube in place, some tissue injury to the bridge of his nose Chest-lungs clear to auscultation without any crackles or wheezing, heart rate regular rhythmic, no bruits murmurs, no increased work of breathing Abdomen-soft, nontender, bowel sounds present, obese Extremities-trace edema of the lower extremities, pulses palpable, no clubbing, no cyanosis, no mottling Vent AC/VC Drips Versed Fentanyl Propofol Nimbex Levophed Physical Exam Completion Physical Exam Complete?: Yes 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 Labs 09/15/24 05:26 09/15/24 05:26 Labs: Laboratory Results - last 24 hr 09/14/24 09/15/24 09/15/24 17:19 04:44 05:26 WBC 17.3 H RBC 4.83 Hgb 15.2 Hct 47.1 MCV 98 MCH 31.5 MCHC 32.3 RDW Std Deviation 50.2 H Plt Count 112 L D Neut % (Auto) 92 H Lymph % (Auto) 1 L [place] % (Auto) 4 Eos % (Auto) 0 Baso % (Auto) 0 Neut # (Auto) 15.9 H Lymph # (Auto) 0.2 L [place] # (Auto) 0.6 Eos # (Auto) 0.0 Baso # (Auto) 0.0 Immature Gran # (Auto) 0.51 H Absolute Nucleated RBC 0.00 Immature Gran % 3 H Nucleated RBC % 0 Puncture Site Right Radial ABG pH 7.22 L ABG pCO2 69 H D ABG pO2 67 L D ABG HCO3 29 H ABG O2 Saturation 92 ABG Base Excess -1 FiO2 100 Sodium 135 L 137 Potassium 5.8 H 5.6 H Chloride 101 100 Carbon Dioxide 28.1 27.1 Anion Gap 6 L 10 BUN 47 H 55 H Creatinine 2.3 H 3.2 H D Estim Creat Clear Calc 33.4 L 24.5 L eGFR 30 L 20 L BUN/Creatinine Ratio 20 17 Glucose 271 H 222 H Calculated Osmolality 292 295 Calcium 8.4 8.4 Corrected Calcium 9.1 9.2 Phosphorus 7.5 H 7.2 H Magnesium 3.2 H Total Bilirubin 0.7 AST 60 H ALT 84 H Alkaline Phosphatase 71 Total Protein 5.5 L Albumin 3.1 L 3.0 L Globulin 2.5 Albumin/Globulin Ratio 1.2 09/15/24 08:45 WBC RBC Hgb Hct MCV MCH MCHC RDW Std Deviation Plt Count Neut % (Auto) Lymph % (Auto) [place] % (Auto) Eos % (Auto) Baso % (Auto) Neut # (Auto) Lymph # (Auto) [place] # (Auto) Eos # (Auto) Baso # (Auto) Immature Gran # (Auto) Absolute Nucleated RBC Immature Gran % Nucleated RBC % Puncture Site Right Radial ABG pH 7.19 L* ABG pCO2 72 H* ABG pO2 62 L ABG HCO3 27 H ABG O2 Saturation 89 L ABG Base Excess -3 FiO2 70 Sodium Potassium Chloride Carbon Dioxide Anion Gap BUN Creatinine Estim Creat Clear Calc eGFR BUN/Creatinine Ratio Glucose Calculated Osmolality Calcium Corrected Calcium Phosphorus Magnesium Total Bilirubin AST ALT Alkaline Phosphatase Total Protein Albumin Globulin Albumin/Globulin Ratio Assessment & Plan Additional Assessment Additional Assessment: In summary this is a 9-year-old male admitted to the ICU with acute hypoxic respiratory failure a/p [employer] Sedated CV HFrEF-echo on the eighth shows an EF of 45 to 50% -This is apparently new diagnosis and require further workup once he is more stable -Will add beta-minal and DIANA inhibitor as able -Given a dose of Bumex today Resp Acute hypoxic respiratory failure-currently intubated and on mechanical ventilation, follow-up on chest x-ray and ABG, will wean as able -Respiratory acidosis noted on ABG and vent adjusted -Patient with poor respiratory mechanics and very low compliance Influenza pneumonia-has received Tamiflu and is on supportive therapy. Cultures did not show any superimposed bacterial pneumonia at this point in time -Currently on steroids -On antibiotics for total of 7 days ARDS-low tidal volume ventilation -Maintain plateau pressures less than 30 -Permissive hypercapnia -Maintain sats above 88% -High peep low FiO2 table for oxygen titration - pf ratio of 88 today Renal Acute kidney injury-likely due to hypotension episode overnight, monitor I's and O's and avoid nephrotoxins -Minimal urine today and severely oliguric -Will consult nephrology as patient may require dialysis in the near future Hyponatremia-mild monitor Hyperkalemia-given GI cocktail and will recheck potassium this afternoon -Improved from yesterday however still elevated -Give additional dose of Kayexalate today GI GI prophylaxis- PPI Nutrition- NPO for now Endo DM-glucose uncontrolled therefore will increase insulin Heme Leukocytosis- reactive v related to steroids DVT proph- lovenox 40mg q12 ID Influenza on Tamiflu Case discussed with ICU team d/w nephrology Labs, imaging and records reviewed Approximately 60 critical care minutes required for evaluation, exam, review, intervention, discussion formulation of plan of care for this critically ill patient who is examined and discussed multiple times throughout the day and night both in person and on the phone with acute hypoxic respiratory failure and severe respiratory acidosis at high risk for further and ongoing decompensation Provider Notation Provider Notation: Although this document has been carefully reviewed, there may still be some phonetic and other typographical errors. These errors are purely grammatical due to imperfections in the software program and should not be construed in any way to compromise the substance of the patient's medical care during this visit. Thank you for the opportunity and privilege in assisting you with this patient's care and management.
--- NOTE | 2024-09-15 14:33 | ESPR_ITS ---
Documentation for date of: 09/15/24 Subjective Subjective Interval history: 69-year-old male with past medical history of coronary artery disease and open heart surgery in 2004 for bypass surgery, gastritis/GERD, kjp-[id number]-avidywvyn type 2 diabetes is presenting to the ED on 09/08 with worsening shortness of breath and cough. Patient states that about 1 week ago his symptoms started with some mild coughing and shortness of breath which was worse with ambulation. Patient also states that during this time he started to develop subjective fevers but did not check his temperature. Patient went to his family care physician who gave him oral antibiotics and some form of injection, he was told that if his symptoms do not improve to present to the ED. Patient has extensive history of cardiac disease, last visited the foundry operator about a year ago and states that at that time everything was fine. Symptoms continued to progress despite outpatient antibiotics, prompting ED visit. Patient was admitted to the floors, found to be positive for influenza. Chest imaging indicated severe pneumonia. Patient placed on 40 L/min O2 at 100% FiO2 with minimal improvement in saturations. Patient given breathing treatment, placed on BiPAP, and given Lasix with moderate improvement in symptoms. Patient reported using BiPAP at home for sleep apnea. The following day, patient reported mild subjective improvement in symptoms. Patient desaturated when changed to HFNC. ICU was consulted for continued respiratory distress and desaturation when off BiPAP. Patient continued to be treated on the floors using BiPAP, Duonebs, and steroids, however developed worsening hypoxia in setting of ARDS. Patient eventually was brought to ICU and proned without significant improvement, required paralytics and intubation. After sedation, patient developed hypotension requiring pressors, which was quickly weaned off. 09/14/2024: Patient seen and examined at bedside. Patient remains sedated, intubated, paralyzed due to severe ARDS. Afebrile overnight. Patient proned, will remain for 16 hours. Blood pressure stable without pressors. ABG after proning showed improvement. Patient remains notably hyperglycemic, adjusted daily insulin. 09/15/2024: Patient seen and examined at bedside. Patient sedated, intubated paralyzed. Afebrile overnight. Patient proned 16 hours overnight, supine for over 8 hours. Patient developed slight hypotension after supination, pressors initiated, titrated off. Patient FiO2 requirements increased after supination. Patient proned again for 16 hours, with improvement in FiO2 requirements. Patient urine output remains poor despite Lasix, will try Bumex. LEWIS worsening. Nephrology consulted. Exam Vital Signs Temp Pulse Resp BP Pulse Ox O2 Del Method O2 Flow Rate 98.7 F 95 36 H 113/64 94 L Mechanical Ventilation 40 09/15/24 08:00 09/15/24 11:56 09/15/24 10:00 09/15/24 11:56 09/15/24 11:15 09/15/24 08:00 09/13/24 00:00 FiO2 65 09/15/24 12:00 Narrative Exam PE: Gen: Well-developed and well-nourished. Obese. Sedated, paralyzed, and intubated. HEENT: NCAT, PERRLA, EOMI, MMM, anicteric conjunctivae. Acanthosis nigricans. CVS: normal S1 and S2. RRR. No M/R/G. Resp: Good lung sounds, slightly diminished due to body habitus. No wheezing or crackles auscultated. Abd: soft, non-tender, non-distended. MSK: Good ROM in BUE & BLE. No rash. Trace BLE edema. Stage II pressure ulcer sacrum and just below left buttock. Neuro: Unable to obtain. Objective Labs 09/15/24 05:26 09/15/24 05:26 Labs: Laboratory Results - last 24 hr 09/14/24 09/15/24 09/15/24 17:19 04:44 05:26 WBC 17.3 H RBC 4.83 Hgb 15.2 Hct 47.1 MCV 98 MCH 31.5 MCHC 32.3 RDW Std Deviation 50.2 H Plt Count 112 L D Neut % (Auto) 92 H Lymph % (Auto) 1 L [place] % (Auto) 4 Eos % (Auto) 0 Baso % (Auto) 0 Neut # (Auto) 15.9 H Lymph # (Auto) 0.2 L [place] # (Auto) 0.6 Eos # (Auto) 0.0 Baso # (Auto) 0.0 Immature Gran # (Auto) 0.51 H Absolute Nucleated RBC 0.00 Immature Gran % 3 H Nucleated RBC % 0 Puncture Site Right Radial ABG pH 7.22 L ABG pCO2 69 H D ABG pO2 67 L D ABG HCO3 29 H ABG O2 Saturation 92 ABG Base Excess -1 FiO2 100 Sodium 135 L 137 Potassium 5.8 H 5.6 H Chloride 101 100 Carbon Dioxide 28.1 27.1 Anion Gap 6 L 10 BUN 47 H 55 H Creatinine 2.3 H 3.2 H D Estim Creat Clear Calc 33.4 L 24.5 L eGFR 30 L 20 L BUN/Creatinine Ratio 20 17 Glucose 271 H 222 H Calculated Osmolality 292 295 Calcium 8.4 8.4 Corrected Calcium 9.1 9.2 Phosphorus 7.5 H 7.2 H Magnesium 3.2 H Total Bilirubin 0.7 AST 60 H ALT 84 H Alkaline Phosphatase 71 Total Protein 5.5 L Albumin 3.1 L 3.0 L Globulin 2.5 Albumin/Globulin Ratio 1.2 09/15/24 08:45 WBC RBC Hgb Hct MCV MCH MCHC RDW Std Deviation Plt Count Neut % (Auto) Lymph % (Auto) [place] % (Auto) Eos % (Auto) Baso % (Auto) Neut # (Auto) Lymph # (Auto) [place] # (Auto) Eos # (Auto) Baso # (Auto) Immature Gran # (Auto) Absolute Nucleated RBC Immature Gran % Nucleated RBC % Puncture Site Right Radial ABG pH 7.19 L* ABG pCO2 72 H* ABG pO2 62 L ABG HCO3 27 H ABG O2 Saturation 89 L ABG Base Excess -3 FiO2 70 Sodium Potassium Chloride Carbon Dioxide Anion Gap BUN Creatinine Estim Creat Clear Calc eGFR BUN/Creatinine Ratio Glucose Calculated Osmolality Calcium Corrected Calcium Phosphorus Magnesium Total Bilirubin AST ALT Alkaline Phosphatase Total Protein Albumin Globulin Albumin/Globulin Ratio ABG Interpretation ABG results: 09/08/24 09/09/24 09/10/24 22:55 18:09 04:18 ABG pH 7.40 7.41 7.38 ABG pCO2 42 44 48 ABG pO2 75 L 59 L* 68 L ABG HCO3 26 28 H 29 H ABG O2 Saturation 95 90 L 93 ABG Base Excess 1 3 3 09/10/24 09/11/24 09/12/24 12:16 04:34 04:00 ABG pH 7.43 7.43 7.45 ABG pCO2 46 48 45 ABG pO2 49 L* 48 L* 55 L* ABG HCO3 30 H 32 H 31 H ABG O2 Saturation 84 L 83 L 88 L ABG Base Excess 5 H 7 H 6 H 1209/13/24 09/13/24 13:06 17:37 22:17 ABG pH 7.45 7.26 L D 7.35 ABG pCO2 45 76 H* D 57 H D ABG pO2 53 L* 100 D 84 ABG HCO3 31 H 34 H 31 H ABG O2 Saturation 87 L 96 96 ABG Base Excess 6 H 4 H 4 H 09/14/24 09/14/24 09/14/24 04:10 06:03 06:23 ABG pH 7.11 L* D 7.09 L* 7.15 L* ABG pCO2 106 H* D 115 H* 91 H* D ABG pO2 122 H D 90 D 100 ABG HCO3 34 H 35 H 32 H ABG O2 Saturation 98 94 97 ABG Base Excess 0 0 0 09/15/24 09/15/24 04:44 08:45 ABG pH 7.22 L 7.19 L* ABG pCO2 69 H D 72 H* ABG pO2 67 L D 62 L ABG HCO3 29 H 27 H ABG O2 Saturation 92 89 L ABG Base Excess -1 -3 Quality Measures Quality Measures sepsis Current suspected stage: sepsis Possible source: pulmonary Blood cultures ordered: yes Antibiotic ordered: Yes Advance care planning discussed with:: sibling Assessment & Plan Assessment Current Active Medications: Generic Name Dose Route Start Last Admin Trade Name Freq PRN Reason Stop Dose Admin Acetaminophen 650 mg 09/08/24 22:46 Acetaminophen 325 Mg Tablet PO 10/08/24 22:45 Q6H PRN Fever >101.5 Albuterol/Ipratropium 3 ml 09/08/24 23:01 Albuterol/Ipratropium (Duoneb) Rt Sanjana 3 Ml Nebu INH 10/08/24 23:00 Q2HR PRN SHORTNESS OF BREATH OR WHEEZE Albuterol/Ipratropium 3 ml 09/10/24 03:00 09/15/24 09:56 Albuterol/Ipratropium (Duoneb) Rt Sanjana 3 Ml Nebu INH 10/10/24 02:59 3 ml Q4HRRT EDWIN Administration Aspirin 81 mg 09/14/24 09:15 09/15/24 08:11 Aspirin 81 Mg Chew GT 10/14/24 09:14 81 mg QDAY EDWIN Administration Azithromycin 500 mg 09/09/24 21:00 09/14/24 21:26 Azithromycin 250 Mg Tablet PO 09/16/24 20:59 500 mg QPM EDWIN Administration Balsam [place] Oil 0 gm 09/12/24 21:00 09/15/24 08:12 Balsam [place] Oil (Venelex) 60 Gm Tube TOP 10/12/24 20:59 1 applicatio BID EDWIN Administration Benzonatate 100 mg 09/09/24 00:01 Benzonatate 100 Mg Capsule PO 10/09/24 00:14 TID PRN Cough Protocol Dextrose 25 ml 09/08/24 22:42 Dextrose 50%-Water Inj 50 Ml Syringe IV 10/08/24 22:41 Q15MIN PRN BG 50-70 responsive npo pt Dextrose 50 ml 09/08/24 22:42 Dextrose 50%-Water Inj 50 Ml Syringe IV 10/08/24 22:41 Q15MIN PRN BG <50 OR BG <70 & pt unresponsive Diclofenac Sodium 2 gm 09/11/24 15:05 09/11/24 23:06 Diclofenac 1% Top Gel 100 Gm Tube TOP 10/11/24 17:59 2 gm Q6HR PRN Administration LOCALIZED PAIN Enoxaparin Sodium 40 mg 09/14/24 21:00 09/15/24 08:11 Enoxaparin Sod Inj 40 Mg/0.4 Ml Syringe SC 09/28/24 20:59 40 mg Q12HR EDWIN Administration Glucagon 1 mg 09/08/24 22:42 Glucagon Inj 1 Mg Vial IM Q15MIN PRN BG <70, and no IV access Cefepime HCl 2 gm/ Sodium 50 mls @ 100 mls/hr 09/10/24 15:10 09/15/24 14:07 Chloride IV 09/17/24 15:09 100 mls/hr Q8HR EDWIN Administration Doxycycline Hyclate 100 mg/ 100 mls @ 100 mls/hr 09/11/24 10:45 09/15/24 08:10 Sodium Chloride IV 09/18/24 10:44 100 mls/hr BID EDWIN Administration Dexmedetomidine/Sodium Chloride 200 mcg in 50 mls @ 5.756 mls/hr 09/13/24 14:54 09/13/24 16:45 Precedex Ivpb IV 10/13/24 14:53 0 mcg/kg/hr .Q8H42M PRN 0 mls/hr Per PROTOCOL Titration Protocol 0.2 MCG/KG/HR Cisatracurium Besylate 200 mg/ 520 mls @ 17.959 mls/hr 09/13/24 19:05 09/15/24 14:00 Sodium Chloride IV 10/13/24 19:04 0.5 mcg/kg/min .Q24H PRN 8.98 mls/hr Per Protocol Titration Protocol 1 MCG/KG/MIN Norepinephrine/Dextrose 8 mg in 250 mls @ 10.793 mls/hr 09/13/24 19:12 09/15/24 10:57 Levophed In D5w 8mg/250ml IV 10/13/24 19:11 0 mcg/kg/min .[id number] PRN 0 mls/hr PER PROTOCOL Titration Protocol 0.05 MCG/KG/MIN Propofol 1,000 mg in 100 mls @ 3.454 mls/hr 09/13/24 22:11 09/15/24 14:00 Diprivan Ivpb IV 10/13/24 16:46 45 mcg/kg/min .Q24H PRN 31.083 mls/hr PER PROTOCOL Titration Protocol 5 MCG/KG/MIN Fentanyl Citrate 2,500 mcg in 250 mls @ 2.5 mls/hr 09/13/24 22:12 09/15/24 14:00 Sublimaze Inj 2,500 Mcg/250 Ml Bag IV 09/18/24 16:45 125 mcg/hr .Q24H PRN 12.5 mls/hr PER PROTOCOL Titration Protocol 25 MCG/HR Midazolam HCl 100 mg in 100 mls @ 1 mls/hr 09/13/24 22:12 09/15/24 14:00 Versed Pf Inj In Ns Premix IV 09/18/24 17:06 3 mg/hr .Q24H PRN 3 mls/hr PER PROTOCOL Titration Protocol 1 MG/HR Insulin Glargine 46 unit 09/15/24 09:00 09/15/24 08:11 Insulin Glargine (Lantus) 5 Unit/0.05 Ml (Per 5 Units) SC 10/15/24 08:59 46 unit QDAY EDWIN Administration Insulin Human Lispro 0 unit 09/14/24 00:00 09/15/24 12:06 Insulin Lispro (Admelog) 1 Unit/0.01 Ml Unit SC 10/14/24 00:00 4 unit Q6HR EDWIN Administration Protocol Insulin Human Lispro 6 unit 09/14/24 12:00 09/15/24 12:05 Insulin Lispro (Admelog) 1 Unit/0.01 Ml Unit SC 10/14/24 11:59 6 unit Q6HR EDWIN Administration Methylprednisolone Sodium Succinate 60 mg 09/12/24 21:00 09/15/24 08:10 Methylprednisolone Sod Succ 40 Mg Vial IV 09/19/24 20:59 60 mg BID EDWIN Administration Pantoprazole Sodium 40 mg 09/11/24 13:45 09/15/24 08:10 Pantoprazole Inj 40 Mg Vial IV 10/11/24 13:44 40 mg QDAY EDWIN Administration Sennosides 1 tab 09/09/24 00:06 Senna Tablet PO 10/09/24 00:05 QDAY PRN CONSTIPATION Protocol Plan 69-year-old male with past medical history of coronary artery disease and open heart surgery in 2004 for bypass surgery, gastritis/GERD, dxm-oezuvpj-sfahfjvso type 2 diabetes is presenting to the ED on 09/08 with worsening shortness of breath and cough, admitted to ICU for acute hypoxic respiratory failure with ARDS. Neuro: #Sedated/intubated/paralyzed -Maintain sedation and paralytics, treat underlying ARDS Cardio: #CHF Patient does not have formally diagnosed history of CHF, but echo shows decreased systolic function with LVH, ejection fraction 45-50%. Patient has vascular congestion on chest x-rays. Patient was receiving Lasix, has net fluid loss 1.8 L during course of hospital admission. Currently appears euvolemic on exam, trace pedal edema, no crackles on lung auscultation. -Strict I's and O's -Maintain euvolemia -Bumex 2gm given #HTN Patient history hypertension. Patient BP has been low to normal in ICU. -Hold antihypertensive medication, may resume when BP normalized #CAD s/p CABG #Aneurysmal dilatation thoracic aorta (4.8cm) Patient has history of CAD with CABG and thoracic aorta aneurysm. Med recs pending. -Resume home aspirin -Home statin held in setting of transaminitis Pulm: #AHRF #ARDS Multifactorial: Influenza pneumonia plus pulmonary edema, possible bacterial superinfection Patient presented with shortness of breath and nonproductive cough for one week, influenza positive. Patient saturating well on BiPAP. Producing good urinary output. CTA ruled out pulmonary emboli. Patient not in acute respiratory distress at time of exam. Patient developed worsening hypoxic respiratory failure, requiring intubation, sedation, paralysis for ARDS Blood culture and MRSA screen negative ABG improved after proning: pH 7.15, pCO2 91, pO2 100 Chest x-ray shows bilateral pneumonia and vascular congestion -Proning as needed, 16/8 ratio. -lung protective ventilation -permissive hypercapnea -Ventilated titrate FiO2 to maintain sats greater than 88% -Tamiflu(09/09-09/19) -PO Azithromycin(09/09-09/16) -Doxycycline (09/11-09/18) -Cefepime(09/10-09/17) for pseudomonal coverage given hx of DMII -Solumedrol 60mg IV BID -Duoneb EDWIN q4Hr -Follow up sputum culture GI: #Transaminitis DDx: Acute illness vs. MASH Patient has acutely elevated liver enzymes. No RUQ tenderness. Obesity. -Hold statins -Monitor Renal: #LEWIS Likely ATN due to ischemia. Patient was hypotensive for 2 hours prior to LEWIS. Patient LEWIS is worsening, urine output has significantly decreased despite 80 mg Lasix IV. Bumex 1g IV given without improvement. 2g Bumex IV given, monitor for improvement. Nephro consulted. -Monitor urinary output -Maintain MAP >65 -follow up nephro consult -avoid nephrotoxins -daily labs #Hyperkalemia Likely related to ATN with decreased UOP. Slight improvement after 1 dose Kayexelate. -Additional Kayexalate -Monitor daily labs -cardiac cath lab technologist #Hyponatremia Mild hyponatremia, asymptomatic. Monitor Endo: #T2DM -ISS -Lantus 46 units -Lispro 6 units every 6 hours Heme: #Leukocytosis Multifactorial: Infection plus steroids -Monitor #Thrombocytopenia Platelets >100K, does not require transfusions. -Monitor ID: #Severe bilateral viral pneumonia -Treatment as in Pulm. Skin/MSK: #Pressure ulcers Patient has stage II pressure ulcer to sacrum, and just below the left buttock -Bandages ICU Health maintenance: Mechanical ventilation: Yes Sedation: Yes Diet: None DVT ppx: Lovenox GI ppx: Protonix Cannon: Yes IV lines: Yes Central line: Right IJ Arterial line: No Code status: Full code Plan of care discussed with attending Dr. Cornejo. Anthony Griffin MD PGY-1
[2024-09-15] MEDS: BUMETANIDE INJ 0.25 MG/ML VIAL 4 ML 2 MG IVP (14:47)
[2024-09-15 15:09] LABS: Base Excess -3 (-3-3); HCO3 27 mEq/L (20-26); Inspired Oxygen, FIO2 55 %; O2 Saturation 98 % (91-98); PCO2 72 mmHg (32.0-48.0); PO2 102 mmHg (83-108)
[2024-09-15 15:10] LABS: Allen Test Performed/OK; Puncture Site Left Radial; pH, Arterial 7.18 (7.35-7.45)
--- NOTE | 2024-09-15 16:55 | PD.INTPROC ---
Procedures Procedure Date / Time 09/15/24 8188 Arterial Line Indication(s): frequent arterial line sampling Informed consent obtained: obtained from surrogate decision maker Time out done, and the following verified: correct patient, side and site, procedure and patient position Technique used: guide wire technique Post-Procedure: dry sterile dressing placed Patient tolerated procedure: well and no complications EBL(ml): 5 Complications: none Site: left and radial
[2024-09-15 18:52] LABS: Anion Gap 9 (7-16); BUN/Creatinine Ratio 17 Ratio (12-20); Blood Urea Nitrogen 71 mg/dL (9-23); Calcium 7.9 mg/dL (8.3-10.6); Calcium (Corrected) 8.7 mg/dL (8.5-10.1); Carbon Dioxide 27.2 mMol/L (20.0-31.0); Chloride 101 mMol/L (98-107); Creatinine (Component) 4.3 mg/dL (0.6-1.3); Estimated Creatinine Clearance 18.2 mL/min (>60); Glucose 200 mg/dL (74-106); Osmolality,Calculated 300 (275-295); Potassium 5.2 mMol/L (3.4-5.1); Sodium 137 mMol/L (136-145); eGFR 14 See Note
--- NOTE | 2024-09-15 19:57 | PC.RT ---
rotated head to right side with RN Suman and Shaheed assist w/o complications.
[2024-09-15] MEDS: CEFEPIME INJ 1 GM in SODIUM CHLORIDE 0.9% (P) 50 ML IV (20:27)
[2024-09-15] MEDS: AZITHROMYCIN 250 MG TABLET 500 MG PO (20:27)
[2024-09-15] MEDS: ENOXAPARIN SOD INJ 30 MG/0.3 ML SYRINGE SC (20:31)
[2024-09-16] VITALS (43 sets, daily range): BP systolic 84–300; BP diastolic 37–286; PULSE 78–99; RESP 0–37; TEMP 36–36.9; O2SAT 81–99
--- NOTE | 2024-09-16 00:27 | PC.RT ---
Rotated head to right, Ett moved to right with RN Jackie and RT Nati assist.
[2024-09-16] MEDS: PROPOFOL 1,000 MG IVPB 1,000 MG/100 ML VIAL 31.083 MG IV ×7 (02:15→23:14)
[2024-09-16] MEDS: ALBUTEROL/IPRATROPIUM (Duoneb) RT SOL 3 ML NEBU INH ×6 (02:51→22:48)
[2024-09-16] MEDS: fentaNYL 2,500 MCG/250 ML BAG 2,500 MCG/250 ML BAG 12.5 MCG IV (04:24)
[2024-09-16 04:32] LABS: Base Excess -4 (-3-3); HCO3 26 mEq/L (20-26); Inspired Oxygen, FIO2 21 %; O2 Saturation 94 % (91-98); PCO2 67 mmHg (32.0-48.0); PO2 75 mmHg (83-108)
[2024-09-16 04:40] LABS: Allen Test Performed/OK; Puncture Site Left Radial
--- NOTE | 2024-09-16 04:58 | PC.RT ---
increased fio2 to 85% due to pt desating <88%, DORIS Will aware.
[2024-09-16] MEDS: INSULIN LISPRO (AdmeLOG) 1 UNIT/0.01 ML UNIT SC ×3 (05:44→18:34)
[2024-09-16] MEDS: INSULIN LISPRO (AdmeLOG) 1 UNIT/0.01 ML UNIT 6 UNIT SC ×3 (05:44→18:33)
[2024-09-16 05:59] LABS: Basophils # (Auto) 0.1 Thou/mm3 (0.0-0.2); Basophils % (Auto) 0 % (0-2.5); Eosinophils % (Auto) 0 % (0-10); Hematocrit 45.6 % (41.0-53.0); Hemoglobin 14.9 g/dL (13.5-16.0); Immature Granulocytes % (Auto) 4 % (0-0); Immature Granulocytes Auto 0.83 Thou/mm3 (0.00-0.00); Lymphocytes # (Auto) 0.3 Thou/mm3 (1.0-4.8); Lymphocytes % (Auto) 2 % (10-50); Mean Corpuscular HGB Conc 32.7 g/dl (31.0-37.0); Mean Corpuscular Hemoglobin 31.2 pg (25.0-35.0); Mean Corpuscular Volume 96 fL (80-100); Monocytes # (Auto) 0.6 Thou/mm3 (0.0-0.8); Monocytes % (Auto) 3 % (0-12); Neutrophils # (Auto) 17.2 Thou/mm3 (1.8-7.7); Neutrophils % (Auto) 91 % (37-80); Nucleated Red Blood Cell % 0 /100 WBC (0); Platelet Count 163 Thou/mm3 (140-440); RDW Standard Deviation 49.6 fL (35.1-43.9); Red Blood Count 4.77 Miln/mm3 (4.50-5.90); White Blood Count 18.9 Thou/mm3 (3.8-10.6)
[2024-09-16 06:23] LABS: Alanine Aminotransferase 84 U/L (10-49); Albumin, Serum 2.8 gm/dL (3.4-4.8); Alkaline Phosphatase 70 U/L (46-116); Anion Gap 13 (7-16); Aspartate Amino Transferase 69 U/L (0-34); BUN/Creatinine Ratio 16 Ratio (12-20); Bilirubin,Total 0.5 mg/dL (0.3-1.2); Blood Urea Nitrogen 78 mg/dL (9-23); Calcium 8.3 mg/dL (8.3-10.6); Calcium (Corrected) 9.3 mg/dL (8.5-10.1); Carbon Dioxide 23.1 mMol/L (20.0-31.0); Chloride 100 mMol/L (98-107); Creatinine (Component) 4.8 mg/dL (0.6-1.3); Estimated Creatinine Clearance 16.5 mL/min (>60); Globulin 2.7 gm/dL (2.3-3.5); Glucose 205 mg/dL (74-106); Magnesium 2.9 mg/dL (1.6-2.6); Osmolality,Calculated 301 (275-295); Potassium 5.1 mMol/L (3.4-5.1); Sodium 136 mMol/L (136-145); Total Protein 5.5 gm/dL (5.7-8.2); eGFR 13 See Note
[2024-09-16 06:50] LABS: Legionella Ag, EIA, Urine* NOT DETECTED
[2024-09-16] MEDS: MIDAZOLAM/NS 100 MG IVPB 100 MG/100 ML BAG IV (08:43)
[2024-09-16] MEDS: Norepinephrine/D5W 8mg/250ml 8 MG/250 ML BAG 19.427 MG IV (08:52)
[2024-09-16] MEDS: PANTOPRAZOLE INJ 40 MG VIAL IV (08:56)
[2024-09-16] MEDS: ENOXAPARIN SOD INJ 30 MG/0.3 ML SYRINGE SC ×2 (08:57→20:09)
[2024-09-16] MEDS: ASPIRIN 81 MG CHEW GT (08:57)
[2024-09-16] MEDS: CEFEPIME INJ 1 GM in SODIUM CHLORIDE 0.9% (P) 50 ML IV ×2 (08:58→20:08)
[2024-09-16] MEDS: BALSAM PERU/CASTOR OIL (Venelex) 60 GM TUBE TOP ×2 (08:59→20:02)
[2024-09-16] MEDS: INSULIN GLARGINE (Lantus) 5 UNIT/0.05 ML (PER 5 UNITS) 46 UNIT SC (09:35)
[2024-09-16] MEDS: DOXYCYCLINE INJ 100 MG in SODIUM CHLORIDE 0.9% (P) 100 ML IV ×2 (09:52→20:06)
--- NOTE | 2024-09-16 13:23 | ESOP_ITS ---
<Statement entered by Devora Le MD - 09/16/24 17:27> I was present for the critical and ivey portions of the procedure and was immediately available to provide assistance. Procedures Procedure Date / Time 09/16/24 1255 Procedural Time Out Time out performed: Yes Central Line Placement Left IJ: Indication(s): other (Hemodialysis) Informed consent obtained: obtained from surrogate decision maker Time out done, and the following verified: correct patient, side and site, procedure, patient position and implants and/or equipment Patient placed on monitor/pulse ox: Yes Hand Hygiene: scrub, soap & water, alcohol-based hand rub and other Max Sterile Barrier Techniques used: cap, mask, sterile gown, sterile gloves and sterile full body drape Central line prep: Povidone-Iodine 1%, Chlorhexidine scrub and sterile drapes applied Local anesthesia used: lidocaine 1% Amount of anesthesia used (mL): 2 Ultrasound used for placement: Yes Sterile Technique if Ultrasound used, including sterile gel: yes Central line lumen inserted: triple Post procedure: sutured in place, good blood return, all ports aspirated, flushed, capped and sterile dressing applied Post procedure x-ray: tip of catheter in good position and no pneumothorax seen Patient tolerated procedure: well and no complications EBL(ml): 2 Complications: none
--- NOTE | 2024-09-16 13:35 | XR_ITS ---
Examination: AP chest single view Technique one AP portable upright chest single view Exam date and time: 04/16/2024 1356 hours Comparison September 13, 2024 INDICATIONS: Post temporary dialysis catheter placement FINDINGS: Pneumomediastinum with subcutaneous air in the soft tissue neck Left internal jugular temporary dialysis catheter tip SVC Right internal jugular central line tip SVC No significant cardiac enlargement Median sternotomy wires Prominent vascular congestion Bilateral pneumonia IMPRESSION: Interval insertion left internal jugular temporary dialysis catheter, tip SVC
--- NOTE | 2024-09-16 13:36 | PD.RESPRO ---
Documentation for date of: 09/16/24 Subjective Subjective Interval history: Patient currently seen in ICU. On ventilator. History was taken based on chart review and information from the ICU team. Per resident note-Mr. Joel is a 69-year-old morbidly obese gentleman with past medical history significant for coronary artery disease s/p CABG in 2004, diabetes type 2, GERD, hypertension, dyslipidemia presented to the emergency department shortness of breath and coughing along with fevers and noted to have flu/bilateral extensive pneumonia. Initially was admitted to floor and subsequently due to hypoxic respiratory failure was transferred to ICU and intubated. In ICU- developed worsening hypoxia in setting of ARDS. Patient currently in prone ventilation, requiring paralytics and sedation. 09/15/2024: Patient currently seen in ICU. In prone ventilation. Labs reviewed. Urine output very poor despite diuretics. Creatinine getting worse. Spoke to Dr. Cornejo-if no improvement in renal function he might need renal replacement therapy in the next 1 to 2 days. 09/16/2024: Patient seen on the bedside in the ICU. In the supine position today, was proned yesterday. Continues to be paralyzed and sedated on mechanical ventilation, FiO2 85%, SaO2 95%. Received bumetanide yesterday, urine output continues to be minimal 5-10 ml despite the fluid intake of almost 2L. Labs showed sodium 136, potassium 5.1, bicarb 23.1, BUN 78, creatinine 4.8, EGFR 13. Kidney functions continue to worsen in the last few days, continues to be anuric, patient is is requiring dialysis. Temporary dialysis catheter was placed today. Exam Vital Signs Temp Pulse Resp BP Pulse Ox O2 Del Method O2 Flow Rate 98.1 F 89 36 H 104/62 95 Mechanical Ventilation 40 09/16/24 08:00 09/16/24 11:00 09/16/24 10:45 09/16/24 11:00 09/16/24 11:00 09/16/24 08:00 09/13/24 00:00 FiO2 85 09/16/24 10:45 Narrative Exam Physical Exam General: Sedated, paralyzed on mechanical ventilation. In supine position. HEENT: Normocephalic, atraumatic, mucous membranes moist. Heart: Regular rate and rhythm, no murmurs. Lungs: Clear to auscultation with no wheezing or crackles. Abdomen: Soft, nondistended, nontender, positive bowel sounds. ?No guarding or rebound tenderness. Neurologic: Impossible to assess patient is paralyzed and sedated. Extremities: Mild ankle edema. Skin: No rash or ecchymoses. Objective Labs 09/16/24 05:00 09/16/24 05:00 Labs: Laboratory Results - last 24 hr 09/08/24 09/15/24 09/15/24 22:15 15:00 17:50 WBC RBC Hgb Hct MCV MCH MCHC RDW Std Deviation Plt Count Neut % (Auto) Lymph % (Auto) [place] % (Auto) Eos % (Auto) Baso % (Auto) Neut # (Auto) Lymph # (Auto) [place] # (Auto) Eos # (Auto) Baso # (Auto) Immature Gran # (Auto) Absolute Nucleated RBC Immature Gran % Nucleated RBC % Puncture Site Left Radial ABG pH 7.18 L* ABG pCO2 72 H* ABG pO2 102 D ABG HCO3 27 H ABG O2 Saturation 98 ABG Base Excess -3 FiO2 55 Sodium 137 Potassium 5.2 H Chloride 101 Carbon Dioxide 27.2 Anion Gap 9 BUN 71 H Creatinine 4.3 H* D Estim Creat Clear Calc 18.2 L eGFR 14 L* BUN/Creatinine Ratio 17 Glucose 200 H Calculated Osmolality 300 H Calcium 7.9 L Corrected Calcium 8.7 Phosphorus 8.0 H Magnesium Total Bilirubin AST ALT Alkaline Phosphatase Total Protein Albumin 3.0 L Globulin Albumin/Globulin Ratio Urine Legionella Ag NOT DETECTED 09/16/24 09/16/24 04:18 05:00 WBC 18.9 H RBC 4.77 Hgb 14.9 Hct 45.6 MCV 96 MCH 31.2 MCHC 32.7 RDW Std Deviation 49.6 H Plt Count 163 D Neut % (Auto) 91 H Lymph % (Auto) 2 L [place] % (Auto) 3 Eos % (Auto) 0 Baso % (Auto) 0 Neut # (Auto) 17.2 H Lymph # (Auto) 0.3 L [place] # (Auto) 0.6 Eos # (Auto) 0.0 Baso # (Auto) 0.1 Immature Gran # (Auto) 0.83 H Absolute Nucleated RBC 0.00 Immature Gran % 4 H Nucleated RBC % 0 Puncture Site Left Radial ABG pH 7.20 L ABG pCO2 67 H ABG pO2 75 L D ABG HCO3 26 ABG O2 Saturation 94 ABG Base Excess -4 L FiO2 21 Sodium 136 Potassium 5.1 Chloride 100 Carbon Dioxide 23.1 Anion Gap 13 BUN 78 H Creatinine 4.8 H* D Estim Creat Clear Calc 16.5 L eGFR 13 L* BUN/Creatinine Ratio 16 Glucose 205 H Calculated Osmolality 301 H Calcium 8.3 Corrected Calcium 9.3 Phosphorus 8.0 H Magnesium 2.9 H Total Bilirubin 0.5 AST 69 H ALT 84 H Alkaline Phosphatase 70 Total Protein 5.5 L Albumin 2.8 L Globulin 2.7 Albumin/Globulin Ratio 1.0 L Urine Legionella Ag ABG Interpretation ABG results: 09/08/24 09/09/24 09/10/24 22:55 18:09 04:18 ABG pH 7.40 7.41 7.38 ABG pCO2 42 44 48 ABG pO2 75 L 59 L* 68 L ABG HCO3 26 28 H 29 H ABG O2 Saturation 95 90 L 93 ABG Base Excess 1 3 3 09/10/24 09/11/24 09/12/24 12:16 04:34 04:00 ABG pH 7.43 7.43 7.45 ABG pCO2 46 48 45 ABG pO2 49 L* 48 L* 55 L* ABG HCO3 30 H 32 H 31 H ABG O2 Saturation 84 L 83 L 88 L ABG Base Excess 5 H 7 H 6 H 09/13/24 09/13/24 09/13/24 13:06 17:37 22:17 ABG pH 7.45 7.26 L D 7.35 ABG pCO2 45 76 H* D 57 H D ABG pO2 53 L* 100 D 84 ABG HCO3 31 H 34 H 31 H ABG O2 Saturation 87 L 96 96 ABG Base Excess 6 H 4 H 4 H 09/14/24 09/14/24 09/14/24 04:10 06:03 06:23 ABG pH 7.11 L* D 7.09 L* 7.15 L* ABG pCO2 106 H* D 115 H* 91 H* D ABG pO2 122 H D 90 D 100 ABG HCO3 34 H 35 H 32 H ABG O2 Saturation 98 94 97 ABG Base Excess 0 0 0 09/15/24 09/15/24 09/15/24 04:44 08:45 15:00 ABG pH 7.22 L 7.19 L* 7.18 L* ABG pCO2 69 H D 72 H* 72 H* ABG pO2 67 L D 62 L 102 D ABG HCO3 29 H 27 H 27 H ABG O2 Saturation 92 89 L 98 ABG Base Excess -1 -3 -3 09/16/24 04:18 ABG pH 7.20 L ABG pCO2 67 H ABG pO2 75 L D ABG HCO3 26 ABG O2 Saturation 94 ABG Base Excess -4 L Quality Measures Quality Measures sepsis Current suspected stage: sepsis Possible source: pulmonary Blood cultures ordered: yes Antibiotic ordered: Yes Advance care planning discussed with:: other Assessment & Plan Assessment Current Active Medications: Generic Name Dose Route Start Last Admin Trade Name Freq PRN Reason Stop Dose Admin Acetaminophen 650 mg 09/08/24 22:46 Acetaminophen 325 Mg Tablet PO 10/08/24 22:45 Q6H PRN Fever >101.5 Albuterol/Ipratropium 3 ml 09/08/24 23:01 Albuterol/Ipratropium (Duoneb) Rt Sanjana 3 Ml Nebu INH 10/08/24 23:00 Q2HR PRN SHORTNESS OF BREATH OR WHEEZE Albuterol/Ipratropium 3 ml 09/10/24 03:00 09/16/24 10:45 Albuterol/Ipratropium (Duoneb) Rt Sanjana 3 Ml Nebu INH 10/10/24 02:59 3 ml Q4HRRT EDWIN Administration Aspirin 81 mg 09/14/24 09:15 09/16/24 08:57 Aspirin 81 Mg Chew GT 10/14/24 09:14 81 mg QDAY EDWIN Administration Azithromycin 500 mg 09/09/24 21:00 09/15/24 20:27 Azithromycin 250 Mg Tablet PO 09/16/24 20:59 500 mg QPM EDWIN Administration Balsam [place] Oil 0 gm 09/12/24 21:00 09/16/24 08:59 Balsam [place] Oil (Venelex) 60 Gm Tube TOP 10/12/24 20:59 1 applicatio BID EDWIN Administration Benzonatate 100 mg 09/09/24 00:01 Benzonatate 100 Mg Capsule PO 10/09/24 00:14 TID PRN Cough Protocol Dextrose 25 ml 09/08/24 22:42 Dextrose 50%-Water Inj 50 Ml Syringe IV 10/08/24 22:41 Q15MIN PRN BG 50-70 responsive npo pt Dextrose 50 ml 09/08/24 22:42 Dextrose 50%-Water Inj 50 Ml Syringe IV 10/08/24 22:41 Q15MIN PRN BG <50 OR BG <70 & pt unresponsive Diclofenac Sodium 2 gm 09/11/24 15:05 09/11/24 23:06 Diclofenac 1% Top Gel 100 Gm Tube TOP 10/11/24 17:59 2 gm Q6HR PRN Administration LOCALIZED PAIN Enoxaparin Sodium 30 mg 09/15/24 21:00 09/16/24 08:57 Enoxaparin Sod Inj 30 Mg/0.3 Ml Syringe SC 09/28/24 20:59 30 mg Q12HR EDWIN Administration Glucagon 1 mg 09/08/24 22:42 Glucagon Inj 1 Mg Vial IM Q15MIN PRN BG <70, and no IV access Heparin Sodium (Porcine) 100 unit 09/16/24 13:30 Heparin Sod Inj 100 Unit/Ml Vial 30 Ml IV 09/30/24 13:29 DAILY EDWIN Doxycycline Hyclate 100 mg/ 100 mls @ 100 mls/hr 09/11/24 10:45 09/16/24 10:52 Sodium Chloride IV 09/18/24 10:44 Infused BID EDWIN Infusion Dexmedetomidine/Sodium Chloride 200 mcg in 50 mls @ 5.756 mls/hr 09/13/24 14:54 09/13/24 16:45 Precedex Ivpb IV 10/13/24 14:53 0 mcg/kg/hr .[id number] PRN 0 mls/hr Per PROTOCOL Titration Protocol 0.2 MCG/KG/HR Cisatracurium Besylate 200 mg/ 520 mls @ 17.959 mls/hr 09/13/24 19:05 09/16/24 13:00 Sodium Chloride IV 10/13/24 19:04 1.25 mcg/kg/min .Q24H PRN 22.449 mls/hr Per Protocol Titration Protocol 1 MCG/KG/MIN Norepinephrine/Dextrose 8 mg in 250 mls @ 10.793 mls/hr 09/13/24 19:12 09/16/24 13:24 Levophed In D5w 8mg/250ml IV 10/13/24 19:11 0.05 mcg/kg/min .[id number] PRN 10.793 mls/hr PER PROTOCOL Titration Protocol 0.05 MCG/KG/MIN Propofol 1,000 mg in 100 mls @ 3.454 mls/hr 09/13/24 22:11 09/16/24 13:00 Diprivan Ivpb IV 10/13/24 16:46 45 mcg/kg/min .Q24H PRN 31.083 mls/hr PER PROTOCOL Titration Protocol 5 MCG/KG/MIN Fentanyl Citrate 2,500 mcg in 250 mls @ 2.5 mls/hr 09/13/24 22:12 09/16/24 13:00 Sublimaze Inj 2,500 Mcg/250 Ml Bag IV 09/18/24 16:45 125 mcg/hr .Q24H PRN 12.5 mls/hr PER PROTOCOL Titration Protocol 25 MCG/HR Midazolam HCl 100 mg in 100 mls @ 1 mls/hr 09/13/24 22:12 09/16/24 13:00 Versed Pf Inj In Ns Premix IV 09/18/24 17:06 3 mg/hr .Q24H PRN 3 mls/hr PER PROTOCOL Titration Protocol 1 MG/HR Cefepime HCl 1 gm/ Sodium 50 mls @ 100 mls/hr 09/15/24 21:00 09/16/24 09:28 Chloride IV 09/17/24 15:09 Infused Q12HR EDWIN Infusion Insulin Glargine 46 unit 09/15/24 09:00 09/16/24 09:35 Insulin Glargine (Lantus) 5 Unit/0.05 Ml (Per 5 Units) SC 10/15/24 08:59 46 unit QDAY EDWIN Administration Insulin Human Lispro 0 unit 09/14/24 00:00 09/16/24 05:44 Insulin Lispro (Admelog) 1 Unit/0.01 Ml Unit SC 10/14/24 00:00 4 unit Q6HR EDWIN Administration Protocol Insulin Human Lispro 6 unit 09/14/24 12:00 09/16/24 05:44 Insulin Lispro (Admelog) 1 Unit/0.01 Ml Unit SC 10/14/24 11:59 6 unit Q6HR EDWIN Administration Methylprednisolone Sodium Succinate 60 mg 09/12/24 21:00 09/16/24 08:57 Methylprednisolone Sod Succ 40 Mg Vial IV 09/19/24 20:59 60 mg BID EDWIN Administration Pantoprazole Sodium 40 mg 09/11/24 13:45 09/16/24 08:56 Pantoprazole Inj 40 Mg Vial IV 10/11/24 13:44 40 mg QDAY EDWIN Administration Sennosides 1 tab 09/09/24 00:06 Senna Tablet PO 10/09/24 00:05 QDAY PRN CONSTIPATION Protocol Plan The patient is a 69-year-old morbidly obese gentleman with past medical history significant for coronary artery disease s/p CABG in 2004, diabetes type 2, GERD, hypertension, dyslipidemia presented to the emergency department shortness of breath and coughing along with fevers and noted to have flu/bilateral extensive pneumonia. Initially was admitted to floor and subsequently due to hypoxic respiratory failure was transferred to ICU and intubated. Nephrology was consulted due to LEWIS and dialysis. #LEWIS- ATN #Hyperkalemia Most likely ATN in the setting of of shock and prolonged hypotension. 09/15/24: Patient was put in the prone position due to acute hypoxic respiratory failure and ARDS. Daily urine output 0.4 L. Bumex 1 mg once and Bumex 2 mg once was given, patient continues to have poor urine output. Patient received kayexalate 30 g once. 09/16/2024: Patient continues to have poor urine output 5 to 10 mL/h. Labs showed sodium 136, potassium 5.1, bicarb 23.1, BUN 78, creatinine 4.8, EGFR 13. Temporary dialysis catheter was placed. Patient would require dialysis due to his kidney failure. Plan: ?Monitor daily CMP ? Avoid nephrotoxic agents ? Maintain MAP above 65 ? Renally dose medications ? Emergent dialysis #Congestive heart failure #HTN #CAD s/p CABG #AHRF #ARDS #Transaminitis #T2DM #Leukocytosis #Thrombocytopenia #Severe bilateral viral pneumonia #Pressure ulcers - Management as per primary team Plan of care discussed with attending Dr. Meng. Benita Donald MD, PGY 1. Attending Provider Attestation/Addendum Patient seen and examined with resident physician, Dr. Joy. Note reviewed, agree with findings and recommendations. Critical care time spent > 35 min- POC, mgmt Worsening azotemia with no UOP. Decided to proceed with dialysis. Vascath placed by ICU team. Will start Conventional dialysis. CRRT not available.
--- NOTE | 2024-09-16 14:51 | ESPR_ITS ---
<Statement entered by Devora Le MD - 09/17/24 11:42> TOTAL CC TIME: 45 MIN TOTAL TIME: 45MINUTES ON DIRECT MEDICAL CARE, MANAGEMENT - COORDINATION AND COUNSELING > 50% OF TOTAL TIME I saw and evaluated the patient. I reviewed the resident?s note and agree with findings and plan as documented in the resident?s note. Upon my evaluation, this patient had a high probability of imminent or life- threatening deterioration due to acute hypoxic respiratory failure with ARDS which required my direct attention, intervention, and personal management. This time is exclusive of time spent on procedures, which are documented separately if performed. Noncompliance has not improved, remains on high FiO2 support chest x-ray with diffuse infiltrates Continue full supportive care. Plateau pressure at approximately 30 cm H2O Continue current PEEP levels No new fevers or have been noted Hemodialysis catheter placed due to ATN -career development coordinator is following We will consider prone positioning the patient again Continue tube feeds Overall prognosis is poor Documentation for date of: 09/16/24 Subjective Subjective Interval history: 69-year-old male with past medical history of coronary artery disease and open heart surgery in 2004 for bypass surgery, gastritis/GERD, [id number] type 2 diabetes is presenting to the ED on 09/08 with worsening shortness of breath and cough. Patient states that about 1 week ago his symptoms started with some mild coughing and shortness of breath which was worse with ambulation. Patient also states that during this time he started to develop subjective fevers but did not check his temperature. Patient went to his family care physician who gave him oral antibiotics and some form of injection, he was told that if his symptoms do not improve to present to the ED. Patient has extensive history of cardiac disease, last visited the furniture finisher about a year ago and states that at that time everything was fine. Symptoms continued to progress despite outpatient antibiotics, prompting ED visit. Patient was admitted to the floors, found to be positive for influenza. Chest imaging indicated severe pneumonia. Patient placed on 40 L/min O2 at 100% FiO2 with minimal improvement in saturations. Patient given breathing treatment, placed on BiPAP, and given Lasix with moderate improvement in symptoms. Patient reported using BiPAP at home for sleep apnea. The following day, patient reported mild subjective improvement in symptoms. Patient desaturated when changed to HFNC. ICU was consulted for continued respiratory distress and desaturation when off BiPAP. Patient continued to be treated on the floors using BiPAP, Duonebs, and steroids, however developed worsening hypoxia in setting of ARDS. Patient eventually was brought to ICU and proned without significant improvement, required paralytics and intubation. After sedation, patient developed hypotension requiring pressors, which was quickly weaned off. 09/14/2024: Patient seen and examined at bedside. Patient remains sedated, intubated, paralyzed due to severe ARDS. Afebrile overnight. Patient proned, will remain for 16 hours. Blood pressure stable without pressors. ABG after proning showed improvement. Patient remains notably hyperglycemic, adjusted daily insulin. 09/15/2024: Patient seen and examined at bedside. Patient sedated, intubated paralyzed. Afebrile overnight. Patient proned 16 hours overnight, supine for over 8 hours. Patient developed slight hypotension after supination, pressors initiated, titrated off. Patient FiO2 requirements increased after supination. Patient proned again for 16 hours, with improvement in FiO2 requirements. Patient urine output remains poor despite Lasix, will try Bumex. LEWIS worsening. Nephrology consulted. 09/16/2024: The patient was examined at the bedside this morning. Patient was sedated, intubated and paralyzed due to severe ARDS. He was proned for 16 hours and later placed on supine position patient. His FiO2 came down to 80 percent from 85%. Left IJ hemodialysis catheter was placed, and patient was started on hemodialysis for low urine output, in the setting of ATN. Exam Vital Signs Temp Pulse Resp BP Pulse Ox O2 Del Method O2 Flow Rate 98.4 F 94 36 H 129/63 97 Mechanical Ventilation 40 09/16/24 14:18 09/16/24 14:45 09/16/24 14:30 09/16/24 14:45 09/16/24 14:30 09/16/24 12:00 09/13/24 00:00 FiO2 80 09/16/24 14:30 Narrative Exam GENERAL APPEARANCE: Patient currently seen in ICU. Sedated and mechanically ventillated CARDIOVASCULAR: Heart regular, no murmurs LUNGS/CHEST: Bilateral rhonchi ABDOMEN: Soft, nontender, nondistended. No masses. Normal bowel sounds. EXTREMITIES: 1+ edema in the lower extremities SKIN: Skin exam normal without any rashes NEUROLOGICAL : Intubated, sedated, paralyzed Objective Labs 09/16/24 05:00 09/16/24 05:00 Labs: Laboratory Results - last 24 hr 09/08/24 09/15/24 09/15/24 22:15 15:00 17:50 WBC RBC Hgb Hct MCV MCH MCHC RDW Std Deviation Plt Count Neut % (Auto) Lymph % (Auto) [place] % (Auto) Eos % (Auto) Baso % (Auto) Neut # (Auto) Lymph # (Auto) [place] # (Auto) Eos # (Auto) Baso # (Auto) Immature Gran # (Auto) Absolute Nucleated RBC Immature Gran % Nucleated RBC % Puncture Site Left Radial ABG pH 7.18 L* ABG pCO2 72 H* ABG pO2 102 D ABG HCO3 27 H ABG O2 Saturation 98 ABG Base Excess -3 FiO2 55 Sodium 137 Potassium 5.2 H Chloride 101 Carbon Dioxide 27.2 Anion Gap 9 BUN 71 H Creatinine 4.3 H* D Estim Creat Clear Calc 18.2 L eGFR 14 L* BUN/Creatinine Ratio 17 Glucose 200 H Calculated Osmolality 300 H Calcium 7.9 L Corrected Calcium 8.7 Phosphorus 8.0 H Magnesium Total Bilirubin AST ALT Alkaline Phosphatase Total Protein Albumin 3.0 L Globulin Albumin/Globulin Ratio Urine Legionella Ag NOT DETECTED 09/16/24 09/16/24 04:18 05:00 WBC 18.9 H RBC 4.77 Hgb 14.9 Hct 45.6 MCV 96 MCH 31.2 MCHC 32.7 RDW Std Deviation 49.6 H Plt Count 163 D Neut % (Auto) 91 H Lymph % (Auto) 2 L [place] % (Auto) 3 Eos % (Auto) 0 Baso % (Auto) 0 Neut # (Auto) 17.2 H Lymph # (Auto) 0.3 L [place] # (Auto) 0.6 Eos # (Auto) 0.0 Baso # (Auto) 0.1 Immature Gran # (Auto) 0.83 H Absolute Nucleated RBC 0.00 Immature Gran % 4 H Nucleated RBC % 0 Puncture Site Left Radial ABG pH 7.20 L ABG pCO2 67 H ABG pO2 75 L D ABG HCO3 26 ABG O2 Saturation 94 ABG Base Excess -4 L FiO2 21 Sodium 136 Potassium 5.1 Chloride 100 Carbon Dioxide 23.1 Anion Gap 13 BUN 78 H Creatinine 4.8 H* D Estim Creat Clear Calc 16.5 L eGFR 13 L* BUN/Creatinine Ratio 16 Glucose 205 H Calculated Osmolality 301 H Calcium 8.3 Corrected Calcium 9.3 Phosphorus 8.0 H Magnesium 2.9 H Total Bilirubin 0.5 AST 69 H ALT 84 H Alkaline Phosphatase 70 Total Protein 5.5 L Albumin 2.8 L Globulin 2.7 Albumin/Globulin Ratio 1.0 L Urine Legionella Ag ABG Interpretation ABG results: 09/08/24 09/09/24 09/10/24 22:55 18:09 04:18 ABG pH 7.40 7.41 7.38 ABG pCO2 42 44 48 ABG pO2 75 L 59 L* 68 L ABG HCO3 26 28 H 29 H ABG O2 Saturation 95 90 L 93 ABG Base Excess 1 3 3 09/10/24 09/11/24 09/12/24 12:16 04:34 04:00 ABG pH 7.43 7.43 7.45 ABG pCO2 46 48 45 ABG pO2 49 L* 48 L* 55 L* ABG HCO3 30 H 32 H 31 H ABG O2 Saturation 84 L 83 L 88 L ABG Base Excess 5 H 7 H 6 H 09/13/24 09/13/24 09/13/24 13:06 17:37 22:17 ABG pH 7.45 7.26 L D 7.35 ABG pCO2 45 76 H* D 57 H D ABG pO2 53 L* 100 D 84 ABG HCO3 31 H 34 H 31 H ABG O2 Saturation 87 L 96 96 ABG Base Excess 6 H 4 H 4 H 09/14/24 09/14/24 09/14/24 04:10 06:03 06:23 ABG pH 7.11 L* D 7.09 L* 7.15 L* ABG pCO2 106 H* D 115 H* 91 H* D ABG pO2 122 H D 90 D 100 ABG HCO3 34 H 35 H 32 H ABG O2 Saturation 98 94 97 ABG Base Excess 0 0 0 09/15/24 09/15/24 09/15/24 04:44 08:45 15:00 ABG pH 7.22 L 7.19 L* 7.18 L* ABG pCO2 69 H D 72 H* 72 H* ABG pO2 67 L D 62 L 102 D ABG HCO3 29 H 27 H 27 H ABG O2 Saturation 92 89 L 98 ABG Base Excess -1 -3 -3 09/16/24 04:18 ABG pH 7.20 L ABG pCO2 67 H ABG pO2 75 L D ABG HCO3 26 ABG O2 Saturation 94 ABG Base Excess -4 L Quality Measures Quality Measures sepsis Current suspected stage: sepsis Possible source: pulmonary Blood cultures ordered: yes Antibiotic ordered: Yes Advance care planning discussed with:: other Assessment & Plan Assessment Current Active Medications: Generic Name Dose Route Start Last Admin Trade Name Freq PRN Reason Stop Dose Admin Acetaminophen 650 mg 09/08/24 22:46 Acetaminophen 325 Mg Tablet PO 10/08/24 22:45 Q6H PRN Fever >101.5 Albuterol/Ipratropium 3 ml 09/08/24 23:01 Albuterol/Ipratropium (Duoneb) Rt Sanjana 3 Ml Nebu INH 10/08/24 23:00 Q2HR PRN SHORTNESS OF BREATH OR WHEEZE Albuterol/Ipratropium 3 ml 09/10/24 03:00 09/16/24 14:29 Albuterol/Ipratropium (Duoneb) Rt Sanjana 3 Ml Nebu INH 10/10/24 02:59 3 ml Q4HRRT EDWIN Administration Aspirin 81 mg 09/14/24 09:15 09/16/24 08:57 Aspirin 81 Mg Chew GT 10/14/24 09:14 81 mg QDAY EDWIN Administration Azithromycin 500 mg 09/09/24 21:00 09/15/24 20:27 Azithromycin 250 Mg Tablet PO 09/16/24 20:59 500 mg QPM EDWIN Administration Balsam Wade/[place] Oil 0 gm 09/12/24 21:00 09/16/24 08:59 Balsam Wade/[place] Oil (Venelex) 60 Gm Tube TOP 10/12/24 20:59 1 applicatio BID EDWIN Administration Benzonatate 100 mg 09/09/24 00:01 Benzonatate 100 Mg Capsule PO 10/09/24 00:14 TID PRN Cough Protocol Dextrose 25 ml 09/08/24 22:42 Dextrose 50%-Water Inj 50 Ml Syringe IV 10/08/24 22:41 Q15MIN PRN BG 50-70 responsive npo pt Dextrose 50 ml 09/08/24 22:42 Dextrose 50%-Water Inj 50 Ml Syringe IV 10/08/24 22:41 Q15MIN PRN BG <50 OR BG <70 & pt unresponsive Diclofenac Sodium 2 gm 09/11/24 15:05 09/11/24 23:06 Diclofenac 1% Top Gel 100 Gm Tube TOP 10/11/24 17:59 2 gm Q6HR PRN Administration LOCALIZED PAIN Enoxaparin Sodium 30 mg 09/15/24 21:00 09/16/24 08:57 Enoxaparin Sod Inj 30 Mg/0.3 Ml Syringe SC 09/28/24 20:59 30 mg Q12HR EDWIN Administration Glucagon 1 mg 09/08/24 22:42 Glucagon Inj 1 Mg Vial IM Q15MIN PRN BG <70, and no IV access Heparin Sodium (Beef Lung) 100 unit 09/16/24 14:15 09/16/24 14:23 Heparin Sod Lock Syr 100 Unit/Ml IV 09/30/24 13:29 Not Given DAILY [facility] Heparin Sodium (Porcine) 2,500 unit 09/16/24 14:45 Heparin Sod Inj 1000 Unit/Ml Vial 10 Ml INDWELLCAT 09/30/24 14:44 PRN PRN DIALYSIS Doxycycline Hyclate 100 mg/ 100 mls @ 100 mls/hr 09/11/24 10:45 09/16/24 10:52 Sodium Chloride IV 09/18/24 10:44 Infused BID EDWIN Infusion Dexmedetomidine/Sodium Chloride 200 mcg in 50 mls @ 5.756 mls/hr 09/13/24 14:54 09/13/24 16:45 Precedex Ivpb IV 10/13/24 14:53 0 mcg/kg/hr .Q8H42M PRN 0 mls/hr Per PROTOCOL Titration Protocol 0.2 MCG/KG/HR Cisatracurium Besylate 200 mg/ 520 mls @ 17.959 mls/hr 09/13/24 19:05 09/16/24 14:00 Sodium Chloride IV 10/13/24 19:04 1.25 mcg/kg/min .Q24H PRN 22.449 mls/hr Per Protocol Titration Protocol 1 MCG/KG/MIN Norepinephrine/Dextrose 8 mg in 250 mls @ 10.793 mls/hr 09/13/24 19:12 09/16/24 14:00 Levophed In D5w 8mg/250ml IV 10/13/24 19:11 0.05 mcg/kg/min .D23M10H PRN 10.793 mls/hr PER PROTOCOL Titration Protocol 0.05 MCG/KG/MIN Propofol 1,000 mg in 100 mls @ 3.454 mls/hr 09/13/24 22:11 09/16/24 14:00 Diprivan Ivpb IV 10/13/24 16:46 45 mcg/kg/min .Q24H PRN 31.083 mls/hr PER PROTOCOL Titration Protocol 5 MCG/KG/MIN Fentanyl Citrate 2,500 mcg in 250 mls @ 2.5 mls/hr 09/13/24 22:12 09/16/24 14:00 Sublimaze Inj 2,500 Mcg/250 Ml Bag IV 09/18/24 16:45 125 mcg/hr .Q24H PRN 12.5 mls/hr PER PROTOCOL Titration Protocol 25 MCG/HR Midazolam HCl 100 mg in 100 mls @ 1 mls/hr 09/13/24 22:12 09/16/24 14:00 Versed Pf Inj In Ns Premix IV 09/18/24 17:06 3 mg/hr .Q24H PRN 3 mls/hr PER PROTOCOL Titration Protocol 1 MG/HR Cefepime HCl 1 gm/ Sodium 50 mls @ 100 mls/hr 09/15/24 21:00 09/16/24 09:28 Chloride IV 09/17/24 15:09 Infused Q12HR EDWIN Infusion Albumin Human 25 gm in 100 mls @ 100 mls/min 09/16/24 14:12 Albuminar-25 Ivpb IV PRN PRN DIALYSIS Insulin Glargine 46 unit 09/15/24 09:00 09/16/24 09:35 Insulin Glargine (Lantus) 5 Unit/0.05 Ml (Per 5 Units) SC 10/15/24 08:59 46 unit QDAY EDWIN Administration Insulin Human Lispro 0 unit 09/14/24 00:00 09/16/24 14:02 Insulin Lispro (Admelog) 1 Unit/0.01 Ml Unit SC 10/14/24 00:00 2 unit Q6HR EDWIN Administration Protocol Insulin Human Lispro 6 unit 09/14/24 12:00 09/16/24 14:02 Insulin Lispro (Admelog) 1 Unit/0.01 Ml Unit SC 10/14/24 11:59 6 unit Q6HR EDWIN Administration Methylprednisolone Sodium Succinate 60 mg 09/12/24 21:00 09/16/24 08:57 Methylprednisolone Sod Succ 40 Mg Vial IV 09/19/24 20:59 60 mg BID EDWIN Administration Pantoprazole Sodium 40 mg 09/11/24 13:45 09/16/24 08:56 Pantoprazole Inj 40 Mg Vial IV 10/11/24 13:44 40 mg QDAY EDWIN Administration Sennosides 1 tab 09/09/24 00:06 Senna Tablet PO 10/09/24 00:05 QDAY PRN CONSTIPATION Protocol Plan 69-year-old male with past medical history of coronary artery disease and open heart surgery in 2004 for bypass surgery, gastritis/GERD, [id number] type 2 diabetes is presenting to the ED on 09/08 with worsening shortness of breath and cough, admitted to ICU for acute hypoxic respiratory failure with ARDS. Neuro: #Sedated/intubated/paralyzed -Maintain sedation and paralytics, treat underlying ARDS Cardio: #CHF #Volume overload 2/2 oligouria 2/2 ATN 2/2 Shock Patient does not have formally diagnosed history of CHF, but echo shows decreased systolic function with LVH, ejection fraction 45-50%. Patient has vascular congestion on chest x-rays. Patient was receiving Lasix, has net fluid loss 1.8 L during course of hospital admission. Currently appears mildly hypervolemic on exam, trace pedal edema, no crackles on lung auscultation. -Strict I's and O's -Started on HD 09/16- #HTN Patient history hypertension. Patient BP has been low to normal in ICU. -Hold antihypertensive medication, may resume when BP normalized #CAD s/p CABG #Aneurysmal dilatation thoracic aorta (4.8cm) Patient has history of CAD with CABG and thoracic aorta aneurysm. Med recs pending. -Resume home aspirin -Home statin held in setting of transaminitis Pulm: #AHRF 2/2 #ARDS Multifactorial: Influenza pneumonia, pulmonary edema 2/2 hypervolemia 2/2 oligouria, possible bacterial superinfection Patient presented with shortness of breath and nonproductive cough for one week, influenza positive. Patient was initially saturating well on BiPAP. Producing good urinary output. CTA ruled out pulmonary emboli. Patient not in acute respiratory distress at time of exam. Patient developed worsening hypoxic respiratory failure, requiring intubation, sedation, paralysis for ARDS Blood culture and MRSA screen negative ABG improved after proning: pH 7.15, pCO2 91, pO2 100 Chest x-ray shows bilateral pneumonia and vascular congestion -Proning as needed, 16/8 ratio. -lung protective ventilation -permissive hypercapnea -Ventilated titrate FiO2 to maintain sats greater than 88% -Tamiflu(09/09-09/19) -PO Azithromycin(09/09-09/16) -Doxycycline (09/11-09/18), initially given for possible MRSA, but continued in the setting of possible intracellular pathogens -Cefepime(09/10-09/17) for pseudomonal coverage given hx of DMII -Solumedrol 60mg IV BID stopped on 09/16 as it is not recommended in ARDS 2/2 influenza PNA -Duoneb EDWIN q4Hr -Follow up sputum culture GI: #Transaminitis DDx: Acute illness vs. MASH Patient has acutely elevated liver enzymes. No RUQ tenderness. Obesity. -Hold statins -Monitor Renal: #ATN 2/2 ischemia. Patient was hypotensive for 2 hours prior to LEWIS. Patient LEWIS is worsening, urine output has significantly decreased despite 80 mg Lasix IV. Bumex 1g IV given without improvement. 2g Bumex IV given, monitor for improvement. Nephro consulted. -Started on HD 09/16- -Monitor urinary output -Maintain MAP >65 -follow up nephro consult -avoid nephrotoxins -daily labs #Hyperkalemia 2/2 ATN with decreased UOP. Slight improvement after 1 dose Kayexelate. -Started on HD on 09/16- -Additional Kayexalate as needed -Monitor daily labs -surveillance monitor #Hyponatremia Mild hyponatremia, asymptomatic. Monitor Endo: #T2DM -ISS -Lantus 46 units -Lispro 6 units every 6 hours Heme: #Leukocytosis Multifactorial: Infection plus steroids -Monitor #Thrombocytopenia, resolved Platelets >100K, does not require transfusions. -Monitor ID: #Severe bilateral viral pneumonia -Treatment as in Pulm. Skin/MSK: #Pressure ulcers Patient has stage II pressure ulcer to sacrum, and just below the left buttock -Bandages ICU Health maintenance: Mechanical ventilation: Yes Sedation: Yes Diet: None DVT ppx: Lovenox GI ppx: Protonix Cannon: Yes IV lines: Yes Central line: Right IJ, left IJ HD catheter Arterial line: No Code status: Full code The patient's management plan was discussed with my attending physician MD Kranthi Gonsalves MD, PGY2
--- NOTE | 2024-09-16 14:56 | PC.NURSE ---
bp trending down, will adminPRN Albumin per md orders and cont. to monitor
[2024-09-16] MEDS: ALBUMIN HUMAN 25% IVPB 25 GM/100 ML BTL IV (14:57)
[2024-09-16 16:01] LABS: Hepatitis A Antibody IgM Non Reactive (Non React); Hepatitis B Core Antibody IgM Non Reactive (Non React); Hepatitis B Surface Ab NonReact(Not Immune) (Immune); Hepatitis B Surface Antigen Non Reactive (Non React); Hepatitis C Antibody Non Reactive (Non React)
--- NOTE | 2024-09-16 16:10 | PC.SS ---
Update: patient remains sedated/intubated.
[2024-09-16] MEDS: HEPARIN SOD INJ 1000 UNIT/ML VIAL 10 ML 2500 UNIT INDWELLCAT (16:43)
--- NOTE | 2024-09-16 19:41 | PC.NURSE ---
confirmed consent obtained for Dialysis line insertion, timeout complete with Dr. Le and Dr. Pereyra at the bedside, line placed at 1245
[2024-09-16] MEDS: CISATRACURIUM INJ 200 MG in SODIUM CHLORIDE 0.9% 500 ML 500 ML 26.939 MG IV (20:03)
[2024-09-17] VITALS (85 sets, daily range): BP systolic 87–140; BP diastolic 39–138; PULSE 86–102; RESP 24–37; TEMP 36.3–36.9; O2SAT 93–97; BMI 47.0
[2024-09-17] MEDS: fentaNYL 2,500 MCG/250 ML BAG 2,500 MCG/250 ML BAG 12.5 MCG IV ×2 (00:07→19:21)
[2024-09-17] MEDS: INSULIN LISPRO (AdmeLOG) 1 UNIT/0.01 ML UNIT SC ×2 (00:07→05:25)
[2024-09-17] MEDS: INSULIN LISPRO (AdmeLOG) 1 UNIT/0.01 ML UNIT 6 UNIT SC ×2 (00:08→05:26)
[2024-09-17] MEDS: ALBUTEROL/IPRATROPIUM (Duoneb) RT SOL 3 ML NEBU INH ×6 (02:19→22:23)
[2024-09-17] MEDS: PROPOFOL 1,000 MG IVPB 1,000 MG/100 ML VIAL 31.083 MG IV ×7 (03:20→23:10)
[2024-09-17 04:55] LABS: Base Excess -4 (-3-3); HCO3 26 mEq/L (20-26); Inspired Oxygen, FIO2 94 %; O2 Saturation 95 % (91-98); PCO2 69 mmHg (32.0-48.0); PO2 86 mmHg (83-108)
[2024-09-17] MEDS: Norepinephrine/D5W 8mg/250ml 8 MG/250 ML BAG 6.476 MG IV (05:00)
[2024-09-17] MEDS: MIDAZOLAM/NS 100 MG IVPB 100 MG/100 ML BAG IV (05:00)
[2024-09-17 05:02] LABS: pH, Arterial 7.18 (7.35-7.45)
[2024-09-17 05:03] LABS: Allen Test Not Performed; Puncture Site Arterial Line
--- NOTE | 2024-09-17 05:17 | PC.RT ---
Called to discuss ABG results with Dr. Chow. No new orders given.
[2024-09-17 06:29] LABS: Basophils % (Auto) 0 % (0-2.5); Eosinophils % (Auto) 0 % (0-10); Hematocrit 41.1 % (41.0-53.0); Hemoglobin 13.8 g/dL (13.5-16.0); Immature Granulocytes % (Auto) 5 % (0-0); Immature Granulocytes Auto 0.91 Thou/mm3 (0.00-0.00); Lymphocytes # (Auto) 0.4 Thou/mm3 (1.0-4.8); Lymphocytes % (Auto) 2 % (10-50); Mean Corpuscular HGB Conc 33.6 g/dl (31.0-37.0); Mean Corpuscular Hemoglobin 31.7 pg (25.0-35.0); Mean Corpuscular Volume 95 fL (80-100); Monocytes # (Auto) 0.7 Thou/mm3 (0.0-0.8); Monocytes % (Auto) 4 % (0-12); Neutrophils # (Auto) 16.3 Thou/mm3 (1.8-7.7); Neutrophils % (Auto) 89 % (37-80); Nucleated Red Blood Cell % 0 /100 WBC (0); Platelet Count 108 Thou/mm3 (140-440); RDW Standard Deviation 49.9 fL (35.1-43.9); Red Blood Count 4.35 Miln/mm3 (4.50-5.90); White Blood Count 18.4 Thou/mm3 (3.8-10.6)
[2024-09-17 07:32] LABS: Lactate (Lactic Acid) 1.6 mMol/L (0.4-2.0)
[2024-09-17 07:51] LABS: Alanine Aminotransferase 75 U/L (10-49); Albumin/Globulin Ratio 1.3 (1.2-2.2); Alkaline Phosphatase 72 U/L (46-116); Anion Gap 14 (7-16); Aspartate Amino Transferase 56 U/L (0-34); BUN/Creatinine Ratio 15 Ratio (12-20); Bilirubin,Total 0.5 mg/dL (0.3-1.2); Blood Urea Nitrogen 83 mg/dL (9-23); Calcium 8.4 mg/dL (8.3-10.6); Calcium (Corrected) 9.2 mg/dL (8.5-10.1); Carbon Dioxide 23.7 mMol/L (20.0-31.0); Chloride 98 mMol/L (98-107); Creatinine (Component) 5.5 mg/dL (0.6-1.3); Estimated Creatinine Clearance 14.3 mL/min (>60); Globulin 2.4 gm/dL (2.3-3.5); Glucose 150 mg/dL (74-106); Magnesium 2.7 mg/dL (1.6-2.6); Osmolality,Calculated 300 (275-295); Potassium 5.2 mMol/L (3.4-5.1); Sodium 136 mMol/L (136-145); Total Protein 5.4 gm/dL (5.7-8.2); eGFR 11 See Note
[2024-09-17] MEDS: BALSAM PERU/CASTOR OIL (Venelex) 60 GM TUBE TOP (08:33)
[2024-09-17] MEDS: CEFEPIME INJ 1 GM in SODIUM CHLORIDE 0.9% (P) 50 ML IV (08:33)
[2024-09-17] MEDS: ASPIRIN 81 MG CHEW GT (08:33)
[2024-09-17] MEDS: PANTOPRAZOLE INJ 40 MG VIAL IV (08:33)
[2024-09-17] MEDS: ENOXAPARIN SOD INJ 30 MG/0.3 ML SYRINGE SC (08:34)
[2024-09-17 08:48] LABS: Phosphorous 9.6 mg/dL (2.4-5.1)
--- NOTE | 2024-09-17 08:58 | PC.SS ---
Update: Patient receiving dialysis today. 2nd session. Patient is not established on out patient basis with dialysis.
[2024-09-17] MEDS: DOXYCYCLINE INJ 100 MG in SODIUM CHLORIDE 0.9% (P) 100 ML IV ×2 (09:40→20:21)
[2024-09-17] MEDS: HEPARIN SOD INJ 1000 UNIT/ML VIAL 10 ML 2500 UNIT INDWELLCAT (10:12)
[2024-09-17 10:40] LABS: Base Excess 0 (-3-3); HCO3 29 mEq/L (20-26); Inspired Oxygen, FIO2 85 %; O2 Saturation 99 % (91-98); PCO2 69 mmHg (32.0-48.0); PO2 142 mmHg (83-108); pH, Arterial 7.24 (7.35-7.45)
[2024-09-17 10:41] LABS: Allen Test Not Performed; Puncture Site Arterial Line
--- NOTE | 2024-09-17 11:00 | PC.NURSE ---
2ndHD completed for 3 hrs. Tolerated well. No fluid removal per Dr Meng. Just clearances. VS stable post tx. Report given to Renae GEORGE
--- NOTE | 2024-09-17 11:52 | PC.DIETICIAN ---
Nutrition prescription (updated) Trophic feeds of Nepro at 10 ml/hr via OG tube by pump. No water flushes. When indicated by MD: Advance 10 ml every 8 hrs to goal rate of 35 ml/hr x 24 hrs. If no IV fluids, water flushes of 25 ml/hr (or per MD).
--- NOTE | 2024-09-17 11:56 | ESPR_ITS ---
<Statement entered by Devora Le MD - 09/18/24 08:25> TOTAL CC TIME:45 MIN I saw and evaluated the patient. I reviewed the resident?s note and agree with findings and plan as documented in the resident?s note. Upon my evaluation, this patient had a high probability of imminent or life- threatening deterioration due to influenza pneumonia with ARDS and ATN requiring hemodialysis, which required my direct attention, intervention, and personal management. This time is exclusive of time spent on procedures, which are documented separately if performed. Repeat prone positioning will be planned for tomorrow morning if possible Tolerating hemodialysis and clearance only was performed today Repeat dialysis scheduled for tomorrow FiO2 requirements remain high, lung compliance is slightly worsened there has been no significant improvement unfortunately Continue full care Tube feeds has been tolerated Sedation remains at current RASS goal due to severe respiratory failure. Documentation for date of: 09/17/24 Subjective Subjective Interval history: 69-year-old male with past medical history of coronary artery disease and open heart surgery in 2004 for bypass surgery, gastritis/GERD, qin-bgeesse-wdvugrrcr type 2 diabetes is presenting to the ED on 09/08 with worsening shortness of breath and cough. Patient states that about 1 week ago his symptoms started with some mild coughing and shortness of breath which was worse with ambulation. Patient also states that during this time he started to develop subjective fevers but did not check his temperature. Patient went to his family care physician who gave him oral antibiotics and some form of injection, he was told that if his symptoms do not improve to present to the ED. Patient has extensive history of cardiac disease, last visited the social studies teacher about a year ago and states that at that time everything was fine. Symptoms continued to progress despite outpatient antibiotics, prompting ED visit. Patient was admitted to the floors, found to be positive for influenza. Chest imaging indicated severe pneumonia. Patient placed on 40 L/min O2 at 100% FiO2 with minimal improvement in saturations. Patient given breathing treatment, placed on BiPAP, and given Lasix with moderate improvement in symptoms. Patient reported using BiPAP at home for sleep apnea. The following day, patient reported mild subjective improvement in symptoms. Patient desaturated when changed to HFNC. ICU was consulted for continued respiratory distress and desaturation when off BiPAP. Patient continued to be treated on the floors using BiPAP, Duonebs, and steroids, however developed worsening hypoxia in setting of ARDS. Patient eventually was brought to ICU and proned without significant improvement, required paralytics and intubation. After sedation, patient developed hypotension requiring pressors, which was quickly weaned off. 09/14/2024: Patient seen and examined at bedside. Patient remains sedated, intubated, paralyzed due to severe ARDS. Afebrile overnight. Patient proned, will remain for 16 hours. Blood pressure stable without pressors. ABG after proning showed improvement. Patient remains notably hyperglycemic, adjusted daily insulin. 09/15/2024: Patient seen and examined at bedside. Patient sedated, intubated paralyzed. Afebrile overnight. Patient proned 16 hours overnight, supine for over 8 hours. Patient developed slight hypotension after supination, pressors initiated, titrated off. Patient FiO2 requirements increased after supination. Patient proned again for 16 hours, with improvement in FiO2 requirements. Patient urine output remains poor despite Lasix, will try Bumex. LEWIS worsening. Nephrology consulted. 09/16/2024: The patient was examined at the bedside this morning. Patient was sedated, intubated and paralyzed due to severe ARDS. He was proned for 16 hours and later placed on supine position patient. His FiO2 came down to 80 percent from 85%. Left IJ hemodialysis catheter was placed, and patient was started on hemodialysis for low urine output, in the setting of ATN. 09/17/2024: The patient was seen and examined at bedside this morning. Patient sedated, intubated, paralyzed. Remains on low levels of levophed. Plan to initiate trickle feeds. ABG showed pH 7.18, improved to 7.24 following dialysis. Kidney function worsened: BUN 83, creatinine 5.5, eGFR 11. Remains Anuric. Plan to prone 0700 tomorrow for better monitoring by day team. Will continue dialysis as needed. Exam Vital Signs Temp Pulse Resp BP Pulse Ox O2 Del Method O2 Flow Rate 97.8 F 91 36 H 106/58 L 97 Mechanical Ventilation 40 09/17/24 10:45 09/17/24 11:00 09/17/24 10:45 09/17/24 11:00 09/17/24 11:00 09/17/24 08:00 09/17/24 10:45 FiO2 85 09/17/24 10:45 Narrative Exam PE: Gen: Well-developed and well-nourished. Obese. Sedated, paralyzed, and intubated. HEENT: NCAT, PERRLA, EOMI, MMM, anicteric conjunctivae. Acanthosis nigricans. CVS: normal S1 and S2. RRR. No M/R/G. Resp: Good lung sounds, slightly diminished due to body habitus. No wheezing or crackles auscultated. Abd: soft, non-tender, non-distended. MSK: Good ROM in BUE & BLE. No rash. Trace BLE edema. Stage II pressure ulcer sacrum and just below left buttock. Neuro: Unable to obtain. Objective Labs 09/17/24 05:22 09/17/24 05:22 Labs: Laboratory Results - last 24 hr 09/16/24 09/17/24 09/17/24 05:00 04:34 05:22 WBC 18.4 H RBC 4.35 L Hgb 13.8 Hct 41.1 MCV 95 MCH 31.7 MCHC 33.6 RDW Std Deviation 49.9 H Plt Count 108 L D Neut % (Auto) 89 H Lymph % (Auto) 2 L [place] % (Auto) 4 Eos % (Auto) 0 Baso % (Auto) 0 Neut # (Auto) 16.3 H Lymph # (Auto) 0.4 L [place] # (Auto) 0.7 Eos # (Auto) 0.0 Baso # (Auto) 0.0 Immature Gran # (Auto) 0.91 H Absolute Nucleated RBC 0.00 Immature Gran % 5 H Nucleated RBC % 0 Puncture Site Arterial Line ABG pH 7.18 L* ABG pCO2 69 H ABG pO2 86 ABG HCO3 26 ABG O2 Saturation 95 ABG Base Excess -4 L FiO2 94 Sodium 136 Potassium 5.2 H Chloride 98 Carbon Dioxide 23.7 Anion Gap 14 BUN 83 H Creatinine 5.5 H* D Estim Creat Clear Calc 14.3 L eGFR 11 L* BUN/Creatinine Ratio 15 Glucose 150 H D Calculated Osmolality 300 H Lactic Acid Calcium 8.4 Corrected Calcium 9.2 Phosphorus 9.6 H Magnesium 2.7 H Total Bilirubin 0.5 AST 56 H ALT 75 H Alkaline Phosphatase 72 Total Protein 5.4 L Albumin 3.0 L Globulin 2.4 Albumin/Globulin Ratio 1.3 Hepatitis A IgM Ab Non Reactive Hep Bs Antigen Non Reactive Hep Bs Antibody NonReact(Not Immune) L Hep B Core IgM Ab Non Reactive Hepatitis C Antibody Non Reactive 09/17/24 09/17/24 07:21 10:29 WBC RBC Hgb Hct MCV MCH MCHC RDW Std Deviation Plt Count Neut % (Auto) Lymph % (Auto) [place] % (Auto) Eos % (Auto) Baso % (Auto) Neut # (Auto) Lymph # (Auto) [place] # (Auto) Eos # (Auto) Baso # (Auto) Immature Gran # (Auto) Absolute Nucleated RBC Immature Gran % Nucleated RBC % Puncture Site Arterial Line ABG pH 7.24 L ABG pCO2 69 H ABG pO2 142 H D ABG HCO3 29 H ABG O2 Saturation 99 H ABG Base Excess 0 FiO2 85 Sodium Potassium Chloride Carbon Dioxide Anion Gap BUN Creatinine Estim Creat Clear Calc eGFR BUN/Creatinine Ratio Glucose Calculated Osmolality Lactic Acid 1.6 Calcium Corrected Calcium Phosphorus Magnesium Total Bilirubin AST ALT Alkaline Phosphatase Total Protein Albumin Globulin Albumin/Globulin Ratio Hepatitis A IgM Ab Hep Bs Antigen Hep Bs Antibody Hep B Core IgM Ab Hepatitis C Antibody ABG Interpretation ABG results: 09/08/24 09/09/24 09/10/24 22:55 18:09 04:18 ABG pH 7.40 7.41 7.38 ABG pCO2 42 44 48 ABG pO2 75 L 59 L* 68 L ABG HCO3 26 28 H 29 H ABG O2 Saturation 95 90 L 93 ABG Base Excess 1 3 3 09/10/24 09/11/24 09/12/24 12:16 04:34 04:00 ABG pH 7.43 7.43 7.45 ABG pCO2 46 48 45 ABG pO2 49 L* 48 L* 55 L* ABG HCO3 30 H 32 H 31 H ABG O2 Saturation 84 L 83 L 88 L ABG Base Excess 5 H 7 H 6 H 09/13/24 09/13/24 09/13/24 13:06 17:37 22:17 ABG pH 7.45 7.26 L D 7.35 ABG pCO2 45 76 H* D 57 H D ABG pO2 53 L* 100 D 84 ABG HCO3 31 H 34 H 31 H ABG O2 Saturation 87 L 96 96 ABG Base Excess 6 H 4 H 4 H 09/14/24 09/14/24 09/14/24 04:10 06:03 06:23 ABG pH 7.11 L* D 7.09 L* 7.15 L* ABG pCO2 106 H* D 115 H* 91 H* D ABG pO2 122 H D 90 D 100 ABG HCO3 34 H 35 H 32 H ABG O2 Saturation 98 94 97 ABG Base Excess 0 0 0 09/15/24 09/15/24 09/15/24 04:44 08:45 15:00 ABG pH 7.22 L 7.19 L* 7.18 L* ABG pCO2 69 H D 72 H* 72 H* ABG pO2 67 L D 62 L 102 D ABG HCO3 29 H 27 H 27 H ABG O2 Saturation 92 89 L 98 ABG Base Excess -1 -3 -3 09/16/24 09/17/24 09/17/24 04:18 04:34 10:29 ABG pH 7.20 L 7.18 L* 7.24 L ABG pCO2 67 H 69 H 69 H ABG pO2 75 L D 86 142 H D ABG HCO3 26 26 29 H ABG O2 Saturation 94 95 99 H ABG Base Excess -4 L -4 L 0 Quality Measures Quality Measures sepsis Current suspected stage: sepsis Possible source: pulmonary Blood cultures ordered: yes Antibiotic ordered: Yes Advance care planning discussed with:: sibling Assessment & Plan Assessment Current Active Medications: Generic Name Dose Route Start Last Admin Trade Name Freq PRN Reason Stop Dose Admin Acetaminophen 650 mg 09/08/24 22:46 Acetaminophen 325 Mg Tablet PO 10/08/24 22:45 Q6H PRN Fever >101.5 Albuterol/Ipratropium 3 ml 09/08/24 23:01 Albuterol/Ipratropium (Duoneb) Rt Sanjana 3 Ml Nebu INH 10/08/24 23:00 Q2HR PRN SHORTNESS OF BREATH OR WHEEZE Albuterol/Ipratropium 3 ml 09/10/24 03:00 09/17/24 10:22 Albuterol/Ipratropium (Duoneb) Rt Sanjana 3 Ml Nebu INH 10/10/24 02:59 3 ml Q4HRRT EDWIN Administration Aspirin 81 mg 09/14/24 09:15 09/17/24 08:33 Aspirin 81 Mg Chew GT 10/14/24 09:14 81 mg QDAY EDWIN Administration Balsam [place] Oil 0 gm 09/12/24 21:00 09/17/24 08:33 Balsam [place] Oil (Venelex) 60 Gm Tube TOP 10/12/24 20:59 1 applicatio BID EDWIN Administration Benzonatate 100 mg 09/09/24 00:01 Benzonatate 100 Mg Capsule PO 10/09/24 00:14 TID PRN Cough Protocol Dextrose 25 ml 09/08/24 22:42 Dextrose 50%-Water Inj 50 Ml Syringe IV 10/08/24 22:41 Q15MIN PRN BG 50-70 responsive npo pt Dextrose 50 ml 09/08/24 22:42 Dextrose 50%-Water Inj 50 Ml Syringe IV 10/08/24 22:41 Q15MIN PRN BG <50 OR BG <70 & pt unresponsive Diclofenac Sodium 2 gm 09/11/24 15:05 09/11/24 23:06 Diclofenac 1% Top Gel 100 Gm Tube TOP 10/11/24 17:59 2 gm Q6HR PRN Administration LOCALIZED PAIN Enoxaparin Sodium 30 mg 09/15/24 21:00 09/17/24 08:34 Enoxaparin Sod Inj 30 Mg/0.3 Ml Syringe SC 09/28/24 20:59 30 mg Q12HR EDWIN Administration Glucagon 1 mg 09/08/24 22:42 Glucagon Inj 1 Mg Vial IM Q15MIN PRN BG <70, and no IV access Heparin Sodium (Beef Lung) 100 unit 09/16/24 14:15 09/16/24 14:23 Heparin Sod Lock Syr 100 Unit/Ml IV 09/30/24 13:29 Not Given DAILY [facility] Heparin Sodium (Porcine) 2,500 unit 09/16/24 14:45 09/17/24 10:12 Heparin Sod Inj 1000 Unit/Ml Vial 10 Ml INDWELLCAT 09/30/24 14:44 2,500 unit PRN PRN Administration DIALYSIS Doxycycline Hyclate 100 mg/ 100 mls @ 100 mls/hr 09/11/24 10:45 09/17/24 11:12 Sodium Chloride IV 09/18/24 10:44 Infused BID EDWIN Infusion Dexmedetomidine/Sodium Chloride 200 mcg in 50 mls @ 5.756 mls/hr 09/13/24 14:54 09/13/24 16:45 Precedex Ivpb IV 10/13/24 14:53 0 mcg/kg/hr .Q8H42M PRN 0 mls/hr Per PROTOCOL Titration Protocol 0.2 MCG/KG/HR Cisatracurium Besylate 200 mg/ 520 mls @ 17.959 mls/hr 09/13/24 19:05 09/17/24 11:00 Sodium Chloride IV 10/13/24 19:04 1.5 mcg/kg/min .Q24H PRN 26.939 mls/hr Per Protocol Titration Protocol 1 MCG/KG/MIN Norepinephrine/Dextrose 8 mg in 250 mls @ 10.793 mls/hr 09/13/24 19:12 09/17/24 11:00 Levophed In D5w 8mg/250ml IV 10/13/24 19:11 0.01 mcg/kg/min .[id number] PRN 2.159 mls/hr PER PROTOCOL Titration Protocol 0.05 MCG/KG/MIN Propofol 1,000 mg in 100 mls @ 3.454 mls/hr 09/13/24 22:11 09/17/24 11:00 Diprivan Ivpb IV 10/13/24 16:46 45 mcg/kg/min .Q24H PRN 31.083 mls/hr PER PROTOCOL Titration Protocol 5 MCG/KG/MIN Fentanyl Citrate 2,500 mcg in 250 mls @ 2.5 mls/hr 09/13/24 22:12 09/17/24 11:00 Sublimaze Inj 2,500 Mcg/250 Ml Bag IV 09/18/24 16:45 125 mcg/hr .Q24H PRN 12.5 mls/hr PER PROTOCOL Titration Protocol 25 MCG/HR Midazolam HCl 100 mg in 100 mls @ 1 mls/hr 09/13/24 22:12 09/17/24 11:00 Versed Pf Inj In Ns Premix IV 09/18/24 17:06 3 mg/hr .Q24H PRN 3 mls/hr PER PROTOCOL Titration Protocol 1 MG/HR Cefepime HCl 1 gm/ Sodium 50 mls @ 100 mls/hr 09/15/24 21:00 09/17/24 09:40 Chloride IV 09/17/24 15:09 Infused Q12HR EDWIN Infusion Albumin Human 25 gm in 100 mls @ 100 mls/min 09/16/24 14:12 09/16/24 14:57 Albuminar-25 Ivpb IV 100 mls/min PRN PRN Administration DIALYSIS Insulin Glargine 46 unit 09/15/24 09:00 09/17/24 08:31 Insulin Glargine (Lantus) 5 Unit/0.05 Ml (Per 5 Units) SC 10/15/24 08:59 Not Given QDAY EDWIN Insulin Human Lispro 0 unit 09/14/24 00:00 09/17/24 05:25 Insulin Lispro (Admelog) 1 Unit/0.01 Ml Unit SC 10/14/24 00:00 2 unit Q6HR EDWIN Administration Protocol Insulin Human Lispro 6 unit 09/14/24 12:00 09/17/24 05:26 Insulin Lispro (Admelog) 1 Unit/0.01 Ml Unit SC 10/14/24 11:59 6 unit Q6HR EDWIN Administration Pantoprazole Sodium 40 mg 09/11/24 13:45 09/17/24 08:33 Pantoprazole Inj 40 Mg Vial IV 10/11/24 13:44 40 mg QDAY EDWIN Administration Sennosides 1 tab 09/09/24 00:06 Senna Tablet PO 10/09/24 00:05 QDAY PRN CONSTIPATION Protocol Plan 69-year-old male with past medical history of coronary artery disease and open heart surgery in 2004 for bypass surgery, gastritis/GERD, oow-ozjcekl-pdknphgnp type 2 diabetes is presenting to the ED on 09/08 with worsening shortness of breath and cough, admitted to ICU for acute hypoxic respiratory failure with ARDS. Neuro: #Sedated/intubated/paralyzed -Maintain sedation and paralytics, treat underlying ARDS Cardio: #CHF #Volume overload 2/2 oligouria 2/2 ATN 2/2 Shock Patient does not have formally diagnosed history of CHF, but echo shows decreased systolic function with LVH, ejection fraction 45-50%. Patient has vascular congestion on chest x-rays. Patient was receiving Lasix, has net fluid loss 1.8 L during course of hospital admission. Currently appears mildly hypervolemic on exam, trace pedal edema, no crackles on lung auscultation. Output did not improve with Lasix or Bumex. -Strict I's and O's -Started on HD 09/16- #Hypotension Likely due to volume overload. Patient requiring pressors. -titrate levophed to maintain MAP >65 -do not advance tube feeds until pressors titrated off #HTN Patient history hypertension. Patient BP has been low to normal in ICU. -Hold antihypertensive medication, may resume when BP normalized #CAD s/p CABG #Aneurysmal dilatation thoracic aorta (4.8cm) Patient has history of CAD with CABG and thoracic aorta aneurysm. Med recs pending. -Resume home aspirin -Home statin held in setting of transaminitis Pulm: #AHRF 2/2 #ARDS Multifactorial: Influenza pneumonia, pulmonary edema 2/2 hypervolemia 2/2 oligouria, possible bacterial superinfection Patient presented with shortness of breath and nonproductive cough for one week, influenza positive. Patient was initially saturating well on BiPAP. Producing good urinary output. CTA ruled out pulmonary emboli. Patient not in acute respiratory distress at time of exam. Patient developed worsening hypoxic respiratory failure, requiring intubation, sedation, paralysis for ARDS Blood culture and MRSA screen negative ABG improved after proning: pH 7.15, pCO2 91, pO2 100 Chest x-ray shows bilateral pneumonia and vascular congestion -Proning as needed, 16/8 ratio. -lung protective ventilation -permissive hypercapnea -Ventilated, titrate FiO2 to maintain sats greater than 88% -Tamiflu(09/09-09/19) -PO Azithromycin(09/09-09/16) -Doxycycline (09/11-09/18), initially given for possible MRSA, but continued in the setting of possible intracellular pathogens -Cefepime(09/10-09/17) for pseudomonal coverage given hx of DMII -Solumedrol 60mg IV BID stopped on 09/16 as it is not recommended in ARDS 2/2 influenza PNA -Duoneb [facility] q4Hr -Follow up sputum culture GI: #Transaminitis DDx: Acute illness vs. MASH Patient has acutely elevated liver enzymes. No RUQ tenderness. Obesity. -Hold statins -Monitor #Tube feeds Will start trickle feeds -do not advance feeds until patient off pressors -dietary consult appreciated Renal: #ATN 2/2 ischemia. Patient was hypotensive for 2 hours prior to LEWIS. Patient LEWIS is worsening, urine output has significantly decreased despite 80 mg Lasix IV. Bumex 1g IV given without improvement. 2g Bumex IV given, monitor for improvement. Nephro consulted. Patient remained anuric with lasix and with bumex. Temp. dialysis cath placed L IJ, HD intiated. -Started on HD 09/16- -Monitor urinary output -Maintain MAP >65 -nephro consult appreciated -avoid nephrotoxins -daily labs #Hyperkalemia 2/2 ATN with decreased UOP. Slight improvement after 1 dose Kayexelate. -Started on HD on 09/16- -Additional Kayexalate as needed -Monitor daily labs -vehicle monitor technician #Hyponatremia-resolved Mild hyponatremia, asymptomatic. -Monitor Endo: #T2DM -ISS -Lantus 46 units -Lispro 6 units every 6 hours Heme: #Leukocytosis Multifactorial: Infection plus steroids -Monitor #Thrombocytopenia, resolved Platelets >100K, does not require transfusions. -Monitor ID: #Severe bilateral viral pneumonia -Treatment as in Pulm. Skin/MSK: #Pressure ulcers Patient has stage II pressure ulcer to sacrum, and just below the left buttock -Bandages ICU Health maintenance: Mechanical ventilation: Yes Sedation: Yes Diet: None DVT ppx: Heparin GI ppx: Protonix Cannon: Yes IV lines: Yes Central line: Right IJ, left IJ HD catheter Arterial line: No Code status: Full code The patient's management plan was discussed with my attending physician MD Anthony Gonsalves MD PGY-1
--- NOTE | 2024-09-17 14:24 | PC.NURSE ---
Dr. Griffin ordered tropic feeding for patient. Currently on the floor there is no feeding pumps and unable to start feeding. charge nurse Daiana mcdaniel MD aware that feeding can not start due to lack of feeding pump.
--- NOTE | 2024-09-17 15:15 | PD.RESPRO ---
Documentation for date of: 09/17/24 Subjective Subjective Interval history: Patient currently seen in ICU. On ventilator. History was taken based on chart review and information from the ICU team. Per resident note-Mr. Joel is a 69-year-old morbidly obese gentleman with past medical history significant for coronary artery disease s/p CABG in 2004, diabetes type 2, GERD, hypertension, dyslipidemia presented to the emergency department shortness of breath and coughing along with fevers and noted to have flu/bilateral extensive pneumonia. Initially was admitted to floor and subsequently due to hypoxic respiratory failure was transferred to ICU and intubated. In ICU- developed worsening hypoxia in setting of ARDS. Patient currently in prone ventilation, requiring paralytics and sedation. 09/15/2024: Patient currently seen in ICU. In prone ventilation. Labs reviewed. Urine output very poor despite diuretics. Creatinine getting worse. Spoke to Dr. Cornejo-if no improvement in renal function he might need renal replacement therapy in the next 1 to 2 days. 09/16/2024: Patient seen on the bedside in the ICU. In the supine position today, was proned yesterday. Continues to be paralyzed and sedated on mechanical ventilation, FiO2 85%, SaO2 95%. Received bumetanide yesterday, urine output continues to be minimal 5-10 ml despite the fluid intake of almost 2L. Labs showed sodium 136, potassium 5.1, bicarb 23.1, BUN 78, creatinine 4.8, EGFR 13. Kidney functions continue to worsen in the last few days, continues to be anuric, patient is is requiring dialysis. Temporary dialysis catheter was placed today. 09/17/2024: Patient seen on the bedside in the ICU. Patient had a dialysis session 09/16/24. Continues to be paralyzed and sedated on mechanical ventilation, FiO2 85%, SaO2 95%. Received bumetanide yesterday, urine output continues to be minimal 5-10 ml despite the fluid intake of almost 2L. Labs showed sodium 136, potassium 5.2, bicarb 23.7, BUN 83, creatinine 5.5, EGFR 11. Kidney functions continue to worsen in the last few days, continues to be anuric, patient is is requiring dialysis today again. Exam Vital Signs Temp Pulse Resp BP Pulse Ox O2 Del Method O2 Flow Rate 98.2 F 95 36 H 93/52 L 94 L Mechanical Ventilation 40 09/17/24 12:00 09/17/24 14:21 09/17/24 14:21 09/17/24 14:21 09/17/24 14:21 09/17/24 12:00 09/17/24 10:45 FiO2 85 09/17/24 14:21 Narrative Exam Physical Exam General: Sedated, paralyzed on mechanical ventilation. In supine position. HEENT: Normocephalic, atraumatic, mucous membranes moist. Heart: Regular rate and rhythm, no murmurs. Lungs: Clear to auscultation with no wheezing or crackles. Abdomen: Soft, nondistended, nontender, positive bowel sounds. ?No guarding or rebound tenderness. Neurologic: Impossible to assess patient is paralyzed and sedated. Extremities: Mild ankle edema. Skin: No rash or ecchymoses. Objective Labs 09/17/24 05:22 09/17/24 05:22 Labs: Laboratory Results - last 24 hr 09/16/24 09/17/24 09/17/24 05:00 04:34 05:22 WBC 18.4 H RBC 4.35 L Hgb 13.8 Hct 41.1 MCV 95 MCH 31.7 MCHC 33.6 RDW Std Deviation 49.9 H Plt Count 108 L D Neut % (Auto) 89 H Lymph % (Auto) 2 L [place] % (Auto) 4 Eos % (Auto) 0 Baso % (Auto) 0 Neut # (Auto) 16.3 H Lymph # (Auto) 0.4 L [place] # (Auto) 0.7 Eos # (Auto) 0.0 Baso # (Auto) 0.0 Immature Gran # (Auto) 0.91 H Absolute Nucleated RBC 0.00 Immature Gran % 5 H Nucleated RBC % 0 Puncture Site Arterial Line ABG pH 7.18 L* ABG pCO2 69 H ABG pO2 86 ABG HCO3 26 ABG O2 Saturation 95 ABG Base Excess -4 L FiO2 94 Sodium 136 Potassium 5.2 H Chloride 98 Carbon Dioxide 23.7 Anion Gap 14 BUN 83 H Creatinine 5.5 H* D Estim Creat Clear Calc 14.3 L eGFR 11 L* BUN/Creatinine Ratio 15 Glucose 150 H D Calculated Osmolality 300 H Lactic Acid Calcium 8.4 Corrected Calcium 9.2 Phosphorus 9.6 H Magnesium 2.7 H Total Bilirubin 0.5 AST 56 H ALT 75 H Alkaline Phosphatase 72 Total Protein 5.4 L Albumin 3.0 L Globulin 2.4 Albumin/Globulin Ratio 1.3 Hepatitis A IgM Ab Non Reactive Hep Bs Antigen Non Reactive Hep Bs Antibody NonReact(Not Immune) L Hep B Core IgM Ab Non Reactive Hepatitis C Antibody Non Reactive 09/17/24 09/17/24 07:21 10:29 WBC RBC Hgb Hct MCV MCH MCHC RDW Std Deviation Plt Count Neut % (Auto) Lymph % (Auto) [place] % (Auto) Eos % (Auto) Baso % (Auto) Neut # (Auto) Lymph # (Auto) [place] # (Auto) Eos # (Auto) Baso # (Auto) Immature Gran # (Auto) Absolute Nucleated RBC Immature Gran % Nucleated RBC % Puncture Site Arterial Line ABG pH 7.24 L ABG pCO2 69 H ABG pO2 142 H D ABG HCO3 29 H ABG O2 Saturation 99 H ABG Base Excess 0 FiO2 85 Sodium Potassium Chloride Carbon Dioxide Anion Gap BUN Creatinine Estim Creat Clear Calc eGFR BUN/Creatinine Ratio Glucose Calculated Osmolality Lactic Acid 1.6 Calcium Corrected Calcium Phosphorus Magnesium Total Bilirubin AST ALT Alkaline Phosphatase Total Protein Albumin Globulin Albumin/Globulin Ratio Hepatitis A IgM Ab Hep Bs Antigen Hep Bs Antibody Hep B Core IgM Ab Hepatitis C Antibody ABG Interpretation ABG results: 09/08/24 09/09/24 09/10/24 22:55 18:09 04:18 ABG pH 7.40 7.41 7.38 ABG pCO2 42 44 48 ABG pO2 75 L 59 L* 68 L ABG HCO3 26 28 H 29 H ABG O2 Saturation 95 90 L 93 ABG Base Excess 1 3 3 09/10/24 09/11/24 09/12/24 12:16 04:34 04:00 ABG pH 7.43 7.43 7.45 ABG pCO2 46 48 45 ABG pO2 49 L* 48 L* 55 L* ABG HCO3 30 H 32 H 31 H ABG O2 Saturation 84 L 83 L 88 L ABG Base Excess 5 H 7 H 6 H 09/13/24 09/13/24 09/13/24 13:06 17:37 22:17 ABG pH 7.45 7.26 L D 7.35 ABG pCO2 45 76 H* D 57 H D ABG pO2 53 L* 100 D 84 ABG HCO3 31 H 34 H 31 H ABG O2 Saturation 87 L 96 96 ABG Base Excess 6 H 4 H 4 H 09/14/24 09/14/24 09/14/24 04:10 06:03 06:23 ABG pH 7.11 L* D 7.09 L* 7.15 L* ABG pCO2 106 H* D 115 H* 91 H* D ABG pO2 122 H D 90 D 100 ABG HCO3 34 H 35 H 32 H ABG O2 Saturation 98 94 97 ABG Base Excess 0 0 0 09/15/24 09/15/24 09/15/24 04:44 08:45 15:00 ABG pH 7.22 L 7.19 L* 7.18 L* ABG pCO2 69 H D 72 H* 72 H* ABG pO2 67 L D 62 L 102 D ABG HCO3 29 H 27 H 27 H ABG O2 Saturation 92 89 L 98 ABG Base Excess -1 -3 -3 09/16/24 09/17/24 09/17/24 04:18 04:34 10:29 ABG pH 7.20 L 7.18 L* 7.24 L ABG pCO2 67 H 69 H 69 H ABG pO2 75 L D 86 142 H D ABG HCO3 26 26 29 H ABG O2 Saturation 94 95 99 H ABG Base Excess -4 L -4 L 0 Quality Measures Quality Measures sepsis Current suspected stage: sepsis Possible source: pulmonary Blood cultures ordered: yes Antibiotic ordered: Yes Advance care planning discussed with:: other Assessment & Plan Assessment Current Active Medications: Generic Name Dose Route Start Last Admin Trade Name Freq PRN Reason Stop Dose Admin Acetaminophen 650 mg 09/08/24 22:46 Acetaminophen 325 Mg Tablet PO 10/08/24 22:45 Q6H PRN Fever >101.5 Albuterol/Ipratropium 3 ml 09/08/24 23:01 Albuterol/Ipratropium (Duoneb) Rt Sanjana 3 Ml Nebu INH 10/08/24 23:00 Q2HR PRN SHORTNESS OF BREATH OR WHEEZE Albuterol/Ipratropium 3 ml 09/10/24 03:00 09/17/24 15:00 Albuterol/Ipratropium (Duoneb) Rt Sanjana 3 Ml Nebu INH 10/10/24 02:59 Not Given Q4HRRT EDWIN Aspirin 81 mg 09/14/24 09:15 09/17/24 08:33 Aspirin 81 Mg Chew GT 10/14/24 09:14 81 mg QDAY EDWIN Administration Balsam Wade/Novice Oil 0 gm 09/12/24 21:00 09/17/24 08:33 Balsam Wade/Novice Oil (Venelex) 60 Gm Tube TOP 10/12/24 20:59 1 applicatio BID EDWIN Administration Benzonatate 100 mg 09/09/24 00:01 Benzonatate 100 Mg Capsule PO 10/09/24 00:14 TID PRN Cough Protocol Dextrose 25 ml 09/08/24 22:42 Dextrose 50%-Water Inj 50 Ml Syringe IV 10/08/24 22:41 Q15MIN PRN BG 50-70 responsive npo pt Dextrose 50 ml 09/08/24 22:42 Dextrose 50%-Water Inj 50 Ml Syringe IV 10/08/24 22:41 Q15MIN PRN BG <50 OR BG <70 & pt unresponsive Diclofenac Sodium 2 gm 09/11/24 15:05 09/11/24 23:06 Diclofenac 1% Top Gel 100 Gm Tube TOP 10/11/24 17:59 2 gm Q6HR PRN Administration LOCALIZED PAIN Glucagon 1 mg 09/08/24 22:42 Glucagon Inj 1 Mg Vial IM Q15MIN PRN BG <70, and no IV access Heparin Sodium (Porcine) 2,500 unit 09/16/24 14:45 09/17/24 10:12 Heparin Sod Inj 1000 Unit/Ml Vial 10 Ml INDWELLCAT 09/30/24 14:44 2,500 unit PRN PRN Administration DIALYSIS Heparin Sodium (Porcine) 5,000 unit 09/18/24 06:00 Heparin Sod Inj 5000 Unit/Ml Vial SC 10/02/24 05:59 Q8HR EDWIN Doxycycline Hyclate 100 mg/ 100 mls @ 100 mls/hr 09/11/24 10:45 09/17/24 11:12 Sodium Chloride IV 09/18/24 10:44 Infused BID EDWIN Infusion Dexmedetomidine/Sodium Chloride 200 mcg in 50 mls @ 5.756 mls/hr 09/13/24 14:54 09/13/24 16:45 Precedex Ivpb IV 10/13/24 14:53 0 mcg/kg/hr .Q8H42M PRN 0 mls/hr Per PROTOCOL Titration Protocol 0.2 MCG/KG/HR Cisatracurium Besylate 200 mg/ 520 mls @ 17.959 mls/hr 09/13/24 19:05 09/17/24 13:00 Sodium Chloride IV 10/13/24 19:04 1.5 mcg/kg/min .Q24H PRN 26.939 mls/hr Per Protocol Titration Protocol 1 MCG/KG/MIN Norepinephrine/Dextrose 8 mg in 250 mls @ 10.793 mls/hr 09/13/24 19:12 09/17/24 13:00 Levophed In D5w 8mg/250ml IV 10/13/24 19:11 0.01 mcg/kg/min .S80Q58P PRN 2.159 mls/hr PER PROTOCOL Titration Protocol 0.05 MCG/KG/MIN Propofol 1,000 mg in 100 mls @ 3.454 mls/hr 09/13/24 22:11 09/17/24 13:00 Diprivan Ivpb IV 10/13/24 16:46 45 mcg/kg/min .Q24H PRN 31.083 mls/hr PER PROTOCOL Administration Protocol 5 MCG/KG/MIN Fentanyl Citrate 2,500 mcg in 250 mls @ 2.5 mls/hr 09/13/24 22:12 09/17/24 13:00 Sublimaze Inj 2,500 Mcg/250 Ml Bag IV 09/18/24 16:45 125 mcg/hr .Q24H PRN 12.5 mls/hr PER PROTOCOL Titration Protocol 25 MCG/HR Midazolam HCl 100 mg in 100 mls @ 1 mls/hr 09/13/24 22:12 09/17/24 13:00 Versed Pf Inj In Ns Premix IV 09/18/24 17:06 3 mg/hr .Q24H PRN 3 mls/hr PER PROTOCOL Titration Protocol 1 MG/HR Albumin Human 25 gm in 100 mls @ 100 mls/min 09/16/24 14:12 09/16/24 14:57 Albuminar-25 Ivpb IV 100 mls/min PRN PRN Administration DIALYSIS Insulin Glargine 46 unit 09/15/24 09:00 09/17/24 08:31 Insulin Glargine (Lantus) 5 Unit/0.05 Ml (Per 5 Units) SC 10/15/24 08:59 Not Given QDAY EDIWN Insulin Human Lispro 0 unit 09/14/24 00:00 09/17/24 12:51 Insulin Lispro (Admelog) 1 Unit/0.01 Ml Unit SC 10/14/24 00:00 Not Given Q6HR EDWIN Protocol Insulin Human Lispro 6 unit 09/14/24 12:00 09/17/24 12:00 Insulin Lispro (Admelog) 1 Unit/0.01 Ml Unit SC 10/14/24 11:59 Not Given Q6HR EDWIN Pantoprazole Sodium 40 mg 09/11/24 13:45 09/17/24 08:33 Pantoprazole Inj 40 Mg Vial IV 10/11/24 13:44 40 mg QDAY EDWIN Administration Pharmacy Consult 1 each 09/17/24 12:06 Pharmacy Renal Dose Adjustment 1 Ea XX 10/17/24 12:05 PRN PRN CONSULT Sennosides 1 tab 09/09/24 00:06 Senna Tablet PO 10/09/24 00:05 QDAY PRN CONSTIPATION Protocol Plan The patient is a 69-year-old morbidly obese gentleman with past medical history significant for coronary artery disease s/p CABG in 2004, diabetes type 2, GERD, hypertension, dyslipidemia presented to the emergency department shortness of breath and coughing along with fevers and noted to have flu/bilateral extensive pneumonia. Initially was admitted to floor and subsequently due to hypoxic respiratory failure was transferred to ICU and intubated. Nephrology was consulted due to LEWIS and dialysis. #LEWIS- ATN #Hyperkalemia #Hyperphosphatemia Most likely ATN in the setting of of shock and prolonged hypotension. 09/15/24: Patient was put in the prone position due to acute hypoxic respiratory failure and ARDS. Daily urine output 0.4 L. Bumex 1 mg once and Bumex 2 mg once was given, patient continues to have poor urine output. Patient received kayexalate 30 g once. 09/16/2024: Patient continues to have poor urine output 5 to 10 mL/h. Labs showed sodium 136, potassium 5.1, bicarb 23.1, BUN 78, creatinine 4.8, EGFR 13. Temporary dialysis catheter was placed. Patient would require dialysis due to his kidney failure. Plan: ?Monitor daily CMP ? Avoid nephrotoxic agents ? Maintain MAP above 65 ? Renally dose medications ? Emergent dialysis #Congestive heart failure #HTN #CAD s/p CABG #AHRF #ARDS #Transaminitis #T2DM #Leukocytosis #Thrombocytopenia #Severe bilateral viral pneumonia #Pressure ulcers - Management as per primary team Plan of care discussed with attending Dr. Meng. Benita Donald MD, PGY 1. Attending Provider Attestation/Addendum Patient seen and examined with resident physician, Dr. Joy. Note reviewed, agree with findings and recommendations. Critical care time spent > 35 min- POC, mgmt Worsening azotemia with no UOP. Decided to proceed with dialysis. Vascath placed by ICU team. Will start Conventional dialysis. CRRT not available. Patient currently seen on dialysis. Tolerating dialysis without any problems. Hemodialysis for 3 hours, qb 250, 2K, ultrafiltration 1 L, Epogen 6000, no heparin ordered. Plan of care discussed with the dialysis nurse. Please see dialysis flowsheet for further details. Next dialysis scheduled for tomorrow
[2024-09-17] MEDS: CISATRACURIUM INJ 200 MG in SODIUM CHLORIDE 0.9% 500 ML 500 ML 26.939 MG IV (16:22)
--- NOTE | 2024-09-17 16:28 | PC.NURSE ---
Adrienne GEORGE from infection prevention notified me that patient has had his 7 day treatment for influenza and it was upto MD if they choose to stop isolation or continue. I spoke with Dr. Hutton and he wants to continue isolation for now.
[2024-09-17] MEDS: SEVELAMER CARBONATE 0.8 GM PACKET (NON-FORMULARY) NG (17:34)
[2024-09-17 19:48] LABS: HIV (1&2) Antibody Rapid Non-Reactive
[2024-09-18] VITALS (103 sets, daily range): BP systolic 72–158; BP diastolic 40–92; PULSE 89–159; RESP 26–37; TEMP 36.5–37.5; O2SAT 84–99
[2024-09-18] MEDS: ALBUTEROL/IPRATROPIUM (Duoneb) RT SOL 3 ML NEBU INH ×6 (02:03→22:22)
[2024-09-18] MEDS: PROPOFOL 1,000 MG IVPB 1,000 MG/100 ML VIAL 31.083 MG IV ×7 (03:00→23:27)
[2024-09-18 04:21] LABS: Base Excess -4 (-3-3); HCO3 26 mEq/L (20-26); Inspired Oxygen, FIO2 100 %; O2 Saturation 95 % (91-98); PCO2 75 mmHg (32.0-48.0); PO2 86 mmHg (83-108)
[2024-09-18 04:28] LABS: Puncture Site Arterial Line; pH, Arterial 7.16 (7.35-7.45)
[2024-09-18 04:29] LABS: Allen Test Not Performed
--- NOTE | 2024-09-18 04:38 | PC.RT ---
MEGAN RATLIFF reported to Dr. Chow, per MD no vent changes to be done at this time.
[2024-09-18] MEDS: HEPARIN SOD INJ 5000 UNIT/ML VIAL SC ×3 (05:52→21:22)
[2024-09-18 06:07] LABS: Basophils # (Auto) 0.1 Thou/mm3 (0.0-0.2); Basophils % (Auto) 0 % (0-2.5); Eosinophils # (Auto) 0.1 Thou/mm3 (0.0-0.5); Eosinophils % (Auto) 1 % (0-10); Hematocrit 42.7 % (41.0-53.0); Hemoglobin 14.2 g/dL (13.5-16.0); Immature Granulocytes % (Auto) 6 % (0-0); Immature Granulocytes Auto 1.51 Thou/mm3 (0.00-0.00); Lymphocytes # (Auto) 0.6 Thou/mm3 (1.0-4.8); Lymphocytes % (Auto) 3 % (10-50); Mean Corpuscular HGB Conc 33.3 g/dl (31.0-37.0); Mean Corpuscular Hemoglobin 31.8 pg (25.0-35.0); Mean Corpuscular Volume 96 fL (80-100); Monocytes # (Auto) 0.8 Thou/mm3 (0.0-0.8); Monocytes % (Auto) 3 % (0-12); Neutrophils # (Auto) 21.7 Thou/mm3 (1.8-7.7); Neutrophils % (Auto) 87 % (37-80); Nucleated Red Blood Cell # 0.02 Thou/mm3 (0.00-0.00); Nucleated Red Blood Cell % 0 /100 WBC (0); Platelet Count 83 Thou/mm3 (140-440); RDW Standard Deviation 50.6 fL (35.1-43.9); Red Blood Count 4.46 Miln/mm3 (4.50-5.90)
[2024-09-18 06:14] LABS: White Blood Count 24.9 Thou/mm3 (3.8-10.6)
[2024-09-18 06:46] LABS: Alanine Aminotransferase 81 U/L (10-49); Albumin/Globulin Ratio 1.4 (1.2-2.2); Alkaline Phosphatase 100 U/L (46-116); Anion Gap 11 (7-16); Aspartate Amino Transferase 59 U/L (0-34); BUN/Creatinine Ratio 15 Ratio (12-20); Bilirubin,Total 0.8 mg/dL (0.3-1.2); Blood Urea Nitrogen 79 mg/dL (9-23); Calcium (Corrected) 8.8 mg/dL (8.5-10.1); Carbon Dioxide 23.9 mMol/L (20.0-31.0); Chloride 97 mMol/L (98-107); Creatinine (Component) 5.4 mg/dL (0.6-1.3); Estimated Creatinine Clearance 14.6 mL/min (>60); Globulin 2.2 gm/dL (2.3-3.5); Glucose 122 mg/dL (74-106); Magnesium 2.4 mg/dL (1.6-2.6); Osmolality,Calculated 289 (275-295); Potassium 4.7 mMol/L (3.4-5.1); Sodium 132 mMol/L (136-145); Total Protein 5.2 gm/dL (5.7-8.2); eGFR 11 See Note
[2024-09-18 07:04] LABS: Phosphorous 9.2 mg/dL (2.4-5.1)
[2024-09-18] MEDS: SODIUM BICARB INJ 8.4% 1 mEq/ML VIAL 50 ML 50 MEQ IV (07:07)
--- NOTE | 2024-09-18 07:48 | PC.NURSE ---
Levophed increased by DORIS Macdonald.
[2024-09-18] MEDS: MIDAZOLAM/NS 100 MG IVPB 100 MG/100 ML BAG IV (07:49)
[2024-09-18] MEDS: ALBUMIN HUMAN 25% IVPB 25 GM/100 ML BTL IV (08:01)
--- NOTE | 2024-09-18 08:01 | PC.NURSE ---
BP dropped, UF off, albumin 25% given IVP.
--- NOTE | 2024-09-18 08:03 | PC.NURSE ---
UF back on, Levophed increase by DORIS Macdonald.
--- NOTE | 2024-09-18 08:07 | PC.NURSE ---
HR increased to 150s, Goal decreased to 1.0 L and QB decreased to 250.
[2024-09-18] MEDS: Norepinephrine/D5W 8mg/250ml 8 MG/250 ML BAG 32.378 MG IV (08:20)
--- NOTE | 2024-09-18 08:26 | PC.NURSE ---
Levophed increased by DORIS Macdonald.
--- NOTE | 2024-09-18 08:37 | PC.NURSE ---
Dr Meng called and informed Pt. keeps going into Afib, RVR. Ordered to stop UF and decrease Qb 200.
--- NOTE | 2024-09-18 09:01 | PC.NURSE ---
Dr. Abraham decided to stop HD as pts heart rate increased.
[2024-09-18] MEDS: AMIODARONE 150 MG IVPB 150 MG/100 ML BAG 600 MG IV (09:04)
[2024-09-18] MEDS: HEPARIN SOD INJ 1000 UNIT/ML VIAL 10 ML 2500 UNIT INDWELLCAT (09:11)
[2024-09-18] MEDS: AMIODARONE 360 MG IVPB 360 MG/200 ML BAG 33.333 MG IV (09:28)
--- NOTE | 2024-09-18 10:06 | PC.SS ---
Update: Patient participating with dialysis today. Dialysis stopped due to patient's increased heart rate.
[2024-09-18] MEDS: DOXYCYCLINE INJ 100 MG in SODIUM CHLORIDE 0.9% (P) 100 ML IV (10:20)
[2024-09-18] MEDS: BALSAM PERU/CASTOR OIL (Venelex) 60 GM TUBE TOP ×3 (10:21→20:28)
[2024-09-18] MEDS: ASPIRIN 81 MG CHEW GT (10:21)
[2024-09-18] MEDS: PANTOPRAZOLE INJ 40 MG VIAL IV (10:21)
[2024-09-18] MEDS: SEVELAMER CARBONATE 0.8 GM PACKET (NON-FORMULARY) NG ×2 (10:21→16:31)
--- NOTE | 2024-09-18 10:36 | PC.RT ---
reduced fio2 to 75%
[2024-09-18] MEDS: INSULIN LISPRO (AdmeLOG) 1 UNIT/0.01 ML UNIT SC (11:38)
[2024-09-18] MEDS: INSULIN LISPRO (AdmeLOG) 1 UNIT/0.01 ML UNIT 6 UNIT SC (11:38)
[2024-09-18] MEDS: Norepinephrine/NS 16mg/250ml 16 MG/250 ML BAG 42.961 MG IV (13:20)
--- NOTE | 2024-09-18 13:42 | EKG_ITS ---
[facility] Test Date: 2024-09-18 Pat Name: SAMARA ALFARO Department: Room: S255A Gender: Male Hide Salter: BEE : 1955 Requested By: Anthony Schaffer Order Number: [id number] Reading MD: Anthony Schaffer Measurements Intervals Gracey Rate: 97 P: KS: QRS: -62 QRSD: 181 T: 49 QT: 412 QTc: 524 Interpretive Statements UNCERTAIN IRREGULAR RHYTHM RIGHT BUNDLE BRANCH BLOCK INFERIOR MYOCARDIAL INFARCTION , POSSIBLY ACUTE ACUTE HI Compared to ECG 09/08/2024 19:15:13 Right bundle-branch block now present Myocardial infarct finding now present Sinus rhythm no longer present Left anterior fascicular block no longer present /store/S0/[id number]
[2024-09-18] MEDS: VASOPRESSIN IN NS IVPB 20 UNIT/100 ML BAG 9 UNIT IV ×2 (13:53→23:31)
--- NOTE | 2024-09-18 14:05 | ESPR_ITS ---
<Statement entered by Devora Le MD - 09/19/24 14:23> TOTAL CC TIME: 45 MIN TOTAL TIME: 45MINUTES ON DIRECT MEDICAL CARE, MANAGEMENT - COORDINATION AND COUNSELING > 50% OF TOTAL TIME I saw and evaluated the patient. I reviewed the resident?s note and agree with findings and plan as documented in the resident?s note. Upon my evaluation, this patient had a high probability of imminent or life- threatening deterioration due to persistent severe acute hypoxic respiratory failure which required my direct attention, intervention, and personal management. This time is exclusive of time spent on procedures, which are documented separately if performed. Patient developed SVT during hemodialysis and has trouble tolerating dialysis. Pressor requirements are going up and this may be related to his intolerance of hemodialysis and response with SVT. Amiodarone was started. If he develops fevers or becomes more hemodynamically unstable we will have to consider restarting broad-spectrum antibiotics obtaining a new echocardiogram and new blood cultures. Prognosis remains poor Documentation for date of: 09/18/24 Subjective Subjective Interval history: 69-year-old male with past medical history of coronary artery disease and open heart surgery in 2004 for bypass surgery, gastritis/GERD, [id number] type 2 diabetes is presenting to the ED on 09/08 with worsening shortness of breath and cough. Patient states that about 1 week ago his symptoms started with some mild coughing and shortness of breath which was worse with ambulation. Patient also states that during this time he started to develop subjective fevers but did not check his temperature. Patient went to his family care physician who gave him oral antibiotics and some form of injection, he was told that if his symptoms do not improve to present to the ED. Patient has extensive history of cardiac disease, last visited the bacteriologist fishery about a year ago and states that at that time everything was fine. Symptoms continued to progress despite outpatient antibiotics, prompting ED visit. Patient was admitted to the floors, found to be positive for influenza. Chest imaging indicated severe pneumonia. Patient placed on 40 L/min O2 at 100% FiO2 with minimal improvement in saturations. Patient given breathing treatment, placed on BiPAP, and given Lasix with moderate improvement in symptoms. Patient reported using BiPAP at home for sleep apnea. The following day, patient reported mild subjective improvement in symptoms. Patient desaturated when changed to HFNC. ICU was consulted for continued respiratory distress and desaturation when off BiPAP. Patient continued to be treated on the floors using BiPAP, Duonebs, and steroids, however developed worsening hypoxia in setting of ARDS. Patient eventually was brought to ICU and proned without significant improvement, required paralytics and intubation. After sedation, patient developed hypotension requiring pressors, which was quickly weaned off. 09/14/2024: Patient seen and examined at bedside. Patient remains sedated, intubated, paralyzed due to severe ARDS. Afebrile overnight. Patient proned, will remain for 16 hours. Blood pressure stable without pressors. ABG after proning showed improvement. Patient remains notably hyperglycemic, adjusted daily insulin. 09/15/2024: Patient seen and examined at bedside. Patient sedated, intubated paralyzed. Afebrile overnight. Patient proned 16 hours overnight, supine for over 8 hours. Patient developed slight hypotension after supination, pressors initiated, titrated off. Patient FiO2 requirements increased after supination. Patient proned again for 16 hours, with improvement in FiO2 requirements. Patient urine output remains poor despite Lasix, will try Bumex. LEWIS worsening. Nephrology consulted. 09/16/2024: The patient was examined at the bedside this morning. Patient was sedated, intubated and paralyzed due to severe ARDS. He was proned for 16 hours and later placed on supine position patient. His FiO2 came down to 80 percent from 85%. Left IJ hemodialysis catheter was placed, and patient was started on hemodialysis for low urine output, in the setting of ATN. 09/17/2024: The patient was seen and examined at bedside this morning. Patient sedated, intubated, paralyzed. Remains on low levels of levophed. Plan to initiate trickle feeds. ABG showed pH 7.18, improved to 7.24 following dialysis. Kidney function worsened: BUN 83, creatinine 5.5, eGFR 11. Remains Anuric. Plan to prone 0700 tomorrow for better monitoring by day team. Will continue dialysis as needed. 09/18/2024: Patient seen and examined at bedside. Sedated, intubated, paralyzed. Patient receiving dialysis with fluid removal, during which patient developed worsening hypotension associated with new onset afib w/ RVR. Dialysis was terminated early, and amiodarone drip was initated after a 150ml amiodorone bolus. Afib was terminated, and patient returned to regular rate and rhythm. Due to increasing levophed requirements, vasopressin was initiated. Patient remains anuric, edematous. Will attempt to wean FiO2 down. Lantus held due to low blood glucose, will likely resume tomorrow. Exam Vital Signs Temp Pulse Resp BP Pulse Ox O2 Del Method O2 Flow Rate 99.5 F 101 H 36 H 118/61 98 Mechanical Ventilation 40 09/18/24 09:03 09/18/24 10:10 09/18/24 10:10 09/18/24 10:10 09/18/24 10:10 09/18/24 06:00 09/17/24 10:45 FiO2 80 09/18/24 10:10 Narrative Exam PE: Gen: Well-developed and well-nourished. Obese. Sedated, paralyzed, and intubated. HEENT: NCAT, PERRLA, EOMI, MMM, anicteric conjunctivae. Acanthosis nigricans. CVS: normal S1 and S2. RRR. No M/R/G. Resp: Good lung sounds, slightly diminished due to body habitus. No wheezing or crackles auscultated. Abd: soft, non-tender, non-distended. MSK: Good ROM in BUE & BLE. No rash. Trace BLE edema. Stage II pressure ulcer sacrum and just below left buttock. Neuro: Unable to obtain. Objective Labs 09/18/24 05:32 09/18/24 05:32 Labs: Laboratory Results - last 24 hr 09/17/24 09/18/24 09/18/24 07:21 04:08 05:32 WBC 24.9 H D RBC 4.46 L Hgb 14.2 Hct 42.7 MCV 96 MCH 31.8 MCHC 33.3 RDW Std Deviation 50.6 H Plt Count 83 L D Neut % (Auto) 87 H Lymph % (Auto) 3 L Burke % (Auto) 3 Eos % (Auto) 1 Baso % (Auto) 0 Neut # (Auto) 21.7 H Lymph # (Auto) 0.6 L Burke # (Auto) 0.8 Eos # (Auto) 0.1 Baso # (Auto) 0.1 Immature Gran # (Auto) 1.51 H Absolute Nucleated RBC 0.02 H Immature Gran % 6 H Nucleated RBC % 0 Puncture Site Arterial Line ABG pH 7.16 L* ABG pCO2 75 H* ABG pO2 86 D ABG HCO3 26 ABG O2 Saturation 95 ABG Base Excess -4 L FiO2 100 Sodium 132 L Potassium 4.7 D Chloride 97 L Carbon Dioxide 23.9 Anion Gap 11 BUN 79 H Creatinine 5.4 H* Estim Creat Clear Calc 14.6 L eGFR 11 L* BUN/Creatinine Ratio 15 Glucose 122 H Calculated Osmolality 289 Calcium 8.0 L Corrected Calcium 8.8 Phosphorus 9.2 H Magnesium 2.4 Total Bilirubin 0.8 AST 59 H ALT 81 H Alkaline Phosphatase 100 D Total Protein 5.2 L Albumin 3.0 L Globulin 2.2 L Albumin/Globulin Ratio 1.4 HIV 1&2 Antibody Rapid Non-Reactive ABG Interpretation ABG results: 09/08/24 09/09/24 09/10/24 22:55 18:09 04:18 ABG pH 7.40 7.41 7.38 ABG pCO2 42 44 48 ABG pO2 75 L 59 L* 68 L ABG HCO3 26 28 H 29 H ABG O2 Saturation 95 90 L 93 ABG Base Excess 1 3 3 09/10/24 09/11/24 09/12/24 12:16 04:34 04:00 ABG pH 7.43 7.43 7.45 ABG pCO2 46 48 45 ABG pO2 49 L* 48 L* 55 L* ABG HCO3 30 H 32 H 31 H ABG O2 Saturation 84 L 83 L 88 L ABG Base Excess 5 H 7 H 6 H 09/13/24 09/13/24 09/13/24 13:06 17:37 22:17 ABG pH 7.45 7.26 L D 7.35 ABG pCO2 45 76 H* D 57 H D ABG pO2 53 L* 100 D 84 ABG HCO3 31 H 34 H 31 H ABG O2 Saturation 87 L 96 96 ABG Base Excess 6 H 4 H 4 H 09/14/24 09/14/24 09/14/24 04:10 06:03 06:23 ABG pH 7.11 L* D 7.09 L* 7.15 L* ABG pCO2 106 H* D 115 H* 91 H* D ABG pO2 122 H D 90 D 100 ABG HCO3 34 H 35 H 32 H ABG O2 Saturation 98 94 97 ABG Base Excess 0 0 0 09/15/24 09/15/24 09/15/24 04:44 08:45 15:00 ABG pH 7.22 L 7.19 L* 7.18 L* ABG pCO2 69 H D 72 H* 72 H* ABG pO2 67 L D 62 L 102 D ABG HCO3 29 H 27 H 27 H ABG O2 Saturation 92 89 L 98 ABG Base Excess -1 -3 -3 09/16/24 09/17/24 09/17/24 04:18 04:34 10:29 ABG pH 7.20 L 7.18 L* 7.24 L ABG pCO2 67 H 69 H 69 H ABG pO2 75 L D 86 142 H D ABG HCO3 26 26 29 H ABG O2 Saturation 94 95 99 H ABG Base Excess -4 L -4 L 0 09/18/24 04:08 ABG pH 7.16 L* ABG pCO2 75 H* ABG pO2 86 D ABG HCO3 26 ABG O2 Saturation 95 ABG Base Excess -4 L Quality Measures Quality Measures sepsis Current suspected stage: sepsis Possible source: pulmonary Blood cultures ordered: yes Antibiotic ordered: Yes Advance care planning discussed with:: other Assessment & Plan Assessment Current Active Medications: Generic Name Dose Route Start Last Admin Trade Name Freq PRN Reason Stop Dose Admin Acetaminophen 650 mg 09/08/24 22:46 Acetaminophen 325 Mg Tablet PO 10/08/24 22:45 Q6H PRN Fever >101.5 Albuterol/Ipratropium 3 ml 09/08/24 23:01 Albuterol/Ipratropium (Duoneb) Rt Sanjana 3 Ml Nebu INH 10/08/24 23:00 Q2HR PRN SHORTNESS OF BREATH OR WHEEZE Albuterol/Ipratropium 3 ml 09/10/24 03:00 09/18/24 10:09 Albuterol/Ipratropium (Duoneb) Rt Sanjana 3 Ml Nebu INH 10/10/24 02:59 3 ml Q4HRRT EDWIN Administration Aspirin 81 mg 09/14/24 09:15 09/18/24 10:21 Aspirin 81 Mg Chew GT 10/14/24 09:14 81 mg QDAY EDWIN Administration Balsam [place] 0 gm 09/12/24 21:00 09/18/24 10:21 Balsam Wade/[place] Oil (Venelex) 60 Gm Tube TOP 10/12/24 20:59 60 applicatio BID EDWIN Administration Benzonatate 100 mg 09/09/24 00:01 Benzonatate 100 Mg Capsule PO 10/09/24 00:14 TID PRN Cough Protocol Dextrose 25 ml 09/08/24 22:42 Dextrose 50%-Water Inj 50 Ml Syringe IV 10/08/24 22:41 Q15MIN PRN BG 50-70 responsive npo pt Dextrose 50 ml 09/08/24 22:42 Dextrose 50%-Water Inj 50 Ml Syringe IV 10/08/24 22:41 Q15MIN PRN BG <50 OR BG <70 & pt unresponsive Diclofenac Sodium 2 gm 09/11/24 15:05 09/11/24 23:06 Diclofenac 1% Top Gel 100 Gm Tube TOP 10/11/24 17:59 2 gm Q6HR PRN Administration LOCALIZED PAIN Glucagon 1 mg 09/08/24 22:42 Glucagon Inj 1 Mg Vial IM Q15MIN PRN BG <70, and no IV access Heparin Sodium (Porcine) 2,500 unit 09/16/24 14:45 09/18/24 09:11 Heparin Sod Inj 1000 Unit/Ml Vial 10 Ml INDWELLCAT 09/30/24 14:44 2,500 unit PRN PRN Administration DIALYSIS Heparin Sodium (Porcine) 5,000 unit 09/18/24 06:00 09/18/24 13:58 Heparin Sod Inj 5000 Unit/Ml Vial SC 10/02/24 05:59 5,000 unit Q8HR EDWIN Administration Dexmedetomidine/Sodium Chloride 200 mcg in 50 mls @ 5.756 mls/hr 09/13/24 14:54 09/13/24 16:45 Precedex Ivpb IV 10/13/24 14:53 0 mcg/kg/hr .Q8H42M PRN 0 mls/hr Per PROTOCOL Titration Protocol 0.2 MCG/KG/HR Cisatracurium Besylate 200 mg/ 520 mls @ 17.959 mls/hr 09/13/24 19:05 09/18/24 13:00 Sodium Chloride IV 10/13/24 19:04 Infused .Q24H PRN Titration Per Protocol Protocol 1 MCG/KG/MIN Propofol 1,000 mg in 100 mls @ 3.454 mls/hr 09/13/24 22:11 09/18/24 12:54 Diprivan Ivpb IV 10/13/24 16:46 45 mcg/kg/min .Q24H PRN 31.083 mls/hr PER PROTOCOL Administration Protocol 5 MCG/KG/MIN Fentanyl Citrate 2,500 mcg in 250 mls @ 2.5 mls/hr 09/13/24 22:12 09/18/24 13:00 Sublimaze Inj 2,500 Mcg/250 Ml Bag IV 09/22/24 22:11 125 mcg/hr .Q24H PRN 12.5 mls/hr PER PROTOCOL Titration Protocol 25 MCG/HR Midazolam HCl 100 mg in 100 mls @ 1 mls/hr 09/13/24 22:12 09/18/24 13:35 Versed Pf Inj In Ns Premix IV 09/22/24 22:11 3 mg/hr .Q24H PRN 3 mls/hr PER PROTOCOL Titration Protocol 1 MG/HR Albumin Human 25 gm in 100 mls @ 100 mls/min 09/16/24 14:12 09/18/24 08:01 Albuminar-25 Ivpb IV 100 mls/min PRN PRN Administration DIALYSIS Amiodarone HCl/Dextrose 360 mg in 200 mls @ 33.333 mls/hr 09/18/24 09:10 09/18/24 09:28 Nexterone Ivpb IV 09/18/24 15:09 33.333 mls/hr .Q6H ONE Administration Amiodarone HCl/Dextrose 360 mg in 200 mls @ 16.667 mls/hr 09/18/24 15:10 Nexterone Ivpb IV 09/19/24 15:09 .Q12H EDWIN Norepinephrine Bitartrate 16 mg in 250 mls @ 5.508 mls/hr 09/18/24 12:56 Levophed In Ns 16mg/250ml IV 10/18/24 12:55 .Q24H PRN PER protocol Protocol 0.05 MCG/KG/MIN Vasopressin/Sodium Chloride 20 unit in 100 mls @ 9 mls/hr 09/18/24 13:47 09/18/24 13:53 Vasostrict/Ns Ivpb IV 10/18/24 13:46 0.03 unit/min .Q11H7M PRN 9 mls/hr PER PROTOCOL Administration Protocol 0.03 UNIT/MIN Insulin Glargine 46 unit 09/15/24 09:00 09/18/24 10:52 Insulin Glargine (Lantus) 5 Unit/0.05 Ml (Per 5 Units) SC 10/15/24 08:59 Not Given QDAY EDWIN Insulin Human Lispro 0 unit 09/14/24 00:00 09/18/24 11:38 Insulin Lispro (Admelog) 1 Unit/0.01 Ml Unit SC 10/14/24 00:00 4 unit Q6HR EDWIN Administration Protocol Insulin Human Lispro 6 unit 09/14/24 12:00 09/18/24 11:38 Insulin Lispro (Admelog) 1 Unit/0.01 Ml Unit SC 10/14/24 11:59 6 unit Q6HR EDWIN Administration Pantoprazole Sodium 40 mg 09/11/24 13:45 09/18/24 10:21 Pantoprazole Inj 40 Mg Vial IV 10/11/24 13:44 40 mg QDAY EDWIN Administration Pharmacy Consult 1 each 09/17/24 12:06 Pharmacy Renal Dose Adjustment 1 Ea XX 10/17/24 12:05 PRN PRN CONSULT Sennosides 1 tab 09/09/24 00:06 Senna Tablet PO 10/09/24 00:05 QDAY PRN CONSTIPATION Protocol Sevelamer Carbonate 0.8 gm 09/17/24 17:30 09/18/24 11:37 Sevelamer Carbonate 0.8 Gm Packet (Non-Formulary) NG 10/17/24 17:29 Not Given TIDWM EDWIN Plan 69-year-old male with past medical history of coronary artery disease and open heart surgery in 2004 for bypass surgery, gastritis/GERD, prf-reikwai-[id number] type 2 diabetes is presenting to the ED on 09/08 with worsening shortness of breath and cough, admitted to ICU for acute hypoxic respiratory failure with ARDS. Neuro: #Sedated/intubated/paralyzed -Maintain sedation and paralytics, treat underlying ARDS Cardio: #CHF #Volume overload 2/2 oligouria 2/2 ATN 2/2 Shock Patient does not have formally diagnosed history of CHF, but echo shows decreased systolic function with LVH, ejection fraction 45-50%. Patient has vascular congestion on chest x-rays. Patient was receiving Lasix, has net fluid loss 1.8 L during course of hospital admission. Currently appears mildly hypervolemic on exam, trace pedal edema, no crackles on lung auscultation. Output did not improve with Lasix or Bumex. Patient was scheduled for dialysis with 1/5 L fluid removal, was unable to tolerate. Developed Afib with RVR, increasing pressor requirements. Dialysis was terminated early. -Strict I's and O's -Started on HD 09/16 -Continue dialysis as needed/as tolerated #Hypotension Likely due to volume overload. Patient requiring pressors. -titrate levophed to maintain MAP >65 -vasopressin added due to high levophed requirements -do not advance tube feeds until pressors titrated off #HTN Patient history hypertension. Patient BP has been low to normal in ICU. -Hold antihypertensive medication, may resume when BP normalized #CAD s/p CABG #Aneurysmal dilatation thoracic aorta (4.8cm) Patient has history of CAD with CABG and thoracic aorta aneurysm. Med recs pending. -Resumed home aspirin -Home statin held in setting of transaminitis Pulm: #AHRF 2/2 #ARDS Multifactorial: Influenza pneumonia, pulmonary edema 2/2 hypervolemia 2/2 oligouria, possible bacterial superinfection Patient presented with shortness of breath and nonproductive cough for one week, influenza positive. Patient was initially saturating well on BiPAP. Producing good urinary output. CTA ruled out pulmonary emboli. Patient not in acute respiratory distress at time of exam. Patient developed worsening hypoxic respiratory failure, requiring intubation, sedation, paralysis for ARDS Blood culture and MRSA screen negative ABG improved after proning: pH 7.15, pCO2 91, pO2 100 Chest x-ray shows bilateral pneumonia and vascular congestion. Solumedrol 60mg IV BID stopped on 09/16 as it is not recommended in ARDS 2/2 influenza PNA -Proning as needed, 16/8 ratio. -lung protective ventilation -permissive hypercapnea -Ventilated, titrate FiO2 to maintain sats greater than 88% -Tamiflu(09/09-09/16) -PO Azithromycin(09/09-09/16) -Doxycycline (09/11-09/18), initially given for possible MRSA, but continued in the setting of possible intracellular pathogens -Cefepime(09/10-09/17) for pseudomonal coverage given hx of DMII -Duoneb EDWIN q4Hr -Follow up sputum culture GI: #Transaminitis DDx: Acute illness vs. [facility] Patient has acutely elevated liver enzymes. No RUQ tenderness. Obesity. -Hold statins -Monitor #Tube feeds Will start trickle feeds -do not advance feeds until patient off pressors -dietary consult appreciated Renal: #ATN 2/2 ischemia. Patient was hypotensive for 2 hours prior to LEWIS. Patient LEWIS is worsening, urine output has significantly decreased despite 80 mg Lasix IV. Bumex 1g IV given without improvement. 2g Bumex IV given, monitor for improvement. Nephro consulted. Patient remained anuric with lasix and with bumex. Temp. dialysis cath placed L IJ, HD intiated. -Started on HD 09/16, will continue as needed/tolerated -Monitor urinary output -Maintain MAP >65 -nephro consult appreciated -avoid nephrotoxins -daily labs #Hyperkalemia-resolved 2/2 ATN with decreased UOP. Slight improvement after 1 dose Kayexelate. 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 -Monitor Endo: #T2DM Patient had low glucose prior to tube feeds starting, held lantus. Blood sugar improved with tube feeds, will resume lantus tomorrow -ISS -Lantus 46 units -Lispro 6 units every 6 hours Heme: #Leukocytosis Multifactorial: Infection plus steroids -Monitor #Thrombocytopenia, resolved Platelets >100K, does not require transfusions. -Monitor ID: #Severe bilateral viral pneumonia -Treatment as in Pulm. Skin/MSK: #Pressure ulcers Patient has stage II pressure ulcer to sacrum, and just below the left buttock -Bandages ICU Health maintenance: Mechanical ventilation: Yes Sedation: Yes Diet: None DVT ppx: Heparin GI ppx: Protonix Cannon: Yes IV lines: Yes Central line: Right IJ, left IJ HD catheter Arterial line: No Code status: Full code The patient's management plan was discussed with my attending physician MD Anthony Gonsalves MD PGY-1
--- NOTE | 2024-09-18 14:15 | ESPR_ITS ---
Documentation for date of: 09/18/24 Subjective Subjective Interval history: Patient currently seen in ICU. On ventilator. History was taken based on chart review and information from the ICU team. Per resident note-Mr. Joel is a 69-year-old morbidly obese gentleman with past medical history significant for coronary artery disease s/p CABG in 2004, diabetes type 2, GERD, hypertension, dyslipidemia presented to the emergency department shortness of breath and coughing along with fevers and noted to have flu/bilateral extensive pneumonia. Initially was admitted to floor and subsequently due to hypoxic respiratory failure was transferred to ICU and intubated. In ICU- developed worsening hypoxia in setting of ARDS. Patient currently in prone ventilation, requiring paralytics and sedation. 09/15/2024: Patient currently seen in ICU. In prone ventilation. Labs reviewed. Urine output very poor despite diuretics. Creatinine getting worse. Spoke to Dr. Cornejo-if no improvement in renal function he might need renal replacement therapy in the next 1 to 2 days. 09/16/2024: Patient seen on the bedside in the ICU. In the supine position today, was proned yesterday. Continues to be paralyzed and sedated on mechanical ventilation, FiO2 85%, SaO2 95%. Received bumetanide yesterday, urine output continues to be minimal 5-10 ml despite the fluid intake of almost 2L. Labs showed sodium 136, potassium 5.1, bicarb 23.1, BUN 78, creatinine 4.8, EGFR 13. Kidney functions continue to worsen in the last few days, continues to be anuric, patient is is requiring dialysis. Temporary dialysis catheter was placed today. 09/17/2024: Patient seen on the bedside in the ICU. Patient had a dialysis session 09/16/24. Continues to be paralyzed and sedated on mechanical ventilation, FiO2 85%, SaO2 95%. Received bumetanide yesterday, urine output continues to be minimal 5-10 ml despite the fluid intake of almost 2L. Labs showed sodium 136, potassium 5.2, bicarb 23.7, BUN 83, creatinine 5.5, EGFR 11. Kidney functions continue to worsen in the last few days, continues to be anuric, patient is is requiring dialysis today again. 09/18/2024: Patient seen on the bedside in the ICU. Patient continued continues to be paralyzed and intubated on sedation. Continues to be anuric. Today during dialysis patient developed A-fib with RVR and hypotension, dialysis session was ended early and patient was started on amiodarone drip. Almost 1 L of fluid was removed. Vasopressin was added to Levophed due to increasing pressor requirements. Labs show sodium 132, potassium 4.7, bicarb 23.9, BUN 79, creatinine 5.4, EGFR 11. ABG continues to show respiratory acidosis. Exam Vital Signs Temp Pulse Resp BP Pulse Ox O2 Del Method O2 Flow Rate 99.5 F 101 H 36 H 118/61 98 Mechanical Ventilation 40 09/18/24 09:03 09/18/24 10:10 09/18/24 10:10 09/18/24 10:10 09/18/24 10:10 09/18/24 06:00 09/17/24 10:45 FiO2 80 09/18/24 10:10 Narrative Exam Physical Exam General: Sedated, paralyzed on mechanical ventilation. In supine position. HEENT: Normocephalic, atraumatic, mucous membranes moist. Heart: Regular rate and rhythm, no murmurs. Lungs: Clear to auscultation with no wheezing or crackles. Abdomen: Soft, nondistended, nontender, positive bowel sounds. ?No guarding or rebound tenderness. Neurologic: Impossible to assess patient is paralyzed and sedated. Extremities: Moderate lower and upper extremity edema. Skin: No rash or ecchymoses. Objective Labs 09/18/24 05:32 09/18/24 05:32 Labs: Laboratory Results - last 24 hr 09/17/24 09/18/24 09/18/24 07:21 04:08 05:32 WBC 24.9 H D RBC 4.46 L Hgb 14.2 Hct 42.7 MCV 96 MCH 31.8 MCHC 33.3 RDW Std Deviation 50.6 H Plt Count 83 L D Neut % (Auto) 87 H Lymph % (Auto) 3 L [place] % (Auto) 3 Eos % (Auto) 1 Baso % (Auto) 0 Neut # (Auto) 21.7 H Lymph # (Auto) 0.6 L [place] # (Auto) 0.8 Eos # (Auto) 0.1 Baso # (Auto) 0.1 Immature Gran # (Auto) 1.51 H Absolute Nucleated RBC 0.02 H Immature Gran % 6 H Nucleated RBC % 0 Puncture Site Arterial Line ABG pH 7.16 L* ABG pCO2 75 H* ABG pO2 86 D ABG HCO3 26 ABG O2 Saturation 95 ABG Base Excess -4 L FiO2 100 Sodium 132 L Potassium 4.7 D Chloride 97 L Carbon Dioxide 23.9 Anion Gap 11 BUN 79 H Creatinine 5.4 H* Estim Creat Clear Calc 14.6 L eGFR 11 L* BUN/Creatinine Ratio 15 Glucose 122 H Calculated Osmolality 289 Calcium 8.0 L Corrected Calcium 8.8 Phosphorus 9.2 H Magnesium 2.4 Total Bilirubin 0.8 AST 59 H ALT 81 H Alkaline Phosphatase 100 D Total Protein 5.2 L Albumin 3.0 L Globulin 2.2 L Albumin/Globulin Ratio 1.4 HIV 1&2 Antibody Rapid Non-Reactive ABG Interpretation ABG results: 09/08/24 09/09/24 09/10/24 22:55 18:09 04:18 ABG pH 7.40 7.41 7.38 ABG pCO2 42 44 48 ABG pO2 75 L 59 L* 68 L ABG HCO3 26 28 H 29 H ABG O2 Saturation 95 90 L 93 ABG Base Excess 1 3 3 09/10/24 09/11/24 09/12/24 12:16 04:34 04:00 ABG pH 7.43 7.43 7.45 ABG pCO2 46 48 45 ABG pO2 49 L* 48 L* 55 L* ABG HCO3 30 H 32 H 31 H ABG O2 Saturation 84 L 83 L 88 L ABG Base Excess 5 H 7 H 6 H 09/13/24 09/13/24 09/13/24 13:06 17:37 22:17 ABG pH 7.45 7.26 L D 7.35 ABG pCO2 45 76 H* D 57 H D ABG pO2 53 L* 100 D 84 ABG HCO3 31 H 34 H 31 H ABG O2 Saturation 87 L 96 96 ABG Base Excess 6 H 4 H 4 H 09/14/24 09/14/24 09/14/24 04:10 06:03 06:23 ABG pH 7.11 L* D 7.09 L* 7.15 L* ABG pCO2 106 H* D 115 H* 91 H* D ABG pO2 122 H D 90 D 100 ABG HCO3 34 H 35 H 32 H ABG O2 Saturation 98 94 97 ABG Base Excess 0 0 0 12/15/24 12/15/24 12/15/24 04:44 08:45 15:00 ABG pH 7.22 L 7.19 L* 7.18 L* ABG pCO2 69 H D 72 H* 72 H* ABG pO2 67 L D 62 L 102 D ABG HCO3 29 H 27 H 27 H ABG O2 Saturation 92 89 L 98 ABG Base Excess -1 -3 -3 09/16/24 09/17/24 09/17/24 04:18 04:34 10:29 ABG pH 7.20 L 7.18 L* 7.24 L ABG pCO2 67 H 69 H 69 H ABG pO2 75 L D 86 142 H D ABG HCO3 26 26 29 H ABG O2 Saturation 94 95 99 H ABG Base Excess -4 L -4 L 0 09/18/24 04:08 ABG pH 7.16 L* ABG pCO2 75 H* ABG pO2 86 D ABG HCO3 26 ABG O2 Saturation 95 ABG Base Excess -4 L Quality Measures Quality Measures sepsis Current suspected stage: sepsis Possible source: pulmonary Blood cultures ordered: yes Antibiotic ordered: Yes Advance care planning discussed with:: other Assessment & Plan Assessment Current Active Medications: Generic Name Dose Route Start Last Admin Trade Name Freq PRN Reason Stop Dose Admin Acetaminophen 650 mg 09/08/24 22:46 Acetaminophen 325 Mg Tablet PO 10/08/24 22:45 Q6H PRN Fever >101.5 Albuterol/Ipratropium 3 ml 09/08/24 23:01 Albuterol/Ipratropium (Duoneb) Rt Sanjana 3 Ml Nebu INH 10/08/24 23:00 Q2HR PRN SHORTNESS OF BREATH OR WHEEZE Albuterol/Ipratropium 3 ml 09/10/24 03:00 09/18/24 10:09 Albuterol/Ipratropium (Duoneb) Rt Sanjana 3 Ml Nebu INH 10/10/24 02:59 3 ml Q4HRRT EDWIN Administration Aspirin 81 mg 09/14/24 09:15 09/18/24 10:21 Aspirin 81 Mg Chew GT 10/14/24 09:14 81 mg QDAY EDWIN Administration Balsam [place]/Freedom Oil 0 gm 09/12/24 21:00 09/18/24 10:21 Balsam [place]/Freedom Oil (Venelex) 60 Gm Tube TOP 10/12/24 20:59 60 applicatio BID EDWIN Administration Benzonatate 100 mg 09/09/24 00:01 Benzonatate 100 Mg Capsule PO 10/09/24 00:14 TID PRN Cough Protocol Dextrose 25 ml 09/08/24 22:42 Dextrose 50%-Water Inj 50 Ml Syringe IV 10/08/24 22:41 Q15MIN PRN BG 50-70 responsive npo pt Dextrose 50 ml 09/08/24 22:42 Dextrose 50%-Water Inj 50 Ml Syringe IV 10/08/24 22:41 Q15MIN PRN BG <50 OR BG <70 & pt unresponsive Diclofenac Sodium 2 gm 09/11/24 15:05 09/11/24 23:06 Diclofenac 1% Top Gel 100 Gm Tube TOP 10/11/24 17:59 2 gm Q6HR PRN Administration LOCALIZED PAIN Glucagon 1 mg 09/08/24 22:42 Glucagon Inj 1 Mg Vial IM Q15MIN PRN BG <70, and no IV access Heparin Sodium (Porcine) 2,500 unit 09/16/24 14:45 09/18/24 09:11 Heparin Sod Inj 1000 Unit/Ml Vial 10 Ml INDWELLCAT 09/30/24 14:44 2,500 unit PRN PRN Administration DIALYSIS Heparin Sodium (Porcine) 5,000 unit 09/18/24 06:00 09/18/24 13:58 Heparin Sod Inj 5000 Unit/Ml Vial SC 10/02/24 05:59 5,000 unit Q8HR EDWIN Administration Dexmedetomidine/Sodium Chloride 200 mcg in 50 mls @ 5.756 mls/hr 09/13/24 14:54 09/13/24 16:45 Precedex Ivpb IV 10/13/24 14:53 0 mcg/kg/hr .Q8H42M PRN 0 mls/hr Per PROTOCOL Titration Protocol 0.2 MCG/KG/HR Cisatracurium Besylate 200 mg/ 520 mls @ 17.959 mls/hr 09/13/24 19:05 09/18/24 13:00 Sodium Chloride IV 10/13/24 19:04 Infused .Q24H PRN Titration Per Protocol Protocol 1 MCG/KG/MIN Propofol 1,000 mg in 100 mls @ 3.454 mls/hr 09/13/24 22:11 09/18/24 12:54 Diprivan Ivpb IV 10/13/24 16:46 45 mcg/kg/min .Q24H PRN 31.083 mls/hr PER PROTOCOL Administration Protocol 5 MCG/KG/MIN Fentanyl Citrate 2,500 mcg in 250 mls @ 2.5 mls/hr 09/13/24 22:12 09/18/24 13:00 Sublimaze Inj 2,500 Mcg/250 Ml Bag IV 09/22/24 22:11 125 mcg/hr .Q24H PRN 12.5 mls/hr PER PROTOCOL Titration Protocol 25 MCG/HR Midazolam HCl 100 mg in 100 mls @ 1 mls/hr 09/13/24 22:12 09/18/24 13:35 Versed Pf Inj In Ns Premix IV 09/22/24 22:11 3 mg/hr .Q24H PRN 3 mls/hr PER PROTOCOL Titration Protocol 1 MG/HR Albumin Human 25 gm in 100 mls @ 100 mls/min 09/16/24 14:12 09/18/24 08:01 Albuminar-25 Ivpb IV 100 mls/min PRN PRN Administration DIALYSIS Amiodarone HCl/Dextrose 360 mg in 200 mls @ 33.333 mls/hr 09/18/24 09:10 09/18/24 09:28 Nexterone Ivpb IV 09/18/24 15:09 33.333 mls/hr .Q6H ONE Administration Amiodarone HCl/Dextrose 360 mg in 200 mls @ 16.667 mls/hr 09/18/24 15:10 Nexterone Ivpb IV 09/19/24 15:09 .Q12H EDWIN Norepinephrine Bitartrate 16 mg in 250 mls @ 5.508 mls/hr 09/18/24 12:56 Levophed In Ns 16mg/250ml IV 10/18/24 12:55 .Q24H PRN PER protocol Protocol 0.05 MCG/KG/MIN Vasopressin/Sodium Chloride 20 unit in 100 mls @ 9 mls/hr 09/18/24 13:47 09/18/24 13:53 Vasostrict/Ns Ivpb IV 10/18/24 13:46 0.03 unit/min .Q11H7M PRN 9 mls/hr PER PROTOCOL Administration Protocol 0.03 UNIT/MIN Insulin Glargine 46 unit 09/15/24 09:00 09/18/24 10:52 Insulin Glargine (Lantus) 5 Unit/0.05 Ml (Per 5 Units) SC 10/15/24 08:59 Not Given QDAY EDWIN Insulin Human Lispro 0 unit 09/14/24 00:00 09/18/24 11:38 Insulin Lispro (Admelog) 1 Unit/0.01 Ml Unit SC 10/14/24 00:00 4 unit Q6HR EDWIN Administration Protocol Insulin Human Lispro 6 unit 09/14/24 12:00 09/18/24 11:38 Insulin Lispro (Admelog) 1 Unit/0.01 Ml Unit SC 10/14/24 11:59 6 unit Q6HR EDWIN Administration Pantoprazole Sodium 40 mg 09/11/24 13:45 09/18/24 10:21 Pantoprazole Inj 40 Mg Vial IV 10/11/24 13:44 40 mg QDAY EDWIN Administration Pharmacy Consult 1 each 09/17/24 12:06 Pharmacy Renal Dose Adjustment 1 Ea XX 10/17/24 12:05 PRN PRN CONSULT Sennosides 1 tab 09/09/24 00:06 Senna Tablet PO 10/09/24 00:05 QDAY PRN CONSTIPATION Protocol Sevelamer Carbonate 0.8 gm 09/17/24 17:30 09/18/24 11:37 Sevelamer Carbonate 0.8 Gm Packet (Non-Formulary) NG 10/17/24 17:29 Not Given TIDWM EDWIN Plan The patient is a 69-year-old morbidly obese gentleman with past medical history significant for coronary artery disease s/p CABG in 2004, diabetes type 2, GERD, hypertension, dyslipidemia presented to the emergency department shortness of breath and coughing along with fevers and noted to have flu/bilateral extensive pneumonia. Initially was admitted to floor and subsequently due to hypoxic respiratory failure was transferred to ICU and intubated. Nephrology was consulted due to LEWIS and dialysis. #LEWIS- ATN #Hyperkalemia #Hyperphosphatemia #Non-anion gap respiratory acidosis Most likely ATN in the setting of of shock and prolonged hypotension. Electrolyte abnormalities are due to LEWIS. NAGMA in the setting of permissive hypercapnia due hypoventilation for ARDS protocol. 09/15/24: Patient was put in the prone position due to acute hypoxic respiratory failure and ARDS. Daily urine output 0.4 L. Bumex 1 mg once and Bumex 2 mg once was given, patient continues to have poor urine output. Patient received kayexalate 30 g once. 09/16/2024: Patient continues to have poor urine output 5 to 10 mL/h. Labs showed sodium 136, potassium 5.1, bicarb 23.1, BUN 78, creatinine 4.8, EGFR 13. Temporary dialysis catheter was placed. Patient would require dialysis due to his kidney failure. 09/17/2024: Hemodialysis session was finished earlier due to A-fib with RVR and hypotension.Labs show sodium 132, potassium 4.7, bicarb 23.9, BUN 79, creatinine 5.4, EGFR 11. Plan: ?Monitor daily CMP ? Avoid nephrotoxic agents ? Maintain MAP above 65 ? Renally dose medications ? Emergent dialysis ?Sevelamer 800 mg 3 times daily #A-fib with RVR #Congestive heart failure #HTN #CAD s/p CABG #AHRF #ARDS #Transaminitis #T2DM #Leukocytosis #Thrombocytopenia #Severe bilateral viral pneumonia #Pressure ulcers - Management as per primary team Plan of care discussed with attending Dr. Meng. Benita Donald MD, PGY 1. Attending Provider Attestation/Addendum Patient seen and examined with resident physician Dr. Joy. Note reviewed, agree with findings and recommendations. Patient admitted with hypoxic respiratory failure and LEWIS. Currently seen in ICU. On ventilator Patient currently seen on dialysis. patient went into arrhythmia during dialysis. Blood flow was decreased, ultrafiltration goal was decreased. Prognosis remains guarded. Critical care time spent more than 35 minutes regarding plan of care and disease management Hemodialysis for 3 hours, blood flow 200, 2K, ultrafiltration 1 L, Epogen 6000, no heparin ordered. Plan of care discussed with the dialysis nurse. Please see dialysis flowsheet for further details. Next dialysis will be scheduled tomorrow
[2024-09-18] MEDS: AMIODARONE 360 MG IVPB 360 MG/200 ML BAG 16.667 MG IV (15:25)
[2024-09-18] MEDS: fentaNYL 2,500 MCG/250 ML BAG 2,500 MCG/250 ML BAG 12.5 MCG IV (15:28)
[2024-09-18] MEDS: CISATRACURIUM INJ 200 MG in SODIUM CHLORIDE 0.9% 500 ML 500 ML 26.939 MG IV (19:00)
[2024-09-18] MEDS: Norepinephrine/NS 16mg/250ml 16 MG/250 ML BAG 31.945 MG IV (21:19)
[2024-09-19] VITALS (55 sets, daily range): BP systolic 60–132; BP diastolic 42–71; PULSE 102–113; RESP 0–40; TEMP 37–38.3; O2SAT 82–91
[2024-09-19] MEDS: ALBUTEROL/IPRATROPIUM (Duoneb) RT SOL 3 ML NEBU INH ×2 (02:05→06:24)
[2024-09-19] MEDS: AMIODARONE 360 MG IVPB 360 MG/200 ML BAG 16.667 MG IV (02:23)
[2024-09-19] MEDS: PROPOFOL 1,000 MG IVPB 1,000 MG/100 ML VIAL 31.083 MG IV ×3 (03:20→09:54)
[2024-09-19 04:30] LABS: Base Excess -6 (-3-3); HCO3 25 mEq/L (20-26); Inspired Oxygen, FIO2 21 %; O2 Saturation 80 % (91-98); PCO2 71 mmHg (32.0-48.0)
[2024-09-19 04:33] LABS: Allen Test Performed/OK; Puncture Site Left Radial
[2024-09-19 04:35] LABS: PO2 52 mmHg (83-108); pH, Arterial 7.15 (7.35-7.45)
--- NOTE | 2024-09-19 04:40 | PC.RT ---
AM ABG reported to Dr. Chow. Per MD no vent changes to be made at this time. MD informed of spo2 85% on PEEP of 13, 100%Fio2. No changes to PEEP per MD.
[2024-09-19] MEDS: Norepinephrine/NS 16mg/250ml 16 MG/250 ML BAG 42.961 MG IV (05:12)
[2024-09-19] MEDS: HEPARIN SOD INJ 5000 UNIT/ML VIAL SC (05:25)
[2024-09-19 05:43] LABS: Basophils # (Auto) 0.2 Thou/mm3 (0.0-0.2); Basophils % (Auto) 1 % (0-2.5); Eosinophils # (Auto) 0.1 Thou/mm3 (0.0-0.5); Eosinophils % (Auto) 0 % (0-10); Hematocrit 42.1 % (41.0-53.0); Hemoglobin 14.2 g/dL (13.5-16.0); Immature Granulocytes % (Auto) 7 % (0-0); Immature Granulocytes Auto 2.24 Thou/mm3 (0.00-0.00); Lymphocytes # (Auto) 0.5 Thou/mm3 (1.0-4.8); Lymphocytes % (Auto) 2 % (10-50); Mean Corpuscular HGB Conc 33.7 g/dl (31.0-37.0); Mean Corpuscular Hemoglobin 31.5 pg (25.0-35.0); Mean Corpuscular Volume 93 fL (80-100); Monocytes % (Auto) 3 % (0-12); Neutrophils # (Auto) 27.1 Thou/mm3 (1.8-7.7); Neutrophils % (Auto) 87 % (37-80); Nucleated Red Blood Cell # 0.05 Thou/mm3 (0.00-0.00); Nucleated Red Blood Cell % 0 /100 WBC (0); RDW Standard Deviation 51.8 fL (35.1-43.9); Red Blood Count 4.51 Miln/mm3 (4.50-5.90); White Blood Count 31.1 Thou/mm3 (3.8-10.6)
[2024-09-19 05:51] LABS: Platelet Count 60 Thou/mm3 (140-440); Slide Review Platelets confirmed
[2024-09-19 06:35] LABS: Alanine Aminotransferase 82 U/L (10-49); Albumin, Serum 2.8 gm/dL (3.4-4.8); Albumin/Globulin Ratio 1.2 (1.2-2.2); Alkaline Phosphatase 133 U/L (46-116); Anion Gap 16 (7-16); Aspartate Amino Transferase 74 U/L (0-34); BUN/Creatinine Ratio 13 Ratio (12-20); Blood Urea Nitrogen 76 mg/dL (9-23); Calcium 8.2 mg/dL (8.3-10.6); Calcium (Corrected) 9.2 mg/dL (8.5-10.1); Carbon Dioxide 22.5 mMol/L (20.0-31.0); Chloride 95 mMol/L (98-107); Creatinine (Component) 5.8 mg/dL (0.6-1.3); Globulin 2.3 gm/dL (2.3-3.5); Glucose 81 mg/dL (74-106); Osmolality,Calculated 287 (275-295); Potassium 5.5 mMol/L (3.4-5.1); Sodium 133 mMol/L (136-145); Total Protein 5.1 gm/dL (5.7-8.2); eGFR 10 See Note
[2024-09-19 07:10] LABS: Fibrinogen 386 mg/dL (175-375); INR 1.4 (0.9-1.3); Partial Thromboplastin Time 39.6 Seconds (22.0-36.0); Prothrombin Time 15.1 Seconds (9.0-12.2)
[2024-09-19 07:16] LABS: Troponin I 3.531 ng/mL (0.0-0.045)
[2024-09-19 07:40] LABS: D-Dimer > 3820 ng/mL (<600)
--- NOTE | 2024-09-19 07:51 | PC.NURSE ---
Per Dr. Meng pt. to unstable for HD. HD held.
--- NOTE | 2024-09-19 07:52 | PC.NURSE ---
at 0730 Dr. Mccarthy notified of patient oxygen saturation at 84%, RT called patient bagged at oxygen saturation of 80% at lowest. at 0753 oxygen saturation at 88% patient currently being bagged.
--- NOTE | 2024-09-19 07:55 | XR_ITS ---
Examination: AP chest single view TECHNIQUE: AP portable semiupright chest single view Exam date and time: September 19, 2024 at 0824 hours Comparison September 14, 2024 INDICATIONS: Hypoxic respiratory failure, acute, postintubation, extensive pneumonia on earlier chest imaging FINDINGS: Extensive bilateral pneumonia Mild prominence left ventricle Median sternotomy wires Right internal jugular central line tip SVC satisfactory position Endotracheal tube tip 4.8 cm above katalina Left internal jugular temporary dialysis catheter tip SVC IMPRESSION: Extensive bilateral pneumonia ARDS again noted
--- NOTE | 2024-09-19 07:55 | EKG_ITS ---
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[employer]: SUSY : 1955 Requested By: Jose Manuel Ragsdale Order Number: [id number] Reading MD: Jose Manuel Ragsdale Measurements Intervals [place]man Rate: 111 P: 5 FL: 151 QRS: 14 QRSD: 139 T: -49 QT: 320 QTc: 436 Interpretive Statements SINUS TACHYCARDIA INTRAVENTRICULAR CONDUCTION DELAY POSSIBLE ANTERIOR MYOCARDIAL INFARCTION , OF INDETERMINATE AGE INFERIOR MYOCARDIAL INFARCTION , OF INDETERMINATE AGE Compared to ECG 09/18/2024 13:58:42 Intraventricular conduction delay now present Right bundle-branch block no longer present Myocardial infarct finding still present /store/S0/[id number]/ecg/[id number].pdf
[2024-09-19] MEDS: PATIROMER CALCIUM 8.4 GM PACKET (NON-FORM) PO (08:30)
--- NOTE | 2024-09-19 09:47 | PC.NURSE ---
spoke with Denys at [facility] [place], OPI # of [id number].
[2024-09-19] MEDS: Norepinephrine/D5W 8mg/250ml 8 MG/250 ML BAG 118.72 MG IV (10:22)
--- NOTE | 2024-09-19 10:27 | PC.NURSE ---
Addendum entered by Fior Hinkle RN 09/19/24 10:28: per Andie, patient not a candidate at this time Original Note: at 1015 spoke with Andie at [facility] # [phone]
--- NOTE | 2024-09-19 11:05 | PC.NURSE ---
patient transitioning to comfort care at 0845, at 0930 patient family at the bedside, Elena patients sister and point of contact at bedside requesting Eng[employer]ving Plate [employer] and another family member, Dr. Le and Dr. Mccarthy made aware
--- NOTE | 2024-09-19 11:52 | PC.NURSE ---
[facility] called at 1155, spoke with ARTURO Chavez given of 1148, Dr. Ragsdale pronounced ARTURO
--- NOTE | 2024-09-19 11:56 | DES_ITS ---
<Statement entered by Devora Le MD - 09/20/24 13:54> TOTAL TIME: 45MINUTES ON DIRECT MEDICAL CARE, MANAGEMENT - COORDINATION AND COUNSELING > 50% OF TOTAL TIME I saw and evaluated the patient. I reviewed the resident?s note and agree with findings and plan as documented in the resident?s note. Documentation for date of: 09/19/24 Pronouncement Note Date and Time of Date of : 09/19/24 Time of : 11:48 PCOD Preliminary cause of : Acute respiratory distress syndrome (ARDS) Contributing Factors (1) Acute respiratory distress syndrome (ARDS): (2) Acute hypoxic respiratory failure: (3) Bilateral pneumonia: (4) STEMI (ST elevation myocardial infarction): (5) Acute tubular necrosis due to ischemia: (6) Sepsis: (7) Electrolyte imbalance: Summary Additional details: 69-year-old morbidly obese gentleman with past medical history significant for coronary artery disease s/p CABG in 2004, diabetes type 2, GERD, hypertension, dyslipidemia presented to the emergency department shortness of breath and coughing along with fevers and noted to have flu/bilateral extensive pneumonia. Initially was admitted to floor and subsequently due to hypoxic respiratory failure was transferred to ICU and intubated. Due to severity of lung disease, patient was paralyzed to maintain vent compliance. Patient was proned multiple times with slight improvement in respiratory status. Patient developed hypotension requiring presser support. Patient completed course of antibiotics and Tamiflu. Despite this, patients condition continued to worsen. Developed ATN requiring temporary dialysis. During third course of dialysis, patient developed afib with RVR and dialysis session was terminated early. EKG was taken showing ST elevations in leads III and aVF. Troponin was elevated. Conversation was held with patient's family, who decided to transition the patient to comfort care. Patient was transitioned to comfort care and pressers were stopped. Patient at 11:48 am, 09/19/2024. Additional Data Confirmation of : no pulse, no respirations, no heart sounds and pupils fixed and dilated Family: at bedside Attending/PCP notified?: Yes Attending physician: Devora Le MD Was code activated?: No Autopsy requested?: No Organ bank notified?: Yes Advance directives: Yes
--- NOTE | 2024-09-19 13:51 | CHAP ---
10:30 AM Visited by spiritual care volunteer Provided prayer for Patient.
--- NOTE | 2024-09-19 15:26 | PC.NURSE ---
at 1327 spoke with Cynthia Layton from [facility], patient ruled out as donor
--- NOTE | 2024-09-19 15:51 | PD.RESPRO ---
Documentation for date of: 09/19/24 Subjective Subjective Interval history: Patient currently seen in ICU. On ventilator. History was taken based on chart review and information from the ICU team. Per resident note-Mr. Joel is a 69-year-old morbidly obese gentleman with past medical history significant for coronary artery disease s/p CABG in 2004, diabetes type 2, GERD, hypertension, dyslipidemia presented to the emergency department shortness of breath and coughing along with fevers and noted to have flu/bilateral extensive pneumonia. Initially was admitted to floor and subsequently due to hypoxic respiratory failure was transferred to ICU and intubated. In ICU- developed worsening hypoxia in setting of ARDS. Patient currently in prone ventilation, requiring paralytics and sedation. 09/15/2024: Patient currently seen in ICU. In prone ventilation. Labs reviewed. Urine output very poor despite diuretics. Creatinine getting worse. Spoke to Dr. Cornejo-if no improvement in renal function he might need renal replacement therapy in the next 1 to 2 days. 09/16/2024: Patient seen on the bedside in the ICU. In the supine position today, was proned yesterday. Continues to be paralyzed and sedated on mechanical ventilation, FiO2 85%, SaO2 95%. Received bumetanide yesterday, urine output continues to be minimal 5-10 ml despite the fluid intake of almost 2L. Labs showed sodium 136, potassium 5.1, bicarb 23.1, BUN 78, creatinine 4.8, EGFR 13. Kidney functions continue to worsen in the last few days, continues to be anuric, patient is is requiring dialysis. Temporary dialysis catheter was placed today. 09/17/2024: Patient seen on the bedside in the ICU. Patient had a dialysis session 09/16/24. Continues to be paralyzed and sedated on mechanical ventilation, FiO2 85%, SaO2 95%. Received bumetanide yesterday, urine output continues to be minimal 5-10 ml despite the fluid intake of almost 2L. Labs showed sodium 136, potassium 5.2, bicarb 23.7, BUN 83, creatinine 5.5, EGFR 11. Kidney functions continue to worsen in the last few days, continues to be anuric, patient is is requiring dialysis today again. 09/18/2024: Patient seen on the bedside in the ICU. Patient continued continues to be paralyzed and intubated on sedation. Continues to be anuric. Today during dialysis patient developed A-fib with RVR and hypotension, dialysis session was ended early and patient was started on amiodarone drip. Almost 1 L of fluid was removed. Vasopressin was added to Levophed due to increasing pressor requirements. Labs show sodium 132, potassium 4.7, bicarb 23.9, BUN 79, creatinine 5.4, EGFR 11. ABG continues to show respiratory acidosis. 09/19/24: Patient seen on the bedside in the ICU. Patient is unable to maintain saturation well, is being ventilated with Ambu bag. He is hemodynamically unstable, unable to maintain MAP at the appropriate level despite being on 2 vasopressors. Due to multiorgan failure and overall poor condition patient was not able to tolerate dialysis, did not proceed with dialysis at this time. ICU team had a discussion with patient's family, it was decided to transition to comfort care and change patient's status to DNR. At 11:48 AM patient was pronounced . Exam Vital Signs Temp Pulse Resp BP Pulse Ox O2 Del Method O2 Flow Rate 100.9 F H 107 H 32 H 86/50 L 82 L Mechanical Ventilation 40 09/19/24 08:00 09/19/24 11:30 09/19/24 07:44 09/19/24 11:30 09/19/24 11:30 09/19/24 08:00 09/17/24 10:45 FiO2 100 09/19/24 08:00 Narrative Exam Physical Exam General: Sedated, paralyzed on mechanical ventilation. In supine position. HEENT: Normocephalic, atraumatic, mucous membranes moist. Heart: Regular rate and rhythm, no murmurs. Lungs: Clear to auscultation with no wheezing or crackles. Abdomen: Soft, nondistended, nontender, positive bowel sounds. ?No guarding or rebound tenderness. Neurologic: Impossible to assess patient is paralyzed and sedated. Extremities: Moderate lower and upper extremity edema. Skin: No rash or ecchymoses. Objective Labs 09/19/24 05:13 09/19/24 05:13 Labs: Laboratory Results - last 24 hr 09/19/24 09/19/24 04:10 05:13 WBC 31.1 H D RBC 4.51 Hgb 14.2 Hct 42.1 MCV 93 MCH 31.5 MCHC 33.7 RDW Std Deviation 51.8 H Plt Count 60 L D Neut % (Auto) 87 H Lymph % (Auto) 2 L Mckinley % (Auto) 3 Eos % (Auto) 0 Baso % (Auto) 1 Neut # (Auto) 27.1 H Lymph # (Auto) 0.5 L Mckinley # (Auto) 1.0 H Eos # (Auto) 0.1 Baso # (Auto) 0.2 Immature Gran # (Auto) 2.24 H Absolute Nucleated RBC 0.05 H Immature Gran % 7 H Nucleated RBC % 0 PT 15.1 H INR 1.4 H APTT 39.6 H Fibrinogen 386 H D-Dimer > 3820 H Puncture Site Left Radial ABG pH 7.15 L* ABG pCO2 71 H* ABG pO2 52 L* D ABG HCO3 25 ABG O2 Saturation 80 L ABG Base Excess -6 L FiO2 21 Sodium 133 L Potassium 5.5 H D Chloride 95 L Carbon Dioxide 22.5 Anion Gap 16 BUN 76 H Creatinine 5.8 H* Estim Creat Clear Calc 14.0 L eGFR 10 L* BUN/Creatinine Ratio 13 Glucose 81 Calculated Osmolality 287 Calcium 8.2 L Corrected Calcium 9.2 Total Bilirubin 1.0 AST 74 H ALT 82 H Alkaline Phosphatase 133 H D Troponin I 3.531 H* Total Protein 5.1 L Albumin 2.8 L Globulin 2.3 Albumin/Globulin Ratio 1.2 Misc Test Result Platelets confirmed ABG Interpretation ABG results: 09/08/24 09/09/24 09/10/24 22:55 18:09 04:18 ABG pH 7.40 7.41 7.38 ABG pCO2 42 44 48 ABG pO2 75 L 59 L* 68 L ABG HCO3 26 28 H 29 H ABG O2 Saturation 95 90 L 93 ABG Base Excess 1 3 3 09/10/24 09/11/24 09/12/24 12:16 04:34 04:00 ABG pH 7.43 7.43 7.45 ABG pCO2 46 48 45 ABG pO2 49 L* 48 L* 55 L* ABG HCO3 30 H 32 H 31 H ABG O2 Saturation 84 L 83 L 88 L ABG Base Excess 5 H 7 H 6 H 09/13/24 09/13/24 09/13/24 13:06 17:37 22:17 ABG pH 7.45 7.26 L D 7.35 ABG pCO2 45 76 H* D 57 H D ABG pO2 53 L* 100 D 84 ABG HCO3 31 H 34 H 31 H ABG O2 Saturation 87 L 96 96 ABG Base Excess 6 H 4 H 4 H 09/14/24 09/14/24 09/14/24 04:10 06:03 06:23 ABG pH 7.11 L* D 7.09 L* 7.15 L* ABG pCO2 106 H* D 115 H* 91 H* D ABG pO2 122 H D 90 D 100 ABG HCO3 34 H 35 H 32 H ABG O2 Saturation 98 94 97 ABG Base Excess 0 0 0 09/15/24 09/15/24 09/15/24 04:44 08:45 15:00 ABG pH 7.22 L 7.19 L* 7.18 L* ABG pCO2 69 H D 72 H* 72 H* ABG pO2 67 L D 62 L 102 D ABG HCO3 29 H 27 H 27 H ABG O2 Saturation 92 89 L 98 ABG Base Excess -1 -3 -3 09/16/24 09/17/24 09/17/24 04:18 04:34 10:29 ABG pH 7.20 L 7.18 L* 7.24 L ABG pCO2 67 H 69 H 69 H ABG pO2 75 L D 86 142 H D ABG HCO3 26 26 29 H ABG O2 Saturation 94 95 99 H ABG Base Excess -4 L -4 L 0 09/18/24 09/19/24 04:08 04:10 ABG pH 7.16 L* 7.15 L* ABG pCO2 75 H* 71 H* ABG pO2 86 D 52 L* D ABG HCO3 26 25 ABG O2 Saturation 95 80 L ABG Base Excess -4 L -6 L Quality Measures Quality Measures sepsis Current suspected stage: sepsis Possible source: pulmonary Blood cultures ordered: yes Antibiotic ordered: Yes Advance care planning discussed with:: other Assessment & Plan Assessment Current Active Medications: Generic Name Dose Route Start Last Admin Trade Name Freq PRN Reason Stop Dose Admin Dexmedetomidine/Sodium Chloride 200 mcg in 50 mls @ 5.756 mls/hr 09/13/24 14:54 09/13/24 16:45 Precedex Ivpb IV 10/13/24 14:53 0 mcg/kg/hr .Q8H42M PRN 0 mls/hr Per PROTOCOL Titration Protocol 0.2 MCG/KG/HR Propofol 1,000 mg in 100 mls @ 3.454 mls/hr 09/13/24 22:11 09/19/24 11:48 Diprivan Ivpb IV 10/13/24 16:46 0 mcg/kg/min .Q24H PRN 0 mls/hr PER PROTOCOL Titration Protocol 5 MCG/KG/MIN Midazolam HCl 100 mg in 100 mls @ 1 mls/hr 09/13/24 22:12 09/19/24 11:48 Versed Pf Inj In Ns Premix IV 09/22/24 22:11 0 mg/hr .Q24H PRN 0 mls/hr PER PROTOCOL Titration Protocol 1 MG/HR Fentanyl Citrate 2,500 mcg in 250 mls @ 2.5 mls/hr 09/19/24 09:38 Sublimaze Inj 2,500 Mcg/250 Ml Bag IV 09/22/24 22:11 .Q24H PRN PER PROTOCOL Protocol 25 MCG/HR Norepinephrine Bitartrate 16 mg in 250 mls @ 5.719 mls/hr 09/19/24 11:00 Levophed In Ns 16mg/250ml IV 10/19/24 10:59 .Q24H PRN PER protocol Protocol 0.05 MCG/KG/MIN Vasopressin/Sodium Chloride 20 unit in 100 mls @ 9 mls/hr 09/19/24 11:00 Vasostrict/Ns Ivpb IV 10/19/24 10:59 .Q11H7M PRN PER PROTOCOL Protocol 0.03 UNIT/MIN Plan The patient is a 69-year-old morbidly obese gentleman with past medical history significant for coronary artery disease s/p CABG in 2004, diabetes type 2, GERD, hypertension, dyslipidemia presented to the emergency department shortness of breath and coughing along with fevers and noted to have flu/bilateral extensive pneumonia. Initially was admitted to floor and subsequently due to hypoxic respiratory failure was transferred to ICU and intubated. Nephrology was consulted due to LEWIS and dialysis. #LEWIS- ATN #Hyperkalemia #Hyperphosphatemia #Non-anion gap respiratory acidosis Most likely ATN in the setting of of shock and prolonged hypotension. Electrolyte abnormalities are due to LEWIS. NAGMA in the setting of permissive hypercapnia due hypoventilation for ARDS protocol. 09/15/24: Patient was put in the prone position due to acute hypoxic respiratory failure and ARDS. Daily urine output 0.4 L. Bumex 1 mg once and Bumex 2 mg once was given, patient continues to have poor urine output. Patient received kayexalate 30 g once. 09/16/2024: Patient continues to have poor urine output 5 to 10 mL/h. Labs showed sodium 136, potassium 5.1, bicarb 23.1, BUN 78, creatinine 4.8, EGFR 13. Temporary dialysis catheter was placed. Patient would require dialysis due to his kidney failure. 09/17/2024: Hemodialysis session was finished earlier due to A-fib with RVR and hypotension.Labs show sodium 132, potassium 4.7, bicarb 23.9, BUN 79, creatinine 5.4, EGFR 11. Plan: Due to multiorgan failure patient is not a candidate for hemodialysis. Family decided to transition to comfort care. #A-fib with RVR #Congestive heart failure #HTN #CAD s/p CABG #AHRF #ARDS #Transaminitis #T2DM #Leukocytosis #Thrombocytopenia #Severe bilateral viral pneumonia #Pressure ulcers - comfort care Plan of care discussed with attending Dr. Meng. Benita Donald MD, PGY 1. Attending Provider Attestation/Addendum Patient seen and examined with resident physician Dr. Bailey. Note reviewed, agree with findings and recommendations. Clinically patient seems to be doing poorly. Cannot do dialysis as he is hemodynamically unstable. seems to be imminent. On 100% oxygenation with FiO2 less than 84. Prognosis remains guarded.
--- NOTE | 2024-09-19 16:28 | PC.NURSE ---
Elena, pt sister at bedside
--- NOTE | 2024-09-19 18:50 | DES_ITS ---
<Statement entered by Devora Le MD - 10/12/24 07:42> I reviewed the resident?s note and agree with findings and plan as documented in the resident?s note. Documentation for date of: 09/19/24 Summary Date and Time Date of admission: 09/08/24 23:01 Date of : 09/19/24 Time of : 11:48 Summary Hospital Course: 69-year-old male with past medical history of coronary artery disease and open heart surgery in 2004 for bypass surgery, gastritis/GERD, [id number] type 2 diabetes is presenting to the ED on 09/08 with worsening shortness of breath and cough. Patient stated that about 1 week prior to arrival his symptoms started with some mild coughing and shortness of breath which was worse with ambulation. During this time he started to develop subjective fevers but did not check his temperature. Patient went to his family care physician who gave him oral antibiotics and some form of injection, he was told that if his symptoms do not improve to present to the ED. Patient has extensive history of cardiac disease, last visited the auto glass technician about a year ago and states that at that time everything was fine. Symptoms continued to progress despite outpatient antibiotics, prompting ED visit. Patient was admitted to the floors, found to be positive for influenza. Chest imaging indicated severe pneumonia. Patient placed on 40 L/min O2 at 100% FiO2 with minimal improvement in saturations. Patient given breathing treatment, placed on BiPAP, and given Lasix with moderate improvement in symptoms. Patient reported using BiPAP at home for sleep apnea. The following day, patient reported mild subjective improvement in symptoms. Patient desaturated when changed to HFNC. ICU was consulted for continued respiratory distress and desaturation when off BiPAP. Patient continued to be treated on the floors using BiPAP, Duonebs, and steroids, however developed worsening hypoxia in setting of ARDS. Patient eventually was brought to ICU and proned without significant improvement, required paralytics and intubation. After sedation, patient developed hypot ension requiring pressors, which was quickly weaned off. Patient proned for 16 hours with 8 hour breaks. ABG after proning showed improvement. Patient developed worsening LEWIS with decreasing urine output despite diuretics, nephrology consulted and agreed to start patient on dialysis. Left IJ hemodialysis catheter was placed, and patient was started on hemodialysis for low urine output, in the setting of ATN. During dialysis patient developed worsening hypotension associated with new onset afib w/ RVR. Dialysis was terminated early, and amiodarone drip was initated after a 150ml amiodorone to estiven. Afib was terminated, and patient returned to regular rate and rhythm. Due to increasing levophed requirements, vasopressin was initiated. During third course of dialysis, patient developed afib with RVR and dialysis session was terminated early. EKG was taken showing ST elevations in leads III and aVF. Troponin was elevated. Conversation was held with patient's family, who decided to transition the patient to comfort care. Patient was transitioned to comfort care and pressers were stopped. Patient at 11:48 am, 09/19/2024. Anthony Griffin, PGY-1 Additional Data Confirmation of as documented by pronouncing clinician: no pulse, no respirations, no heart sounds and pupils fixed and dilated Family: at bedside Attending/PCP notified?: Yes Attending physician: Devora Le MD Was code activated?: No Autopsy requested?: No appeals examiner notified?: No Organ bank notified?: Yes Advance directives: Yes Hospice patient?: No Visit Providers Provider Primary care physician: Guanakito Baig MD Consults: 09/10/24 12:01 Consult to Seed Sorter Stat Comment: ARDS Consulting Provider: Ayanna Cornejo 09/11/24 17:01 Referral Wound Care Routine Comment: Left posterior thigh chronic stage 2 ulcer 09/12/24 16:43 Referral Nutritional Services Routine Comment: Instructions: Wounds Diagnosis Contributing Factors (1) Acute respiratory distress syndrome (ARDS): (2) Acute hypoxic respiratory failure: (3) Bilateral pneumonia: (4) STEMI (ST elevation myocardial infarction): (5) Acute tubular necrosis due to ischemia: (6) Sepsis: (7) Electrolyte imbalance: Discharge Plan Plan Patient Disposition: Prescriptions/Referrals Referrals: Guanakito Baig MD [Primary Care Provider] - Patient/Caregiver Discharge Instructions Print Language: Korean
[2024-09-23 06:57] LABS: Heparin-Induced PLT AB NEGATIVE (NEGATIVE)
== END 2024-09-19 11:48 | disposition expired | DRG 208 ==
LOC: SERX 19:58 → SERHOLD 23:08 → S2NX 09-09 08:29 → S2SX 09-16 09:53 → S2NX 09-16 13:38
PROVIDERS: Internal Medicine; Student in an Organized Health Care Education/Training Program; Admitting Provider Internal Medicine; Emergency Provider Emergency Medicine; PCP Family Medicine; Visit Provider Internal Medicine
DX: J10.08 Influenza due to other identified influenza virus with other specified pneumonia (principal); N17.0 Acute kidney failure with tubular necrosis; J80 Acute respiratory distress syndrome; E87.1 Hypo-osmolality and hyponatremia; Z68.42 Body mass index [BMI] 45.0-49.9, adult; I50.20 Unspecified systolic (congestive) heart failure; R57.9 Shock, unspecified; D70.9 Neutropenia, unspecified; D69.6 Thrombocytopenia, unspecified; E11.9 Type 2 diabetes mellitus without complications; R74.8 Abnormal levels of other serum enzymes; E66.01 Morbid (severe) obesity due to excess calories; I25.10 Atherosclerotic heart disease of native coronary artery without angina pectoris; Z95.1 Presence of aortocoronary bypass graft; E78.5 Hyperlipidemia, unspecified; J12.9 Viral pneumonia, unspecified; E87.5 Hyperkalemia; E11.65 Type 2 diabetes mellitus with hyperglycemia; L89.152 Pressure ulcer of sacral region, stage 2; I11.0 Hypertensive heart disease with heart failure; G47.30 Sleep apnea, unspecified; E83.39 Other disorders of phosphorus metabolism; I48.91 Unspecified atrial fibrillation
CPT/HCPCS: 36415; 36600; 71045; 71275; 76705; 80048; 80053; 80061; 80069; 80074; 80202; 80307; 81001; 82803; 83036; 83605; 83735; 83880; 84100; 84145; 84484; 85025; 85379; 85610; 85730; 86022; 86331; 86635; 86703; 86706; 87040; 87081; 87106; 87205; 87400; 87449; 87634; 87811; 89220; 93005; 93306; 94002; 94003; 94640; 94644; 94660; 96361; 96365; 96372; 96374; 99284; 99291; A4649; A9270; J0283; J0330; J0456; J0612; J0692; J0696; J1100; J1643; J1650; J1815; J1940; J2250; J2251; J2470; J2543; J2598; J2704; J2919; J3010; J3371; J3372; J3490; J7030; J7040; J7050; P9047; Q9967; J1644; J3370